=== PATIENT | female | born 1940 | race Caucasian/White ===

== ENCOUNTER 2021-09-12 18:33 | Observation (INO) | payer MEDICARE, SELFPAY ==
[2021-09-12] VITALS (7 sets, daily range): BP systolic 159–178; BP diastolic 72–102; PULSE 54–60; RESP 18–23; TEMP 36.2–36.3; O2SAT 94–100; BMI 19.8
--- NOTE | ~2021-09-12 | XR_ITS ---
EXAMINATION: XR chest 1V portable INDICATION: Shortness of breath and hypoxia TECHNIQUE: Portable AP chest at 1921 hours COMPARISON: None available FINDINGS: There are minimal airspace opacities of the lung bases. No pleural effusion or pneumothorax is identified. The cardiomediastinal silhouette is normal. IMPRESSION: 1. Minimal bibasilar airspace opacities, consistent with atelectasis versus pneumonia. Reviewed, dictated and finalized at location A. IMPRESSION: 1. Minimal bibasilar airspace opacities, consistent with atelectasis versus pne umonia.
--- NOTE | ~2021-09-12 | CT_ITS ---
EXAMINATION: CTA chest PE protocol DATE: 09/13/2021 09:58 INDICATION: Shortness of breath TECHNIQUE: Computed tomography angiography (CTA) of the chest was performed with 100 mL Omnipaque-350 intravenous contrast timed to evaluate the pulmonary arteries. Coronal maximum intensity projection 3D-reconstructions were created by the technologist. The dose-length product (DLP) was 190.23 mGy-cm. Automated exposure control and iterative reconstruction technique were employed. COMPARISON: None. FINDINGS: The pulmonary arteries are well-opacified. No pulmonary embolism is identified. There is mi ld motion artifact in the lung bases limiting sensitivity. There is moderate emphysema. Atelectasis i s noted in the lower lobes. There is no pleural effusion or pneumothorax. No pathologically enlarged thoracic lymph nodes are identified. The heart size is normal. The gallbladder is surgically absent. There is mild thoracic and moderate lumbar spondylosis. IMPRESSION: 1. No pulmonary embolus identified. Reviewed, dictated and finalized at location A.
--- NOTE | 2021-09-12 18:42 | ECG_ITS ---
Measurements Intervals [place] Rate: 58 P: PA: 0 QRS: 40 QRSD: 99 T: 82 QT: 422 QTc: 418 Interpretive Statements SINUS BRADYCARDIA BORDERLINE T WAVE ABNORMALITY- HIGH LATERAL LEADS BASELINE ARTIFACT- II, III, AVR, AVL, AVF, V1-V6 BORDERLINE ECG Electronically Signed On 09-15-2021 8:54:00 CDT by Corey Mcnamara D.O.
--- NOTE | 2021-09-12 18:44 | ED.GENADULT ---
HPI - General Adult General Chief complaint: Shortness of Breath/Dyspnea Stated complaint: AMB Source: patient Mode of arrival: EMS Limitations: no limitations History of Present Illness HPI narrative: Rossy is an 80F with a PMH of anxiety, tobacco abuse, and fibromyalgia brought in by EMS for SOB and cough. It started about 2 hours ago when she just couldn't catch her breath. She is coughing with it as well. She has some slight discomfort in her left chest that does not radiate. She denies N/V and lightheadedness. She denies asthma/COPD and has never had this happen before. Per EMS she was low 80's on arrival but came up to mid 90's with albuterol and 15L by non-rebreather. Related Data Home Medications Medication Instructions Recorded Confirmed atenolol 100 mg PO DAILY 09/12/21 09/12/21 buspirone 10 mg PO TID 09/12/21 09/12/21 gabapentin 600 mg PO DAILY 09/12/21 09/12/21 levothyroxine 100 mcg PO DAILY 09/12/21 09/12/21 pregabalin 100 mg PO BID 09/12/21 09/12/21 tizanidine 4 mg PO HS 09/12/21 09/12/21 Allergies Allergy/AdvReac Type Severity Reaction Status Date / Time No Known Allergies Allergy Verified 09/13/21 08:52 Review of Systems Constitutional: Constitutional: Denies chills and Denies fever(s) Eyes: Eyes: Reports no additional eye complaints ENT: Reports system reviewed and no additional complaints, except as documented Cardiovascular: Cardiovascular: Reports as per HPI Respiratory: Respiratory: Reports as per HPI Gastrointestinal: Gastrointestinal: Reports no additional gastrointestinal complaints Genitourinary: Genitourinary: Reports no additional female genitourinary complaints Musculoskeletal: Musculoskeletal: Reports no additional musculoskeletal complaints Integumentary/Breasts: Skin/Breast: Reports system reviewed and no additional complaints, except as docu Neurologic: Reports system reviewed and no additional complaints, except as documented Psychiatric: Psychiatric: Reports no additional psychiatric complaints Endocrine: Endocrine: Reports no additional endocrine complaints Hematologic/Lymphatic: Hematologic/Lymphatic: Reports no additional hematologic/lymphatic complaints Allergic/Immunologic: Allergic/Immunologic: Reports no additional allergic/immunologic complaints [facility] Social History Social History Smoking status: Never smoker Second hand tobacco smoke exposure: No Alcohol intake: never Substance use: never Spiritual care concerns: No Exam Const: General: alert and ill appearing; No confusion Orientation/consciousness: patient oriented x3 Limitations: No altered mental status Other: mild to moderate distress HENMT: Head: normal to inspection Other: atrauamtic, normocephalic Eyes: Conjunctivae: conjunctivae normal Pupils: Equal, round and reactive pupils present Neck: Neck: normal visual inspection Chest: Chest palpation & inspection: normal inspection of the chest Resp: Effort & Inspection: labored, tachypneic and uses accessory muscles Other: Tachypnea, decreased breath sounds and crackles on the right side Cardio: Rate: tachycardic Rhythm: regular rhythm Heart sounds: no murmurs GI: Inspection: non-distended GI Palp: Yes Soft to palpation, No Tenderness to palpation present (GI) and No Guarding due to palpation present (GI) : General: Yes no CVA tenderness Back/Spine/Pelvis: Back: no CVA tenderness Skin: General skin exam: normal color Rashes: no rashes Neuro: General: patient oriented x3 and moves all extremities Extrem: General: normal to inspection Psych: Appearance: grossly normal Mental Status: mental status grossly normal Thought content: Yes Normal thought content present Course Course Emergency Course: Rossy was evaluated. Ordered EKG, CXR and labs and she was placed. While drawing labs she calmed down and her O2 was weaned down to 5L. EKG showed Sinus br
[2021-09-12 19:09] LABS: Base Excess ABG -0.3 mmol/L (0-2); HCO3 ABG 25.2 mmol/L (23-29); Oxygen Content ABG 20.6 %vol (16.0-22.0); Oxygen Saturation ABG 98.1 % (95-97); Oxyhemoglobin 96.1 % (94-100); PCO2 ABG 44.2 mmHg (35-45); PO2 ABG 134.6 mmHg (75-85); Total Hemoglobin 15.1 g/dL (12.0-18.0); pH ABG 7.37 (7.35-7.45)
[2021-09-12 19:14] LABS: Basophils Absolute Auto 0.07 K/mm3 (0.00-0.10); Basophils Percent Auto 0.8 % (0.0-1.0); Eosinophils Absolute Auto 0.36 K/mm3 (0.02-0.50); Hematocrit 45.3 % (35.0-42.0); Hemoglobin 14.5 g/dL (11.7-13.8); Immature Granulocyte Absolute 0.02 K/mm3 (0.00-0.00); Immature Granulocyte Percent A 0.2 % (0.0-0.0); Lymphocytes Absolute Auto 3.31 K/mm3 (1.10-4.50); Lymphocytes Percent Auto 37.2 % (18.0-42.0); Mean Platelet Volume 11.1 fl (9.2-11.8); Monocytes Absolute Auto 0.63 K/mm3 (0.10-0.90); Monocytes Percent Auto 7.1 % (2.0-11.0); Neutrophils Absolute Auto 4.5 K/mm3 (1.7-7.2); Neutrophils Percent Auto 50.7 % (50.0-70.0); Platelet Count Result 215 K/mm3 (150-420); Red Blood Count 4.53 M/mm3 (4.20-5.40); Red Cell Distribution Width 14.6 % (11.6-14.4); White Blood Count 8.9 K/mm3 (4.8-10.8)
[2021-09-12 19:19] LABS: Device NON-REBREATHER MASK; Modified Allen's Test Pass; Site Drawn RIGHT RADIAL
[2021-09-12 19:27] LABS: INR 0.9; Prothrombin Time 9.9 Seconds (9.50-12.10)
[2021-09-12 19:32] LABS: Lactic Acid Reflex 1.6 mmol/L (0.4-2.0)
[2021-09-12 19:36] LABS: Alanine Aminotransferase 63 U/L (14-59); Albumin Level 3.6 g/dL (3.4-5.0); Alkaline Phosphatase 73 U/L (46-116); Anion Gap 9 mmol/L (8-16); Aspartate Amino Transferase 27 U/L (15-37); Bilirubin,Total 0.3 mg/dL (0.00-1.00); Blood Urea Nitrogen 23 mg/dL (7-18); Carbon Dioxide 30 mmol/L (21-32); Chloride 103 mmol/L (98-108); Estimated Glomerular Filt Rate 51; Glucose 100 mg/dL (70-99); Magnesium 2.1 mg/dL (1.8-2.4); NT Pro B Type Natriuretic Pept 291 pg/mL (0-450); Osmolality Calculated 297 mOsm/kg (285-295); Potassium 3.7 mmol/L (3.5-5.1); Sodium 142 mmol/L (136-145); Total Protein 7.4 g/dL (6.4-8.2)
[2021-09-12 19:37] LABS: D Dimer 1.03 mg/L (0.19-0.50)
[2021-09-12 19:38] LABS: Troponin I 8.6 ng/L (0.00-60.4)
[2021-09-12 19:59] LABS: Influenza A QL RT-PCR Negative (Negative); Influenza B QL RT-PCR Negative (Negative); SARS-CoV-2 RNA PCR Negative (Negative)
[2021-09-12 21:08] LABS: Appearance Urine Clear (Clear); Bilirubin Urine Negative (Negative); Color Urine Light Yellow (Yellow); Glucose Urine UA Negative (Negative); Ketones Urine Negative (Negative); Leukocyte Esterase Ur Negative (Negative); Nitrate Urine Negative (Negative); Protein Urine Negative (Negative); Urobilinogen Urine 0.2 mg/dL (0.2-1.0); pH Urine 5.5 (5.0-8.0)
[2021-09-12 21:12] LABS: Add Urine Microscopic? YES; Bacteria Urine Trace /hpf; Blood Urine Trace-Intact (Negative); Squamous Epithelial Cell Urine Occasional /hpf (Few); WBC Urine 0-3 /hpf (0-3)
[2021-09-12] MEDS: AZITHROMYCIN 250 MG TABLET 500 MG PO (22:04)
[2021-09-12] MEDS: predniSONE 40 MG, predniSONE 10 MG 50 MG PO (22:04)
--- NOTE | 2021-09-12 22:43 | PC.NURSE ---
pt alert and oriented. pt unable to verify her past medical history at this time. pt past medical history and home medication list update with information obtained from patient and prescription bottles that the pt brought with her.
--- NOTE | 2021-09-12 23:43 | PC.NURSE ---
Patient admitted to room 206 from ER, is alert and oriented times 3 but is a poor historian and is forgetful about some things. Oriented to room and surroundings and call light.
[2021-09-13] MEDS: TIZANIDINE HCL 4 MG TABLET PO (00:46)
[2021-09-13] MEDS: LORazepam (*CRX) 0.5 MG TABLET PO (00:46)
[2021-09-13 04:00] VITALS: BP 153/78; PULSE 63; RESP 20; TEMP 36.2; O2SAT 96
[2021-09-13 05:47] LABS: Basophils Absolute Auto 0.02 K/mm3 (0.00-0.10); Basophils Percent Auto 0.3 % (0.0-1.0); Eosinophils Absolute Auto 0.01 K/mm3 (0.02-0.50); Eosinophils Percent Auto 0.1 % (1.0-6.0); Hematocrit 44.1 % (35.0-42.0); Hemoglobin 14.8 g/dL (11.7-13.8); Immature Granulocyte Absolute 0.03 K/mm3 (0.00-0.00); Immature Granulocyte Percent A 0.4 % (0.0-0.0); Lymphocytes Absolute Auto 1.37 K/mm3 (1.10-4.50); Lymphocytes Percent Auto 18.9 % (18.0-42.0); Mean Corpuscular HGB Conc 33.6 g/dL (32.0-36.0); Mean Corpuscular Hemoglobin 32.7 pg (27.0-31.0); Mean Corpuscular Volume 97.4 fL (78.0-102.0); Mean Platelet Volume 11.2 fl (9.2-11.8); Monocytes Absolute Auto 0.11 K/mm3 (0.10-0.90); Monocytes Percent Auto 1.5 % (2.0-11.0); Neutrophils Absolute Auto 5.7 K/mm3 (1.7-7.2); Neutrophils Percent Auto 78.8 % (50.0-70.0); Platelet Count Result 198 K/mm3 (150-420); Red Blood Count 4.53 M/mm3 (4.20-5.40); Red Cell Distribution Width 14.4 % (11.6-14.4); White Blood Count 7.2 K/mm3 (4.8-10.8)
[2021-09-13 05:54] LABS: Anion Gap 8 mmol/L (8-16); Blood Urea Nitrogen 20 mg/dL (7-18); Calcium 8.8 mg/dL (8.5-10.1); Carbon Dioxide 27 mmol/L (21-32); Chloride 107 mmol/L (98-108); Estimated CRCL calculation 42 ml/min; Estimated Glomerular Filt Rate > 60; Glucose 144 mg/dL (70-99); Osmolality Calculated 299 mOsm/kg (285-295); Potassium 4.3 mmol/L (3.5-5.1); Sodium 142 mmol/L (136-145)
[2021-09-13] MEDS: LEVOTHYROXINE SODIUM 100 MCG TABLET PO (06:16)
[2021-09-13 07:45] VITALS: BP 152/74; PULSE 67; RESP 18; TEMP 36.4; O2SAT 94
[2021-09-13 08:00] VITALS: PULSE 64
[2021-09-13 09:13] VITALS: PULSE 67
[2021-09-13] MEDS: AZITHROMYCIN 250 MG TABLET 500 MG PO (09:13)
[2021-09-13] MEDS: atenoloL 50 MG TABLET 100 MG PO (09:13)
[2021-09-13] MEDS: GABAPENTIN 300 MG CAPSULE 600 MG PO (09:13)
[2021-09-13] MEDS: LORazepam INJ (*CRX) 2 MG/ML VIAL 1 MG IV PUSH (09:13)
[2021-09-13] MEDS: busPIRone HCL 5 MG TABLET 10 MG PO (09:14)
[2021-09-13] MEDS: ENOXAPARIN 60 MG/0.6 ML SYRINGE 54 MG SUB-Q (09:14)
[2021-09-13] MEDS: predniSONE 20 MG TABLET 40 MG PO (09:14)
[2021-09-13 10:20] VITALS: O2SAT 95
--- NOTE | 2021-09-13 11:43 | PM.SD2 ---
Same Day Admit/Disch: HPI History of Present Illness Chief complaint: AMB Narrative: smiley palmer is a 80 year old female that presented to the ED SOB/Dyspnea. She has a pmhx of of htn, hypothyroidism, and copd. Patient noted that yesterday she was outside playing with kitten and went in the house and started experience SOB with chest discomfort she did not do anything to relieve her symptoms. According to patient she has never experience sob and does admit to a hx of smoking. She seem to have a deficiency in memory more than likely undiagnosed dementia.Patient noted that her symptoms resolved before she reached the hospital. Vs 97.6, 67,18,94% RA, 152/74, wbc 7.2, hgb 14.8, hct 44.1, plt 198,dimer 1.03, na 142, K 4.3,BUN 20, Cr 0.73, glucose 144, covid negative, cxr atelectasis versus pneumonia, CTA no PE. The patient denies SOB, CP, palpitation, extremity numbness, lightheadedness, dizziness, constipation, diarrhea, chills, or fever. [facility] Social History Social History Smoking status: Never smoker Second hand tobacco smoke exposure: No Alcohol intake: never Substance use: never Spiritual care concerns: No Same Day Admit/Disch: Med Pre-admit Medications Home Medications Medication Instructions Recorded Confirmed Type atenolol 100 mg PO DAILY 09/12/21 09/12/21 History buspirone 10 mg PO TID 09/12/21 09/12/21 History gabapentin 600 mg PO DAILY 09/12/21 09/12/21 History levothyroxine 100 mcg PO DAILY 09/12/21 09/12/21 History pregabalin 100 mg PO BID 09/12/21 09/12/21 History tizanidine 4 mg PO HS 09/12/21 09/12/21 History albuterol sulfate 1 inh INHALATION QID PRN #8.5 g 09/13/21 Rx azithromycin [Zithromax] 500 mg PO DAILY 10 Days #20 tablet 09/13/21 Rx benzonatate [Tessalon Perles] 100 mg PO BID PRN #30 cap 09/13/21 Rx budesonide-formoterol [Symbicort] 2 puff INHALATION Q12H #10.2 g 09/13/21 Rx guaifenesin [Mucinex] 600 mg PO Q12H PRN #30 tablet 09/13/21 Rx prednisone 10 mg PO DAILY #21 tablet 09/13/21 Rx Exam Narrative: GENERAL: This is a well-nourished, well-developed patient, in no apparent distress. HEAD: normocephalic, atraumatic. EYES: PERRL. Sclera clear/white. Vision is grossly intact. EARS: External ears normal, auditory canals clear and without drainage, TMs normal without perforation. Hearing grossly intact. NOSE: External nose normal with no obvious nasal discharge, nares without redness, no rhinorrhea. THROAT: Mucous membranes moist, posterior pharynx clear. NECK: Neck supple, non-tender without lymphadenopathy, masses or thyromegaly. CARDIOVASCULAR: Regular rate and rhythm without murmurs, gallops, or rubs. RESPIRATORY: Diminished GASTROINTESTINAL: Abdomen soft, non-tender, nondistended. Bowel sounds are active. No hepato-splenomegaly, or palpable masses. No guarding. SKIN: warm, intact with no suspicious lesions or rash, good texture and turgor. NEURO: awake, alert, and oriented to person, place and time. There were no obvious focal neurologic abnormalities. Steady gait EXTREMITIES: Normal range of motion. No edema. No calf tenderness. Negative Homans sign bilaterally. BACK: Nontender without deformity or crepitance. No flank tenderness. DS: Data Data Completed and Pending Labs on day of discharge: Labs from last 24 hours 09/13/21 09/13/21 09/12/21 05:41 05:40 21:00 WBC 7.2 RBC 4.53 Hgb 14.8 H Hct 44.1 H MCV 97.4 MCH 32.7 H MCHC 33.6 RDW 14.4 Plt Count 198 MPV 11.2 Immature Gran % (Auto) 0.4 H Neut % (Auto) 78.8 H Lymph % (Auto) 18.9 [facility] [place] % (Auto) 1.5 L Eos % (Auto) 0.1 L Baso % (Auto) 0.3 Lymph # (Auto) 1.37 [facility] [place] # (Auto) 0.11 Eos # (Auto) 0.01 L Baso # (Auto) 0.02 Abs Immat Gran (auto) 0.03 H Absolute Neuts (auto) 5.7 Absolute Nucleated RBC 0.00 Nucleated RBC % 0.0 PT INR D-Dimer Puncture Site ABG pH ABG pCO2 ABG pO2 ABG
[2021-09-13 12:00] VITALS: PULSE 65
--- NOTE | 2021-09-13 13:05 | PC.NURSE ---
Patient discharging home. All belongings gathered together and sent home with patient. Patients home medications returned. IV site removed, tip intact,dressing applied to site. All discharge instructions and education reviewed with patient and son. Both parties state understanding. Patient accompanied to front door via wheelchair by this nurse. Left via private vehicle with son. Patient denies any question at discharge.
--- NOTE | 2021-09-16 12:02 | PC.NURSE ---
Unable to contact for discharge call back.
== END 2021-09-13 13:05 | disposition home or self-care (01) ==
LOC: CHSED 22:13 → CHS2ND 22:19
PROVIDERS: Admitting Provider Family Medicine; Emergency Provider Family Medicine; PCP Physician Assistant; Visit Provider Family Medicine
DX: J44.9 Chronic obstructive pulmonary disease, unspecified (principal); R79.89 Other specified abnormal findings of blood chemistry; M79.2 Neuralgia and neuritis, unspecified; M79.7 Fibromyalgia; E03.9 Hypothyroidism, unspecified; F41.9 Anxiety disorder, unspecified; Z20.822 Contact with and (suspected) exposure to COVID-19
CPT/HCPCS: 36415; 36600; 71045; 71275; 80048; 80053; 81001; 82805; 83605; 83735; 83880; 84484; 85025; 85380; 85610; 87040; 87502; 93005; 96372; 96374; 99284; 99285; A9270; C9803; G0378; J1650; J2060; J7512; Q9967; U0003; U0005

== ENCOUNTER 2023-12-16 22:37 | Inpatient (IN) | payer MEDICARE, SELFPAY ==
--- NOTE | ~2023-12-16 | XR_ITS ---
EXAMINATION: XR chest 1V portable DATE: 12/16/2023 23:04 INDICATION: Shortness of breath. TECHNIQUE: A single frontal view of the chest was obtained on 2 radiographs. COMPARISON: Chest single view 09/12/2021, chest CT 09/13/2021 FINDINGS: There are lucencies in the lungs, consistent with emphysema. There are airspace opacities i n the lower lung zones. No pleural effusion or pneumothorax. The heart size is normal. Surgical clips in the right upper quadrant are likely from cholecystectomy. IMPRESSION: 1. Airspace opacities in the lower lung zones, consistent with atelectasis versus pneumonia. 2. Emphysema. Reviewed, dictated and finalized at location E. [employer] MANAGER [employer]SPORTATION IMPRESSION: 1. Airspace opacities in the lower lung zones, consistent with atelectasis vers us pneumonia. 2. Emphysema.
--- NOTE | ~2023-12-16 | CT_ITS ---
Clinical Indication: Covid, pneumonia, hypoxia CT Scan of the Chest with Contrast: Technique: Contiguous sections were acquired throughout the chest after intravenous administration of 100 cc of Omnipaque 350. Dose reduction technique was used on this scan by utilizing automated expos ure control and iterative reconstruction technique. The dose-length product (DLP) was 453.14 mGy-cm. COMPARISON: 09/13/2021 Findings: There is no evidence of any significant mediastinal, hilar or axillary lymphadenopathy. There is no c entral pulmonary embolus. Evaluation for small peripheral pulmonary emboli is limited. There is no ev idence of aortic dissection or aneurysm. There is no evidence of pleural or pericardial effusion. There is bibasilar consolidation, right worse than left, likely atelectatic change. Images through the upper abdomen reveal no abnormalities. Impression: No pulmonary embolus seen. Evaluation for small peripheral pulmonary emboli is limited. Probable bibasilar atelectasis, right worse than left. Correlate clinically for pneumonia. Reviewed, dictated and finalized at [facility]. BUILDER AND REPAIRER Impression: No pulmonary embolus seen. Evaluation for small peripheral pulmonary emboli is limited. Probable bibasilar atelectasis, right worse than left. Correlate clinically for pneumonia.
[2023-12-16 22:36] VITALS: BP 92/48; PULSE 72; RESP 15; TEMP 36.6; O2SAT 93
[2023-12-16 22:43] VITALS: O2SAT 87
--- NOTE | 2023-12-16 22:46 | ECG_ITS ---
Measurements Intervals [place] Rate: 56 P: 52 WA: 203 QRS: -7 QRSD: 96 T: 93 QT: 437 QTc: 422 Interpretive Statements SINUS BRADYCARDIA POSSIBLE LEFT ATRIAL ENLARGEMENT BORDERLINE ST-T WAVE ABNORMALITY- LAT/MILLER LAT LEADS BASELINE ARTIFACT- V4-V5 BORDERLINE ECG COMPARED TO ECG 09/12/2021 19:33:41 ST-T WAVE ABNORMALITY NOW PRESENT Electronically Signed On 12-17-2023 6:11:35 PET AMBASSADOR by Coery Mcnamara D.O.
[2023-12-16] MEDS: SODIUM CHLORIDE 0.9% IV 1,000 ML 999 ML IV CONT (23:29)
[2023-12-16 23:42] LABS: Basophils Absolute Auto 0.1 K/mm3 (0.0-0.1); Basophils Percent Auto 0.6 % (0.2-1.2); Eosinophils Absolute Auto 0.3 K/mm3 (0-0.3); Eosinophils Percent Auto 3.7 % (0-4.4); Hematocrit 44.2 % (37.0-47.0); Hemoglobin 13.9 g/dL (12.0-15.0); Immature Granulocyte Absolute 0.01 K/mm3 (0.00-0.031); Immature Granulocyte Percent A 0.1 % (0-0.5); Lymphocytes Absolute Auto 2.53 K/mm3 (0.9-3.2); Lymphocytes Percent Auto 32.3 % (18.3-44.2); Mean Corpuscular HGB Conc 31.4 g/dl (32-36); Mean Corpuscular Hemoglobin 31.7 pg (26-34); Mean Corpuscular Volume 100.9 fl (80-100); Mean Platelet Volume 12.1 fl (7.4-10.4); Monocytes Absolute Auto 0.8 K/mm3 (0.1-0.6); Neutrophils Absolute Auto 4.2 K/mm3 (1.3-6.7); Neutrophils Percent Auto 53.3 % (45.5-73.1); Platelet Count Result 196 k/mm3 (150-375); Red Blood Count 4.38 M/mm3 (4.2-5.4); Red Cell Distribution Width 13.7 % (11.5-14.5); White Blood Count 7.8 K/mm3 (4.5-10.0)
[2023-12-16 23:54] LABS: Lactic Acid Reflex 1.3 mmol/L (0.7-2.0)
[2023-12-16 23:58] LABS: Alanine Aminotransferase 15 U/L (6-35); Albumin Level 3.5 g/dL (3.5-5.1); Alkaline Phosphatase 64 U/L (38-126); Anion Gap 7 mmol/L (8-16); Aspartate Amino Transferase 23 U/L (14-36); Bilirubin,Total 0.9 mg/dL (0.2-1.3); Blood Urea Nitrogen 35 mg/dL (7-17); Calcium 8.8 mg/dL (8.4-10.2); Carbon Dioxide 30 mmol/L (22-30); Chloride 102 mmol/L (98-107); Estimated CRCL calculation 28 ml/min; Estimated Glomerular Filt Rate 43; Glucose 104 mg/dL (65-110); Potassium 3.8 mmol/L (3.4-5.0); Sodium 139 mmol/L (137-145)
[2023-12-17] VITALS (11 sets, daily range): BP systolic 90–128; BP diastolic 47–76; PULSE 55–64; RESP 15–19; TEMP 35.9–36.6; O2SAT 90–100
[2023-12-17 00:05] LABS: NT Pro B Type Natriuretic Pept 387 pg/mL (19.9-100); Troponin I 0.014 ng/mL (0.000-0.034)
[2023-12-17 00:18] LABS: Influenza A QL RT-PCR Negative (Negative); Influenza B QL RT-PCR Negative (Negative); RSV RNA, RT-PCR Negative (Negative); SARS-CoV-2 RNA PCR Positive (Negative)
--- NOTE | 2023-12-17 00:31 | ED.SOB ---
HPI - SOB/Dyspnea General Chief Complaint: Shortness of Breath/Dyspnea Stated Complaint: abnormal cxr Time Seen by Provider: 12/16/23 23:19 Source: patient and old records reviewed Mode of arrival: EMS Limitations: dementia History of Present Illness HPI Narrative: Patient is an 83-year-old female, with past medical history of COPD, CKD, cerebral infarction, who presents the ED via EMS with report of abnormal chest x-ray, hypoxia. Patient is a resident of [facility]. Per detention report, patient is A&O X1 at baseline. NH reported patient has had a recent cough. They performed an outpatient chest x-ray which showed possibility of pneumonia. She was then sent here for further evaluation. EMS noted patient to be hypoxic on room air upon arrival into the upper 80s. She was placed on 2 L nasal cannula. Patient does not typically require oxygen. Patient denies any pain upon my evaluation. Unable to provide any further information. Related Data Home Medications Medication Instructions Recorded Confirmed atenolol 100 mg tablet 100 mg PO DAILY 09/12/21 09/12/21 buspirone 10 mg tablet 10 mg PO TID 09/12/21 09/12/21 gabapentin 100 mg capsule 600 mg PO DAILY 09/12/21 09/12/21 levothyroxine 100 mcg tablet 100 mcg PO DAILY 09/12/21 09/12/21 pregabalin 100 mg capsule 100 mg PO BID 09/12/21 09/12/21 tizanidine 4 mg tablet 4 mg PO HS 09/12/21 09/12/21 Allergies Allergy/AdvReac Type Severity Reaction Status Date / Time No Known Allergies Allergy Verified 09/13/21 08:52 Review of Systems Review of Systems: ROS unobtainable: Yes unobtainable due to mental status [facility] Social History Social History Smoking status: Never smoker Second hand tobacco smoke exposure: No Alcohol intake: never Substance use: never Spiritual care concerns: No Exam Narrative: GENERAL: Elderly, chronically ill-appearing, non-toxic, in no acute distress. HEAD: Normocephalic, atraumatic. ENT: MMs dry. Partially edentulous RESPIRATORY: Airway patent, respirations nonlabored. Clear to auscultation bilaterally, no rales, rhonchi, wheezing. No significant focal lung sounds. CARDIOVASCULAR: Borderline bradycardic with regular rhythm without murmurs, rubs, or gallops. ABDOMINAL: Soft, no appreciable tenderness throughout the abdomen. Normoactive BS. MUSCULOSKELETAL: Moves all extremities. No gross deformities. No significant lower extremity edema. SKIN: Warm, dry, normal color. NEURO: A&O X1-2, knows her name and that she is at [facility]. Intermittently confused. Speech somewhat garbled. No ataxic movements. PSYCHIATRIC: Appropriate mood and affect. Normal interaction. Course Vital Signs Vital signs: Vital Signs Temperature 97.9 F 12/16/23 22:36 Pulse Rate 72 12/16/23 22:36 Respiratory Rate 15 12/16/23 22:36 Blood Pressure 92/48 L 12/16/23 22:36 Pulse Oximetry 93 12/16/23 22:36 Oxygen Delivery Room Air 12/16/23 22:36 Temperature 97.9 F 12/16/23 22:36 Pulse Rate 56 L 12/17/23 01:40 Respiratory Rate 15 12/17/23 01:40 Blood Pressure 112/58 L 12/17/23 01:40 Pulse Oximetry 100 12/17/23 01:40 Oxygen Delivery Room Air 12/16/23 22:43 MDM - SOB/Dyspnea MDM Narrative Medical decision making narrative: Patient presents to ED with abnormal outpatient chest x-ray, found to be hypoxic by EMS, detention reported recent cough. Patient was hypoxic upon arrival into the upper 80s, placed on 2 L nasal cannula. Borderline hypotensive. Fluids ongoing. Afebrile. Cbc without leukocytosis. Stable H& H. CMP fairly unremarkable. Creatinine 1.2. No recent records to compare to. Lactic acid within normal limits at 1.3. Blood cultures were obtained. EKG sinus bradycardia, nonspecific ST changes, no acute STEMI. Baseline troponin 0.014. Will continue to trend. Patient alert and oriented x1-2 (per her baseline), but is abl
--- NOTE | 2023-12-17 00:50 | ECG_ITS ---
Measurements Intervals [place] Rate: 57 P: 50 NE: 272 QRS: 24 QRSD: 112 T: 0 QT: 453 QTc: 444 Interpretive Statements SINUS BRADYCARDIA WITH FIRST DEGREE AV BLOCK CANNOT RULE OUT SEPTAL INFARCT, AGE INDETERMINATE BORDERLINE ST-T WAVE ABNORMALITY- INF/HIGH LAT LEADS BASELINE ARTIFACT- I, II, III, AVR, AVL, AVF, V1, V4-V6 ABNORMAL ECG COMPARED TO ECG 12/16/2023 22:48:51 FIRST DEGREE AV BLOCK NOW PRESENT Electronically Signed On 12-17-2023 6:15:43 ROVING CHANGER by Corey Mcnamara D.O.
[2023-12-17 01:37] LABS: Alveolar/Arterial O2 Gradient 190.9 mmHg; Base Excess ABG -2.6 mEq/l (+/-2.0); Carboxyhemoglobin 0.3 % THb (0-2.0); Fractional Inspired Oxygen 32 %; HCO3 ABG 23.2 mEq/l (22.0-26.0); Methemoglobin ABG 0.4 %THb (0-1.5); Oxygen Content ABG 15.7 %vol (16.0-22.0); Oxygen Saturation ABG 90.7 % (95.0-100.0); Oxyhemoglobin 89.4 % THb (90.0-100.0); PCO2 ABG 43.6 mmHg (35.0-45.0); PO2 ABG 62.5 mmHg (80.0-100.0); PO2 FiO2 Ratio Arterial Blood 1.95 %; Reduced Hemoglobin 9.9 %THb (0-5.0); Total Hemoglobin 12.5 g/dL (12.0-18.0); pH ABG 7.343 (7.350-7.450)
[2023-12-17 01:38] LABS: Device NASAL CANNULA; Modified Allen's Test Pass; Site Drawn RIGHT RADIAL
[2023-12-17] MEDS: SODIUM CHLORIDE 0.9% IV 500 ML 999 ML IV CONT (01:40)
[2023-12-17] MEDS: REMDESIVIR 200 MG/NS 250 ML 200 MG/250 ML BAG 250 MG IVPB (02:35)
--- NOTE | 2023-12-17 03:02 | PM.IMHP ---
H&P: HPI History of Present Illness Date/Time: 12/17/23 03:02 Chief Complaint: Abnormal chest x-ray, shortness of bread Narrative: Patient is a resident of [facility], she has history of COPD however she does not use oxygen at the [facility] facility, at baseline she is alert and oriented times one. She has cough for some days now and outpatient chest x-ray was done which shows the patient has pneumonia, she was also noted to have low oxygen saturation requiring 2 L of oxygen. History was limited by inability of patient to provide details. Patient was found to have acute COVID-19 infection in the ER. She still continued to require 2 L of oxygen however she is awake alert not in distress, Decadron remdesivir was initiated in the ED and I was consulted for admission of this patient for further management Review of Systems Review of Systems: All systems reviewed & are unremarkable except as noted in HPI and below PMFSH Social History Social History Smoking status: Never smoker Second hand tobacco smoke exposure: No Alcohol intake: never Substance use: never Spiritual care concerns: No Meds Home Medications and Allergies Home Medications Medication Instructions Recorded Confirmed Type atenolol 100 mg tablet 100 mg PO DAILY 09/12/21 09/12/21 History buspirone 10 mg tablet 10 mg PO TID 09/12/21 09/12/21 History gabapentin 100 mg capsule 600 mg PO DAILY 09/12/21 09/12/21 History levothyroxine 100 mcg tablet 100 mcg PO DAILY 09/12/21 09/12/21 History pregabalin 100 mg capsule 100 mg PO BID 09/12/21 09/12/21 History tizanidine 4 mg tablet 4 mg PO HS 09/12/21 09/12/21 History albuterol sulfate 90 mcg/actuation 1 inh inhalation QID PRN shortness 09/13/21 Rx aerosol inhaler of breath or wheezing #8.5 grams azithromycin 250 mg tablet 500 mg PO DAILY 10 days #20 tabs 09/13/21 Rx (Zithromax) benzonatate 100 mg capsule 100 mg PO BID PRN cough #30 caps 09/13/21 Rx (Tessalon Perles) budesonide-formoterol HFA 80 2 puff inhalation Q12H #10.2 grams 09/13/21 Rx mcg-4.5 mcg/actuation aerosol inhaler (Symbicort) guaifenesin 600 mg tablet, 600 mg PO Q12H PRN congestion #30 09/13/21 Rx extended release 12 hr (Mucinex) tabs prednisone 10 mg tablet 10 mg PO DAILY #21 tabs 09/13/21 Rx Allergies Allergy/AdvReac Type Severity Reaction Status Date / Time No Known Allergies Allergy Verified 09/13/21 08:52 Vital Signs Vital Signs - 24 hr 12/16/23 22:36 12/16/23 22:43 12/17/23 00:13 Temperature 97.9 F Pulse Rate 72 56 L Respiratory Rate 15 18 Blood Pressure 92/48 L 90/52 L Pulse Oximetry 93 87 L 95 Oxygen Delivery Room Air Room Air 12/17/23 01:40 Temperature Pulse Rate 56 L Respiratory Rate 15 Blood Pressure 112/58 L Pulse Oximetry 100 Oxygen Delivery Exam Narrative: General: Not in distress, dehydrated, frail HEENT: Normocephalic atraumatic, dry oral mucosa Respiratory: Decreased breath sounds diffusely on both lateral lung zones, no wheezing rales or crackle Cardiovascular: Regular rate and rhythm normal no gallop, no edema Gastrointestinal: Nondistended, nontender, bowel sounds within normal Musculoskeletal/skin: Range of motion intact, no rash Neuro: No focal deficits H&P: Results Labs Labs: Short CBC 12/16/23 Range/Units 23:32 WBC 7.8 (4.5-10.0) K/mm3 Hgb 13.9 (12.0-15.0) g/dL Hct 44.2 (37.0-47.0) % Plt Count 196 (150-375) k/mm3 [facility] 12/16/23 23:32 Sodium 139 Potassium 3.8 Chloride 102 Carbon Dioxide 30 BUN 35 H Creatinine 1.20 H Glucose 104 Calcium 8.8 Cardiac Enzymes 12/16/23 Range/Units 23:32 Troponin I 0.014 (0.000-0.034) ng/mL Liver Function 12/16/23 Range/Units 23:32 Total Bilirubin 0.9 (0.2-1.3) mg/dL AST 23 (14-36) U/L ALT 15 (6-35) U/L Alkaline Phosphatase 64 (38-126) U/L Albumin
[2023-12-17 03:47] LABS: Basophils Percent Auto 0.3 % (0.2-1.2); Eosinophils Absolute Auto 0.2 K/mm3 (0-0.3); Eosinophils Percent Auto 3.2 % (0-4.4); Hematocrit 43.8 % (37.0-47.0); Hemoglobin 13.4 g/dL (12.0-15.0); Immature Granulocyte Absolute 0.01 K/mm3 (0.00-0.031); Immature Granulocyte Percent A 0.2 % (0-0.5); Lymphocytes Absolute Auto 1.45 K/mm3 (0.9-3.2); Lymphocytes Percent Auto 24.1 % (18.3-44.2); Mean Corpuscular HGB Conc 30.6 g/dl (32-36); Mean Corpuscular Hemoglobin 31.2 pg (26-34); Mean Corpuscular Volume 102.1 fl (80-100); Mean Platelet Volume 11.7 fl (7.4-10.4); Monocytes Absolute Auto 0.4 K/mm3 (0.1-0.6); Neutrophils Absolute Auto 3.9 K/mm3 (1.3-6.7); Neutrophils Percent Auto 65.2 % (45.5-73.1); Platelet Count Result 166 k/mm3 (150-375); Red Blood Count 4.29 M/mm3 (4.2-5.4); Red Cell Distribution Width 13.8 % (11.5-14.5)
[2023-12-17 03:58] LABS: Anion Gap 6 mmol/L (8-16); Blood Urea Nitrogen 29 mg/dL (7-17); Calcium 8.3 mg/dL (8.4-10.2); Carbon Dioxide 29 mmol/L (22-30); Chloride 105 mmol/L (98-107); Estimated CRCL calculation 28 ml/min; Estimated Glomerular Filt Rate 43; Glucose 108 mg/dL (65-110); INR 0.9; Potassium 3.6 mmol/L (3.4-5.0); Prothrombin Time 12.6 Seconds (11.1-14.7); Sodium 140 mmol/L (137-145)
[2023-12-17 04:00] LABS: CRP 3.6 mg/dL (<1.0); Lactate Dehydrogenase 167 U/L (120-246)
[2023-12-17 04:10] LABS: Troponin I < 0.012 ng/mL (0.000-0.034)
[2023-12-17 04:17] LABS: D Dimer 1.42 ug/mL (<0.48)
--- NOTE | 2023-12-17 04:25 | PC.NURSE ---
Multiple attempts for an IV after IV infiltrated in the right AC. news production supervisor, hospitalist, and EDP made aware. stranding supervisor contacted to attempt IV access.
[2023-12-17 04:43] LABS: Erythrocyte Sedimentation Rate 24 mm/hr (0-20)
[2023-12-17] MEDS: SODIUM CHLORIDE 0.9% IV 1,000 ML 100 ML IV CONT ×2 (05:20→17:18)
[2023-12-17] MEDS: DOXYCYCLINE 100 MG/NS 100 ML 100 MG/100 ML BAG IVPB ×2 (06:01→17:18)
[2023-12-17 07:07] LABS: Troponin I 0.015 ng/mL (0.000-0.034)
--- NOTE | 2023-12-17 08:08 | ADMGEN ---
This patient, Darlin Vega, was admitted to [facility] Surg Room 328-01. Patient/family oriented to hospital policies and general routines including ID bracelet, bed and alarms, visiting hours, pain management, procedures, bathroom and other care routines, personal items, smoking policy, room service/diet, and visiting hours. Information on how to activate the Rapid Response Team has been discussed. Patient/Family are encouraged to report perceived risks to care and to ask questions if they do not understand what they are told or what they should do.
[2023-12-17] MEDS: ENOXAPARIN 30 MG/0.3 ML SYRINGE SUB-Q (09:00)
--- NOTE | 2023-12-17 15:46 | PM.IMPN ---
Progress Note: A&P Assessment and Plan (1) Acute hypoxic respiratory failure: Code(s): J96.01 - Acute respiratory failure with hypoxia Status: Acute Assessment and Plan: Patient was found to be hypoxic on arrival requiring 2 L nasal cannula She was found to have COVID on her respiratory panel Chest x-ray is showing pneumonia Patient was started on doxycycline and Rocephin for bacterial coverage and also dexamethasone and remdesivir for viral coverage Continue to wean O2 for sat greater than 92 Continue nebulized breathing treatments Troponins negative D-dimer 1.42 CTA of the chest was negative for PE (2) COVID-19: Code(s): U07.1 - COVID-19 Status: Acute Assessment and Plan: See above (3) Opacity of lung on imaging study: Code(s): R91.8 - Other nonspecific abnormal finding of lung field Status: Acute Assessment and Plan: Chest x-ray showing pneumonia Currently covered with doxycycline and Rocephin for bacterial coverage, remdesivir and dexamethasone for viral coverage (4) Hypothyroidism: Code(s): E03.9 - Hypothyroidism, unspecified Status: Acute Assessment and Plan: Restarted Synthroid Will check TSH in the morning (5) HTN (hypertension): Code(s): I10 - Essential (primary) hypertension Status: Acute Assessment and Plan: Blood pressure ranging 104/47 to 126/56 Restarted losartan, hydrochlorothiazide, and atenolol (6) Elevated d-dimer: Code(s): R79.89 - Other specified abnormal findings of blood chemistry Status: Acute Assessment and Plan: D-dimer 1.42 CT of the chest was negative for PE Time Spent With Patient Time with patient: 25 - 35 minutes Subjective Date/time seen: 12/17/23 15:46 Interval history: This is an 83 year old female who presented to the hospital today with complaint of SOB from [facility]. She was found to be hypoxic requiring 2L NC. Most of her history was obtained from EMR as the patient is not able to contribute her history due to her mental status. Work up in hospital included CXR showing airspace opacities in the lower lung zones consistent with pneumonia vrs atelectasis., emphysema also noted. Chest CTA was obtained which was negative for PE, shown probable bibasilar atelectasis right worse than left. EKG showing sinus bradycardia, 1st degree AVB. Labs revealed D-dimer of 1.42, pH 7.343, po2 62.5, BUN 29, Creatinine 1.20, eGFR 43, Ca+ 8.3, Troponin negative x3, CRP 3.6, BNP 387. CBC essentially unremarkable. Respiratory panel positive for COVID. Blood cultures obtained and are pending. She was given 1.5L NS, started on dexamethasone, remdesivir, doxycycline, and Rocephin. On examination today patient is alert to voice and oriented x1, minimally interactive today. Patient currently on 2.5 L nasal cannula, vital signs are stable, she is currently afebrile. Review of Systems Review of Systems: ROS unobtainable: Yes unobtainable due to mental status Exam Narrative: General: In no acute distress, well nourished Head: atraumatic, no encephalopathy Eyes: EOMI, PERRLA, sclera clear ENT: moist mucous membranes, nasal passages clear Neck: supple, no JVD, no adenopathy, trachea midline Cardiac: Normal S1 and S2. No murmur, gallops or friction rubs, peripheral pulses intact. Respiratory: Lungs clear to auscultation, diminished throughout, no adventitious lung sounds Gastrointestinal: soft, non-distended, non-tender, normoactive bowel sounds. : voiding without difficulty. Extremities: moves all extremities well, no edema, good ROM, strength 5/5 Skin: clean, dry, intact. No wounds or lesions. Neuro: Alert to voice and oriented x1, cranial nerves intact, no neuro deficits. Psych: Unable to assess due to mental status Objective Data Vital Signs Vital Signs: Vital Signs - 24 hr 12/16/23 22:36 12/16/23 22:43 12/17/23 00:13 Temperature 97.9 F Pulse Ra
[2023-12-17] MEDS: PREGABALIN (*CRX) 50 MG CAPSULE 100 MG PO (17:18)
[2023-12-17] MEDS: risperiDONE 0.25 MG TABLET PO (21:20)
[2023-12-17] MEDS: MIRTAZAPINE 15 MG TABLET PO (21:20)
[2023-12-17] MEDS: ALPRAZolam (*CRX) 0.5 MG TABLET 2 MG PO (21:20)
[2023-12-17] MEDS: REMDESIVIR 100 MG/NS 250 ML 100 MG/250 ML BAG 250 MG IVPB (22:39)
[2023-12-18] VITALS (7 sets, daily range): BP systolic 127–144; BP diastolic 55–69; PULSE 56–64; RESP 18–20; TEMP 36.5–37.2; O2SAT 88–91
[2023-12-18] MEDS: DOXYCYCLINE 100 MG/NS 100 ML 100 MG/100 ML BAG IVPB ×2 (06:06→17:57)
[2023-12-18] MEDS: LEVOTHYROXINE SODIUM 100 MCG TABLET PO (06:07)
--- NOTE | 2023-12-18 08:41 | PM.IMPN ---
Progress Note: A&P Assessment and Plan (1) Acute hypoxic respiratory failure: Code(s): J96.01 - Acute respiratory failure with hypoxia Status: Acute Assessment and Plan: 12/17/23: Patient was found to be hypoxic on arrival requiring 2 L nasal cannula She was found to have COVID on her respiratory panel Chest x-ray is showing pneumonia Patient was started on doxycycline and Rocephin for bacterial coverage and also dexamethasone and remdesivir for viral coverage Continue to wean O2 for sat greater than 92 Continue nebulized breathing treatments Troponins negative D-dimer 1.42 CTA of the chest was negative for PE 12/18/23: No change to current treatment plan (2) COVID-19: Code(s): U07.1 - COVID-19 Status: Acute Assessment and Plan: See above (3) Opacity of lung on imaging study: Code(s): R91.8 - Other nonspecific abnormal finding of lung field Status: Acute Assessment and Plan: 12/17/23: Chest x-ray showing pneumonia Currently covered with doxycycline and Rocephin for bacterial coverage, remdesivir and dexamethasone for viral coverage 12/18/23: No change to current treatment plan (4) Hypothyroidism: Code(s): E03.9 - Hypothyroidism, unspecified Status: Acute Assessment and Plan: 12/17/23: Restarted Synthroid Will check TSH in the morning 12/18/23: No change to current treatment plan (5) HTN (hypertension): Code(s): I10 - Essential (primary) hypertension Status: Acute Assessment and Plan: 12/17/23: Blood pressure ranging 104/47 to 126/56 Restarted losartan, hydrochlorothiazide, and atenolol 12/18/23: no change to current treatment plan (6) Elevated d-dimer: Code(s): R79.89 - Other specified abnormal findings of blood chemistry Status: Acute Assessment and Plan: 12/17/23: D-dimer 1.42 CT of the chest was negative for PE 12/18/23: no change Time Spent With Patient Time with patient: 25 - 35 minutes Subjective Date/time seen: 12/18/23 08:41 Interval history: 12/17/23: This is an 83 year old female who presented to the hospital today with complaint of SOB from [facility]. She was found to be hypoxic requiring 2L NC. Most of her history was obtained from EMR as the patient is not able to contribute her history due to her mental status. Work up in hospital included CXR showing airspace opacities in the lower lung zones consistent with pneumonia vrs atelectasis., emphysema also noted. Chest CTA was obtained which was negative for PE, shown probable bibasilar atelectasis right worse than left. EKG showing sinus bradycardia, 1st degree AVB. Labs revealed D-dimer of 1.42, pH 7.343, po2 62.5, BUN 29, Creatinine 1.20, eGFR 43, Ca+ 8.3, Troponin negative x3, CRP 3.6, BNP 387. CBC essentially unremarkable. Respiratory panel positive for COVID. Blood cultures obtained and are pending. She was given 1.5L NS, started on dexamethasone, remdesivir, doxycycline, and Rocephin. On examination today patient is alert to voice and oriented x1, minimally interactive today. Patient currently on 2.5 L nasal cannula, vital signs are stable, she is currently afebrile. 12/18/23: On examination today patient is alert and oriented x1, lying in bed. She was crying and stating she was scared while in the room when I entered. I tried to reorient her but she immediately forgets where she is. She is currently on room air at this time. Labs today were essentially unremarkable. Review of Systems Review of Systems: All systems reviewed & are unremarkable except as noted in HPI and below ROS unobtainable: Yes unobtainable due to mental status Constitutional: Constitutional: Reports as per HPI and Reports no additional constitutional complaints Eyes: Eyes: Reports as per HPI and Reports no additional eye complaints ENT: Reports system reviewed and no additional complaints, except as documented and Reports a
[2023-12-18] MEDS: ENOXAPARIN 30 MG/0.3 ML SYRINGE SUB-Q (09:15)
[2023-12-18] MEDS: LOSARTAN POTASSIUM 100 MG TABLET BY MOUTH (10:00)
[2023-12-18] MEDS: atenoloL 50 MG TABLET 100 MG PO (10:00)
[2023-12-18] MEDS: PREGABALIN (*CRX) 50 MG CAPSULE 100 MG PO ×2 (10:00→17:57)
[2023-12-18] MEDS: DULoxetine HCL 30 MG CAPSULE.DR PO (10:00)
[2023-12-18] MEDS: hydroCHLOROthiazide 12.5 MG CAPSULE PO (10:00)
[2023-12-18 10:10] LABS: Basophils Percent Auto 0.3 % (0.2-1.2); Hemoglobin 13.1 g/dL (12.0-15.0); Immature Granulocyte Absolute 0.04 K/mm3 (0.00-0.031); Immature Granulocyte Percent A 0.5 % (0-0.5); Lymphocytes Percent Auto 25.1 % (18.3-44.2); Mean Corpuscular HGB Conc 31.2 g/dl (32-36); Mean Corpuscular Hemoglobin 31.3 pg (26-34); Mean Corpuscular Volume 100.5 fl (80-100); Mean Platelet Volume 12.2 fl (7.4-10.4); Monocytes Absolute Auto 0.7 K/mm3 (0.1-0.6); Monocytes Percent Auto 9.4 % (2.6-8.5); Neutrophils Absolute Auto 4.9 K/mm3 (1.3-6.7); Neutrophils Percent Auto 64.7 % (45.5-73.1); Platelet Count Result 181 k/mm3 (150-375); Red Blood Count 4.18 M/mm3 (4.2-5.4); Red Cell Distribution Width 13.4 % (11.5-14.5); White Blood Count 7.6 K/mm3 (4.5-10.0)
[2023-12-18 10:23] LABS: Alanine Aminotransferase 14 U/L (6-35); Albumin Level 2.9 g/dL (3.5-5.1); Alkaline Phosphatase 62 U/L (38-126); Anion Gap 4 mmol/L (8-16); Aspartate Amino Transferase 18 U/L (14-36); Bilirubin,Total 0.3 mg/dL (0.2-1.3); Blood Urea Nitrogen 27 mg/dL (7-17); Calcium 8.6 mg/dL (8.4-10.2); Carbon Dioxide 27 mmol/L (22-30); Chloride 111 mmol/L (98-107); Estimated CRCL calculation 40 ml/min; Estimated Glomerular Filt Rate > 60; Glucose 87 mg/dL (65-110); Potassium 3.8 mmol/L (3.4-5.0); Sodium 142 mmol/L (137-145)
[2023-12-18] MEDS: MIRTAZAPINE 15 MG TABLET PO (21:47)
[2023-12-18] MEDS: REMDESIVIR 100 MG/NS 250 ML 100 MG/250 ML BAG 250 MG IVPB (21:47)
[2023-12-18] MEDS: risperiDONE 0.25 MG TABLET PO (21:47)
[2023-12-18] MEDS: ALPRAZolam (*CRX) 0.5 MG TABLET 2 MG PO (21:47)
[2023-12-19 06:00] VITALS: BP 131/62; PULSE 71; RESP 18; TEMP 36.8; O2SAT 89
[2023-12-19] MEDS: LEVOTHYROXINE SODIUM 100 MCG TABLET PO (06:23)
[2023-12-19] MEDS: SODIUM CHLORIDE 0.9% IV 1,000 ML 100 ML IV CONT (06:23)
[2023-12-19] MEDS: DOXYCYCLINE 100 MG/NS 100 ML 100 MG/100 ML BAG IVPB ×2 (06:24→16:58)
--- NOTE | 2023-12-19 08:52 | PC.NURSE ---
Patient only oriented to person and being verbally abusive to staff and non compliant with redirection, questions, and medications. Will reevaluate again once RN sees other patient's on her assignment.
--- NOTE | 2023-12-19 11:10 | PC.NURSE ---
Patient more compliant and willing to take AM medications.
[2023-12-19 11:18] VITALS: BP 149/60; PULSE 55
[2023-12-19] MEDS: PREGABALIN (*CRX) 50 MG CAPSULE 100 MG PO ×2 (11:18→16:58)
[2023-12-19] MEDS: DULoxetine HCL 30 MG CAPSULE.DR PO (11:18)
[2023-12-19] MEDS: atenoloL 50 MG TABLET 100 MG PO (11:18)
[2023-12-19] MEDS: LOSARTAN POTASSIUM 100 MG TABLET BY MOUTH (11:18)
[2023-12-19] MEDS: hydroCHLOROthiazide 12.5 MG CAPSULE PO (11:18)
[2023-12-19 14:00] VITALS: BP 150/80; PULSE 65; RESP 14; TEMP 36.6; O2SAT 91
--- NOTE | 2023-12-19 14:50 | P.PNIM_ITS ---
Progress Note: A&P Assessment and Plan (1) Acute hypoxic respiratory failure: Code(s): J96.01 - Acute respiratory failure with hypoxia Status: Acute Assessment and Plan: 12/17/23: * Patient was found to be hypoxic on arrival requiring 2 L nasal cannula * She was found to have COVID on her respiratory panel * Chest x-ray is showing pneumonia * Patient was started on doxycycline and Rocephin for bacterial coverage and also dexamethasone and remdesivir for viral coverage * Continue to wean O2 for sat greater than 92 * Continue nebulized breathing treatments * Troponins negative * D-dimer 1.42 * CTA of the chest was negative for PE 12/18/23: * No change to current treatment plan 12/19/23: * Likely de-escalate antibiotics to oral tomorrow this is currently therapy * Continue with the rest the treatment plan (2) COVID-19: Code(s): U07.1 - COVID-19 Status: Acute Assessment and Plan: See above (3) Opacity of lung on imaging study: Code(s): R91.8 - Other nonspecific abnormal finding of lung field Status: Acute Assessment and Plan: 12/17/23: * Chest x-ray showing pneumonia * Currently covered with doxycycline and Rocephin for bacterial coverage, remdesivir and dexamethasone for viral coverage 12/18/23: * No change to current treatment plan (4) Hypothyroidism: Code(s): E03.9 - Hypothyroidism, unspecified Status: Acute Assessment and Plan: 12/17/23: * Restarted Synthroid * Will check TSH in the morning 12/18/23: * No change to current treatment plan (5) HTN (hypertension): Code(s): I10 - Essential (primary) hypertension Status: Acute Assessment and Plan: 12/17/23: * Blood pressure ranging 104/47 to 126/56 * Restarted losartan, hydrochlorothiazide, and atenolol 12/18/23: * no change to current treatment plan (6) Elevated d-dimer: Code(s): R79.89 - Other specified abnormal findings of blood chemistry Status: Acute Assessment and Plan: 12/17/23: * D-dimer 1.42 * CT of the chest was negative for PE 12/18/23: * no change Time Spent With Patient Time with patient: 15 - 25 minutes Subjective Date/time seen: 12/19/23 14:50 Interval history: 12/17/23: This is an 83 year old female who presented to the hospital today with complaint of SOB from [facility]. She was found to be hypoxic requiring 2L NC. Most of her history was obtained from EMR as the patient is not able to contribute her history due to her mental status. Work up in hospital included CXR showing airspace opacities in the lower lung zones consistent with pneumonia vrs atelectasis., emphysema also noted. Chest CTA was obtained which was negative for PE, shown probable bibasilar atelectasis right worse than left. EKG showing sinus bradycardia, 1st degree AVB. Labs revealed D-dimer of 1.42, pH 7.343, po2 62.5, BUN 29, Creatinine 1.20, eGFR 43, Ca+ 8.3, Troponin negative x3, CRP 3.6, BNP 387. CBC essentially unremarkable. Respiratory panel positive for COVID. Blood cultures obtained and are pending. She was given 1.5L NS, started on dexamethasone, remdesivir, doxycycline, and Rocephin. On examination today patient is alert to voice and oriented x1, minimally interactive today. Patient currently on 2.5 L nasal cannula, vital signs are stable, she is currently afebrile. 12/18/23: On examination today patient is alert and oriented x1, lying in bed. She was crying and stating she was scared while in the room when I entered. I tried to reorient her but she imme
--- NOTE | 2023-12-19 14:50 | PM.IMPN ---
Progress Note: A&P Assessment and Plan (1) Acute hypoxic respiratory failure: Code(s): J96.01 - Acute respiratory failure with hypoxia Status: Acute Assessment and Plan: 12/17/23: Patient was found to be hypoxic on arrival requiring 2 L nasal cannula She was found to have COVID on her respiratory panel Chest x-ray is showing pneumonia Patient was started on doxycycline and Rocephin for bacterial coverage and also dexamethasone and remdesivir for viral coverage Continue to wean O2 for sat greater than 92 Continue nebulized breathing treatments Troponins negative D-dimer 1.42 CTA of the chest was negative for PE 12/18/23: No change to current treatment plan 12/19/23: Likely de-escalate antibiotics to oral tomorrow this is currently therapy Continue with the rest the treatment plan (2) COVID-19: Code(s): U07.1 - COVID-19 Status: Acute Assessment and Plan: See above (3) Opacity of lung on imaging study: Code(s): R91.8 - Other nonspecific abnormal finding of lung field Status: Acute Assessment and Plan: 12/17/23: Chest x-ray showing pneumonia Currently covered with doxycycline and Rocephin for bacterial coverage, remdesivir and dexamethasone for viral coverage 12/18/23: No change to current treatment plan (4) Hypothyroidism: Code(s): E03.9 - Hypothyroidism, unspecified Status: Acute Assessment and Plan: 12/17/23: Restarted Synthroid Will check TSH in the morning 12/18/23: No change to current treatment plan (5) HTN (hypertension): Code(s): I10 - Essential (primary) hypertension Status: Acute Assessment and Plan: 12/17/23: Blood pressure ranging 104/47 to 126/56 Restarted losartan, hydrochlorothiazide, and atenolol 12/18/23: no change to current treatment plan (6) Elevated d-dimer: Code(s): R79.89 - Other specified abnormal findings of blood chemistry Status: Acute Assessment and Plan: 12/17/23: D-dimer 1.42 CT of the chest was negative for PE 12/18/23: no change Time Spent With Patient Time with patient: 15 - 25 minutes Subjective Date/time seen: 12/19/23 14:50 Interval history: 12/17/23: This is an 83 year old female who presented to the hospital today with complaint of SOB from [facility]. She was found to be hypoxic requiring 2L NC. Most of her history was obtained from EMR as the patient is not able to contribute her history due to her mental status. Work up in hospital included CXR showing airspace opacities in the lower lung zones consistent with pneumonia vrs atelectasis., emphysema also noted. Chest CTA was obtained which was negative for PE, shown probable bibasilar atelectasis right worse than left. EKG showing sinus bradycardia, 1st degree AVB. Labs revealed D-dimer of 1.42, pH 7.343, po2 62.5, BUN 29, Creatinine 1.20, eGFR 43, Ca+ 8.3, Troponin negative x3, CRP 3.6, BNP 387. CBC essentially unremarkable. Respiratory panel positive for COVID. Blood cultures obtained and are pending. She was given 1.5L NS, started on dexamethasone, remdesivir, doxycycline, and Rocephin. On examination today patient is alert to voice and oriented x1, minimally interactive today. Patient currently on 2.5 L nasal cannula, vital signs are stable, she is currently afebrile. 12/18/23: On examination today patient is alert and oriented x1, lying in bed. She was crying and stating she was scared while in the room when I entered. I tried to reorient her but she immediately forgets where she is. She is currently on room air at this time. Labs today were essentially unremarkable. 12/19/23: On examination today patient alert to voice and oriented x1, lying in the bed. She denies any new complaints today. Vital signs are stable, she is afebrile, she is currently on room air. Will continue with remdesivir and dexamethasone, doxycycline and Rocephin for bacterial coverage. We might be ab
[2023-12-19 20:29] VITALS: BP 140/60; PULSE 62; RESP 18; TEMP 36.2; O2SAT 95
[2023-12-19] MEDS: MIRTAZAPINE 15 MG TABLET PO (20:52)
[2023-12-19] MEDS: risperiDONE 0.25 MG TABLET PO (20:52)
[2023-12-19] MEDS: ALPRAZolam (*CRX) 0.5 MG TABLET 2 MG PO (20:52)
--- NOTE | 2023-12-19 23:42 | P.PNCROSS_ITS ---
Event Note Event Note Event Note: Patient lost IV access for 4th time and she is refusing further IV attempts. R emdesivir on hold, doxycycline changed to oral and dexamethasone changed to oral. Day Hospitalist to determine if patient needs to continue IV medications and midline vs change Rocephin to oral and DC remdesivir.
[2023-12-20 05:30] VITALS: BP 137/60; PULSE 53; RESP 16; TEMP 36.6; O2SAT 88
[2023-12-20] MEDS: LEVOTHYROXINE SODIUM 100 MCG TABLET PO (05:42)
[2023-12-20 06:27] LABS: Basophils Absolute Auto 0.1 K/mm3 (0.0-0.1); Basophils Percent Auto 0.8 % (0.2-1.2); Eosinophils Percent Auto 0.1 % (0-4.4); Hematocrit 45.2 % (37.0-47.0); Hemoglobin 14.1 g/dL (12.0-15.0); Immature Granulocyte Absolute 0.17 K/mm3 (0.00-0.031); Lymphocytes Absolute Auto 2.94 K/mm3 (0.9-3.2); Lymphocytes Percent Auto 33.8 % (18.3-44.2); Mean Corpuscular HGB Conc 31.2 g/dl (32-36); Mean Corpuscular Hemoglobin 31.4 pg (26-34); Mean Corpuscular Volume 100.7 fl (80-100); Mean Platelet Volume 11.7 fl (7.4-10.4); Monocytes Percent Auto 11.2 % (2.6-8.5); Neutrophils Absolute Auto 4.5 K/mm3 (1.3-6.7); Neutrophils Percent Auto 52.1 % (45.5-73.1); Platelet Count Result 231 k/mm3 (150-375); Red Blood Count 4.49 M/mm3 (4.2-5.4); Red Cell Distribution Width 13.5 % (11.5-14.5); White Blood Count 8.7 K/mm3 (4.5-10.0)
[2023-12-20 06:34] LABS: Alanine Aminotransferase 13 U/L (6-35); Albumin Level 2.9 g/dL (3.5-5.1); Alkaline Phosphatase 59 U/L (38-126); Anion Gap 7 mmol/L (8-16); Aspartate Amino Transferase 20 U/L (14-36); Bilirubin,Total 0.6 mg/dL (0.2-1.3); Blood Urea Nitrogen 28 mg/dL (7-17); Calcium 8.9 mg/dL (8.4-10.2); Carbon Dioxide 21 mmol/L (22-30); Chloride 113 mmol/L (98-107); Estimated CRCL calculation 40 ml/min; Estimated Glomerular Filt Rate > 60; Glucose 88 mg/dL (65-110); Potassium 3.7 mmol/L (3.4-5.0); Sodium 141 mmol/L (137-145)
[2023-12-20] MEDS: hydroCHLOROthiazide 12.5 MG CAPSULE PO (09:29)
[2023-12-20 09:30] VITALS: PULSE 60
[2023-12-20] MEDS: DOXYCYCLINE HYCLATE 100 MG TABLET PO (09:30)
[2023-12-20] MEDS: atenoloL 50 MG TABLET 100 MG PO (09:30)
[2023-12-20] MEDS: DULoxetine HCL 30 MG CAPSULE.DR PO (09:31)
[2023-12-20] MEDS: DEXAMETHASONE 2 MG TABLET 6 MG PO (09:31)
[2023-12-20] MEDS: ENOXAPARIN 40 MG/0.4 ML SYRINGE SUB-Q (09:31)
[2023-12-20] MEDS: LOSARTAN POTASSIUM 100 MG TABLET BY MOUTH (09:31)
[2023-12-20] MEDS: PREGABALIN (*CRX) 50 MG CAPSULE 100 MG PO ×2 (09:31→16:53)
[2023-12-20 09:50] VITALS: RESP 16; O2SAT 91
[2023-12-20] MEDS: SODIUM CHLORIDE 0.9% IV 1,000 ML 100 ML IV CONT (10:01)
[2023-12-20 14:00] VITALS: BP 146/67; PULSE 62; RESP 20; TEMP 35.6; O2SAT 91
--- NOTE | 2023-12-20 14:10 | PM.DS ---
DS: Admitting Diagnosis Discharge Date 12/20/23 Admitting Diagnosis Acute hypoxic respiratory failure COVID-19 DS: Discharge Diagnosis Discharge Diagnosis (1) Acute hypoxic respiratory failure: Code(s): J96.01 - Acute respiratory failure with hypoxia Status: Acute (2) COVID-19: Code(s): U07.1 - COVID-19 Status: Acute (3) Opacity of lung on imaging study: Code(s): R91.8 - Other nonspecific abnormal finding of lung field Status: Acute (4) Hypothyroidism: Code(s): E03.9 - Hypothyroidism, unspecified Status: Acute (5) HTN (hypertension): Code(s): I10 - Essential (primary) hypertension Status: Acute (6) Elevated d-dimer: Code(s): R79.89 - Other specified abnormal findings of blood chemistry Status: Acute DS: Summary Hospital Course Reason for hospitalization: Acute hypoxic respiratory failure Community-acquired Pneumonia COVID-19 Hospital Course: Interval history: 12/17/23: This is an 83 year old female who presented to the hospital today with complaint of SOB from [facility]. She was found to be hypoxic requiring 2L NC.? Most of her history was obtained from EMR as the patient is not able to contribute her history due to her mental status.? Work up in hospital included CXR showing airspace opacities in the lower lung zones consistent with pneumonia vrs atelectasis., emphysema also noted. Chest CTA was obtained which was negative for PE, shown probable bibasilar atelectasis right worse than left. EKG showing sinus bradycardia, 1st degree AVB. Labs revealed D-dimer of 1.42, pH 7.343, po2 62.5, BUN 29, Creatinine 1.20, eGFR 43, Ca+ 8.3, Troponin negative x3, CRP 3.6, BNP 387. CBC essentially unremarkable. Respiratory panel positive for COVID. Blood cultures obtained and are pending. She was given 1.5L NS, started on dexamethasone, remdesivir, doxycycline, and Rocephin.? On examination today patient is alert to voice and oriented x1, minimally interactive today.? Patient currently on 2.5 L nasal cannula, vital signs are stable, she is currently afebrile. 12/18/23: On examination today patient is alert and oriented x1, lying in bed. She was crying and stating she was scared while in the room when I entered. I tried to reorient her but she immediately forgets where she is. She is currently on room air at this time. Labs today were essentially unremarkable. 12/19/23: On examination today patient alert to voice and oriented x1, lying in the bed.? She denies any new complaints today.? Vital signs are stable, she is afebrile, she is currently on room air.? Will continue with remdesivir and dexamethasone, doxycycline and Rocephin for bacterial coverage.? We might be able to deescalate her antibiotics tomorrow and start discharge planning. 12/20/23: Patient has no new complaints today. Vital signs are stable she is afebrile, on room air. She finished 3 days of Remdesivir and Dexamethasone. She has also been on Rocephin and Doxycycline for bacterial coverage of her pneumonia. We will transition today to oral. Labs today are essentially unremarkable. She is stable for discharge back to her nursing facility. She will need to follow up with PCP in 1 week. Final diagnosis: Acute hypoxic respiratory failure due to Community acquired pneumonia, COVID-19 Status at Discharge Cognitive/behavioral status at discharge: Alert oriented x1 Functional status at discharge: bed bound Overall status at discharge: patient is progressing back to baseline Time Spent with Patient Time attestation: Total time spent providing and/or coordinating discharge services: Time spent: Greater than 30 minutes Exam Narrative: General: In no acute distress, appears frail and weak Head: atraumatic, no encephalopathy Eyes: EOMI, PERRLA, sclera clear ENT: moist mucous membranes, nasal passages clear Neck: supple, no JVD, no adenopathy, trachea midline Cardiac: Normal S1 and S2. No murmur, linares
[2023-12-20 20:00] VITALS: BP 134/64; PULSE 62; RESP 20; TEMP 36.2; O2SAT 93
--- NOTE | 2023-12-20 22:00 | PC.NURSE ---
Patient discharge to facility, report given
== END 2023-12-20 21:00 | DRG 177 ==
LOC: ANHED 12-17 02:52 → ANHIMU 12-17 04:21 → ANH3MEDSUR 12-17 06:46
PROVIDERS: Emergency Medicine; Admitting Provider Student in an Organized Health Care Education/Training Program; Emergency Provider Physician Assistant; PCP Physician Assistant; Visit Provider Nurse Practitioner Acute Care
DX: U07.1 COVID-19 (principal); J18.9 Pneumonia, unspecified organism; J96.01 Acute respiratory failure with hypoxia; J44.0 Chronic obstructive pulmonary disease with (acute) lower respiratory infection; I12.9 Hypertensive chronic kidney disease with stage 1 through stage 4 chronic kidney disease, or unspecified chronic kidney disease; N18.9 Chronic kidney disease, unspecified; E03.9 Hypothyroidism, unspecified; R79.89 Other specified abnormal findings of blood chemistry
CPT/HCPCS: 36415; 36600; 71045; 71275; 80048; 80053; 82375; 82728; 82805; 83050; 83605; 83615; 83735; 83880; 84484; 85025; 85380; 85610; 85652; 85730; 86140; 87040; 87637; 93005; 96361; 96365; 96366; 96367; 96375; 99285; A9270; G0378; J0248; J0696; J1100; J1650; J7030; J7040; J8540; Q9967

== ENCOUNTER 2023-12-30 12:33 | Inpatient (IN) | payer MEDICARE, SELFPAY ==
[2023-12-30] VITALS (16 sets, daily range): BP systolic 69–117; BP diastolic 52–94; PULSE 47–55; RESP 12–16; TEMP 36.4; O2SAT 94–100; BMI 21.3
--- NOTE | ~2023-12-30 | XR_ITS ---
EXAMINATION: XR chest PICC line INDICATION: PICC position assessment TECHNIQUE: Portable AP chest at 1310 hours COMPARISON: 1302 hours FINDINGS: The tip of the left upper extremity PICC projects in the proximal superior vena cava. There is mild atelectasis of the lung bases. No pleural effusion or pneumothorax. The cardiomediastinal si lhouette is normal. IMPRESSION: 1. Left upper extremity PICC in the proximal superior vena cava. Reviewed, dictated and finalized at location B. ICE LEARNING COORDINATOR
--- NOTE | ~2023-12-30 | XR_ITS ---
EXAMINATION: XR chest 1V portable INDICATION: Pneumonia TECHNIQUE: Portable AP chest at 1411 hours COMPARISON: 12/16/2023 FINDINGS: There are persistent but improved airspace opacities of the right mid and lower lung zones. No new airspace opacities are identified. No pleural effusion or pneumothorax. The cardiomediastinal silhouette is normal. IMPRESSION: 1. Persistent but improved airspace opacities of the right mid and lower lung zones, consistent with pneumonia. Reviewed, dictated and finalized at location L. ICS TECHNICAL OFFICER IMPRESSION: 1. Persistent but improved airspace opacities of the right mid and lower lung z ones, consistent with pneumonia.
--- NOTE | ~2023-12-30 | US_ITS ---
EXAMINATION: US venous doppler [facility] DATE: 01/03/2024 16:05 INDICATION: Acute pulmonary emboli. TECHNIQUE: Grayscale ultrasound images without and with compression and Doppler ultrasound images of the bilateral lower extremity veins were obtained. COMPARISON: None. FINDINGS: The visualized portions of right common femoral vein, profunda (deep) femoral vein, femoral vein, pop liteal vein, peroneal veins, posterior tibial veins, and greater saphenous vein outflow are patent. The visualized portions of left common femoral vein, profunda femoral vein, femoral vein, popliteal v ein, peroneal veins, posterior tibial veins, and greater saphenous vein outflow are patent. IMPRESSION: 1. No deep venous thrombosis. Reviewed, dictated and finalized at location A. SMISSION REPAIRER
--- NOTE | ~2023-12-30 | CT_ITS ---
EXAMINATION:CT diagnostic chest wo con DATE: 12/30/2023 15:32 INDICATION: Hypoxia. Leukocytosis. TECHNIQUE: Computed tomography (CT) of the chest was performed without intravenous contrast. Automate d exposure control and iterative reconstruction technique were employed. The dose-length product (DLP ) was 205.89 mGy-cm. COMPARISON: Chest CT 12/17/2023 FINDINGS: There is mild scarring at the lung apices. There is mild emphysema. There are airspace opac ities in right lower lobe with volume loss, likely atelectasis. There is mild atelectasis in the lowe r lobes. No pleural effusion. The heart size is normal. There are coronary artery calcifications. No pericardial effusion. Aortic atherosclerosis is noted. There are changes of cholecystectomy. The comm on duct is dilated to 18 mm, increased from 13 mm on 09/13/2021, likely not clinically significant gi krishan the normal alkaline phosphatase and total bilirubin. There are cysts in right kidney measuring up to 17 mm. There is severe cervical and lumbar spondylosis and mild thoracic spondylosis. There is a chronic compression fracture of T12. IMPRESSION: 1. Mild emphysema. 2. Atelectasis in the lungs, worst in right lower lobe. Reviewed, dictated and finalized at location E. ER OPERATOR
--- NOTE | ~2023-12-30 | CT_ITS ---
EXAMINATION: CTA chest PE protocol DATE: 01/02/2024 13:22 INDICATION: Hypoxia. TECHNIQUE: Computed tomography angiography (CTA) of the chest was performed with 100 mL Omnipaque-350 intravenous contrast timed to evaluate the pulmonary arteries. Coronal maximum intensity projection 3D-reconstructions were created by the technologist. Automated exposure control and iterative reconst ruction technique were employed. The dose-length product was 435.59 mGy-cm. COMPARISON: Chest CT 12/30/2023 FINDINGS: There is mild emphysema. There is mild scarring at the lung apices. There are airspace opac ities with volume loss involving the lower lobes, right middle lobe, and lingula, likely atelectasis. No pleural effusion. The heart size is normal. There are coronary artery calcifications. No pericard ial effusion. There is a pulmonary embolus in left upper lobe. There is a pulmonary embolus in right lower lobe. There are changes of cholecystectomy. Aortic atherosclerosis is noted. A left upper extre mity peripherally inserted central venous catheter (PICC) is seen with tip in the left brachiocephali c vein. There is a 17 mm cyst in right kidney. There is severe cervical spondylosis and moderate thor acic spondylosis. There is a chronic compression fracture of T12. IMPRESSION: 1. Acute pulmonary emboli in left upper lobe and right lower lobe. I called this result to Isabel jimenez. 2. Mild emphysema. Reviewed, dictated and finalized at location A. AL COORDINATOR IMPRESSION: 1. Acute pulmonary emboli in left upper lobe and right lower lobe. I called thi s result to Isabel Ramirez. 2. Mild emphysema.
--- NOTE | ~2023-12-30 | XR_ITS ---
EXAMINATION: XR chest PICC line INDICATION: PICC insertion TECHNIQUE: Portable AP chest at 1302 hours COMPARISON: None available FINDINGS: A left upper extremity PICC has been inserted. The tip is curved, ending either in the prox imal superior vena cava or azygos vein. There is mild atelectasis of the lung bases. No pleural effus ion or pneumothorax. The cardiomediastinal silhouette is normal. IMPRESSION: 1. Left upper extremity PICC ending in the proximal superior vena cava or azygos vein. Reviewed, dictated and finalized at location B. ACE ROOM SHOP OPTICIAN IMPRESSION: 1. Left upper extremity PICC ending in the proximal superior vena cava or azygo s vein.
--- NOTE | 2023-12-30 12:54 | ECG_ITS ---
Measurements Intervals [place] Rate: 47 P: 62 NC: 211 QRS: 25 QRSD: 101 T: 92 QT: 455 QTc: 405 Interpretive Statements SINUS BRADYCARDIA WITH FIRST DEGREE AV BLOCK SEPTAL MYOCARDIAL INFARCTION , PROBABLY OLD [40+ ms Q WAVE IN V1/V2] COMPARED TO ECG 12/17/2023 01:10:32 NO SIGNIFICANT CHANGES Electronically Signed On 12-30-2023 15:04:03 [employer]TER OPERATOR by Radha Nicholson M.D.
[2023-12-30 13:14] LABS: Alanine Aminotransferase 20 U/L (6-35); Albumin Level 3.3 g/dL (3.5-5.1); Alkaline Phosphatase 120 U/L (38-126); Anion Gap 11 mmol/L (8-16); Aspartate Amino Transferase 37 U/L (14-36); Bilirubin,Total 0.9 mg/dL (0.2-1.3); Blood Urea Nitrogen 67 mg/dL (7-17); Calcium 8.9 mg/dL (8.4-10.2); Carbon Dioxide 19 mmol/L (22-30); Chloride 111 mmol/L (98-107); Estimated CRCL calculation 13 ml/min; Estimated Glomerular Filt Rate 16; Glucose 106 mg/dL (65-110); Potassium 3.8 mmol/L (3.4-5.0); Sodium 141 mmol/L (137-145)
[2023-12-30 14:05] LABS: Appearance Urine Cloudy (Clear); Bacteria Urine None Seen /hpf; Bilirubin Urine Negative (Negative); Blood Urine 1+ (Negative); Budding Yeast Urine Present /hpf; Color Urine Yellow (Yellow); Glucose Urine UA Negative (Negative); Ketones Urine Negative (Negative); Leukocyte Esterase Ur 2+ LEU/UL (Negative); Need Manual Microscopic Reviewed; Nitrate Urine Negative (Negative); Protein Urine 1+ mg/dL (Negative); Specific Grav Ur 1.017 (1.001-1.035); Squamous Epithelial Cell Urine Occasional /hpf (Few); Urobilinogen Urine 0.2 mg/dL (<2.0); WBC Urine >100 /hpf; pH Urine 5.5 (5.0-9.0)
[2023-12-30 14:12] LABS: Add Urine Microscopic? YES
[2023-12-30 14:21] LABS: Basophils Absolute Auto 0.1 K/mm3 (0.0-0.1); Basophils Percent Auto 0.5 % (0.2-1.2); Eosinophils Absolute Auto 0.1 K/mm3 (0-0.3); Eosinophils Percent Auto 0.9 % (0-4.4); Hematocrit 50.3 % (37.0-47.0); Hemoglobin 15.7 g/dL (12.0-15.0); Immature Granulocyte Absolute 0.06 K/mm3 (0.00-0.031); Immature Granulocyte Percent A 0.4 % (0-0.5); Lymphocytes Absolute Auto 2.28 K/mm3 (0.9-3.2); Lymphocytes Percent Auto 15.1 % (18.3-44.2); Mean Corpuscular HGB Conc 31.2 g/dl (32-36); Mean Corpuscular Hemoglobin 31.2 pg (26-34); Mean Platelet Volume 12.8 fl (7.4-10.4); Monocytes Absolute Auto 1.2 K/mm3 (0.1-0.6); Monocytes Percent Auto 7.8 % (2.6-8.5); Neutrophils Absolute Auto 11.4 K/mm3 (1.3-6.7); Neutrophils Percent Auto 75.3 % (45.5-73.1); Platelet Count Result 179 k/mm3 (150-375); Red Blood Count 5.03 M/mm3 (4.2-5.4); Red Cell Distribution Width 14.5 % (11.5-14.5); White Blood Count 15.1 K/mm3 (4.5-10.0)
--- NOTE | 2023-12-30 14:44 | ED.GENADULT ---
HPI - General Adult General Chief complaint: Altered Mental Status <Dhiraj Kirkpatrick PA-C - Last Filed: 12/30/23 19:30> Stated complaint: AMS <Dhiraj Kirkpatrick PA-C - Last Filed: 12/30/23 19:30> Time Seen by Provider: 12/30/23 14:18 <Dhiraj Kirkpatrick PA-C - Last Filed: 12/30/23 19:30> Source: patient <Dhiraj Kirkpatrick PA-C - Last Filed: 12/30/23 19:30> Mode of arrival: ambulatory <FAISAL Gonzalez Last Filed: 12/30/23 19:30> Limitations: no limitations <Dhiraj Kirkpatrick PA-C - Last Filed: 12/30/23 19:30> History of Present Illness HPI narrative: this is a 83-year-old female who presents to the ED via EMS from [facility] with chief complaint of decreased mentation noted this morning by staff. She is normally alert and oriented x1, and seems to be the same on my exam. per chart review patient was recently COVID positive been seen here in the hospital. She was started on oxygen. <Dhiraj Kirkpatrick PA-C - Last Filed: 12/30/23 19:30> Related Data Home medications: Home Medications Medication Instructions Recorded Confirmed atenolol 100 mg tablet 100 mg PO DAILY 09/12/21 12/30/23 levothyroxine 100 mcg tablet 100 mcg PO DAILY 09/12/21 12/30/23 pregabalin 100 mg capsule 75 mg PO BID 09/12/21 12/30/23 alprazolam 2 mg tablet 2 mg PO HS 12/17/23 12/30/23 duloxetine 30 mg capsule,delayed 30 mg PO DAILY 12/17/23 12/30/23 release hydrochlorothiazide 12.5 mg capsule 12.5 mg PO DAILY 12/17/23 12/30/23 losartan 100 mg tablet 100 mg DAILY 12/17/23 12/30/23 mirtazapine 15 mg tablet 15 mg PO HS 12/17/23 12/30/23 risperidone 0.25 mg tablet 0.25 mg PO HS 12/17/23 12/30/23 albuterol sulfate 90 mcg/actuation 1 puff inhalation QID PRN 12/30/23 12/30/23 aerosol inhaler Shortness Of Breath <Dhiraj Kirkpatrick PA-C - Last Filed: 12/30/23 19:30> Allergies/adverse reactions: Allergies Allergy/AdvReac Type Severity Reaction Status Date / Time acetaminophen Allergy Unknown Verified 12/30/23 13:51 amlodipine [From Norvasc] Allergy Unknown Verified 12/30/23 13:51 ciprofloxacin Allergy Unknown Verified 12/30/23 13:51 ibuprofen Allergy Unknown Verified 12/30/23 13:51 lisinopril Allergy Unknown Verified 12/30/23 13:51 oxymorphone Allergy Unknown Verified 12/30/23 13:51 Penicillins Allergy Unknown Verified 12/30/23 13:51 Sulfa (Sulfonamide Allergy Unknown Verified 12/30/23 13:51 Antibiotics) sulfamethoxazole Allergy Unknown Verified 12/30/23 13:51 [From Sulfamethoxazole-Trimethoprim] trimethoprim Allergy Unknown Verified 12/30/23 13:51 [From Sulfamethoxazole-Trimethoprim] codeine sulfate Allergy Unknown Uncoded 12/17/23 10:38 hydrocodone compound Allergy Unknown Uncoded 12/17/23 10:38 hydrocodone-acetaminophen Allergy Unknown Uncoded 12/17/23 10:38 <Dhiraj Kirkpatrick PA-C - Last Filed: 12/30/23 19:30> Review of Systems Review of Systems: All systems as dictated in HPI <Dhiraj Kirkpatrick PA-C - Last Filed: 12/30/23 19:30> PMFSH Social History Social History: Social History Smoking status: Unknown if ever smoked Second hand tobacco smoke exposure: No Alcohol intake: never Substance use: never Substance use type: does not use Spiritual care concerns: No <Dhiraj Kirkpatrick PA-C - Last Filed: 12/30/23 19:30> Exam Narrative: GENERAL: Well-appearing, well-nourished, and in no acute distress. HEAD: Normocephalic, atraumatic. EYES: PERRLA and EOMI. ENT: Nares clear, no rhinorrhea or epistaxis. Mucous membranes moist. Oropharynx without tonsillar hypertrophy exudate or other lesions. NECK: Supple. No adenopathy or masses. CHEST: No respiratory distress. Clear to auscultation. No wheezes rales or rhonchi HEART: Regular rate and rhythm. No murmur heard. Normal peripheral pulses. ABDOMEN: Soft, nontender, nondistended, normal active bowel sounds. MSK: Normal range of motion. No afvio
[2023-12-30] MEDS: SODIUM CHLORIDE 0.9% IV 1,000 ML 999 ML IV CONT (15:39)
[2023-12-30] MEDS: AZITHROMYCIN 500 MG/NS 250 ML 500 MG/250 ML BAG 250 MG IVPB (18:08)
[2023-12-30] MEDS: LACTATED RINGERS 1,000 ML 125 ML IV CONT (18:10)
--- NOTE | 2023-12-30 19:44 | PC.NURSE ---
Spoke to Sanjay Mary pt son and POA who stated that she is a DNR, verified with Lisa Chau RN.
[2023-12-30] MEDS: CEFEPIME 1 GM/NS 50 ML 1 GM/50 ML BAG IVPB (20:10)
--- NOTE | 2023-12-30 23:41 | PC.NURSE ---
Deborah Garvin aware patient's IV infiltrated and unable to get another IV d/t patient being combative. Aware patient did not get cefepime IV.
[2023-12-31] VITALS (8 sets, daily range): BP systolic 106–115; BP diastolic 48–76; PULSE 52–91; RESP 16–20; TEMP 36.2–36.6; O2SAT 95–100
--- NOTE | 2023-12-31 00:02 | PM.IMHP ---
H&P: HPI History of Present Illness Date/Time: 12/30/23 23:45 Chief Complaint: Altered mental status. Narrative: This is an 83-year-old female with history of stroke, dementia, hypertension, hypothyroidism, and anxiety who presented to the emergency department via EMS from [facility] for evaluation of altered mental status. She is not the best historian majority of the following is obtained via a review of her EMR. Family members have not returned phone calls. She is known to the hospitalist service from a recent admission about 2 weeks ago at which time she was treated for acute respiratory failure with hypoxia due to COVID-19. She had no oxygen requirement on discharge however she has required oxygen since she has been back at her nursing facility. At baseline she is reportedly alert and oriented x1 however staff at her facility feel that she is more confused than usual and sent her in for evaluation today. She has not been cooperative with nursing staff in his and out several IVs though at the time my evaluation she is quite pleasant. She has no specific complaints but reports that she is just not feeling well. She denies headache, fever, chest pain, shortness a breath, abdominal pain vomiting, diarrhea, and dysuria. She is requesting a blanket and something to drink. In the ED: She was afebrile on arrival. Blood pressures have been running at the low end of normal but initially improved with IV fluids however she has since pulled out her IV. SpO2 is currently in the mid 90s on 4 L nasal cannula. Labs were significant for WBC count of 15.1, hemoglobin 15.7, BUN 67, creatinine 2.80. Chest CT showed mild emphysema and atelectasis in the lung zones, worse in the right lower lobe. She is being admitted in this setting with acute kidney injury presumably due to dehydration. Review of Systems Review of Systems: Review of systems was attempted but limited due to her underlying dementia. She stated no to every question asked of her. [facility] Past Medical History Medical History (Updated 12/31/23 @ 13:25 by Deborah Garvin PA-C) Anxiety Cerebrovascular accident Chronic obstructive pulmonary disease Dementia Hypothyroidism Paroxysmal atrial fibrillation Surgical History Surgical History (Updated 12/31/23 @ 13:25 by Deborah Garvin PA-C) Surgical history unknown Family History Family History (Updated 12/31/23 @ 13:25 by Deborah Garvin PA-C) Other Family history unknown Social History Social History (Updated 12/31/23 @ 13:25 by Deborah Garvin PA-C) Social History: Surrogate medical decision maker: Sanjay Mary, son. Code status: Do not resuscitate. Smoking status: Unknown if ever smoked Second hand tobacco smoke exposure: No Alcohol intake: never Substance use: never Substance use type: does not use Spiritual care concerns: No Meds Home Medications and Allergies Home Medications Medication Instructions Recorded Confirmed Type atenolol 100 mg tablet 100 mg PO DAILY 09/12/21 12/30/23 History levothyroxine 100 mcg tablet 100 mcg PO DAILY 09/12/21 12/30/23 History pregabalin 100 mg capsule 75 mg PO BID 09/12/21 12/30/23 History alprazolam 2 mg tablet 2 mg PO HS 12/17/23 12/30/23 History duloxetine 30 mg capsule,delayed 30 mg PO DAILY 12/17/23 12/30/23 History release hydrochlorothiazide 12.5 mg capsule 12.5 mg PO DAILY 12/17/23 12/30/23 History losartan 100 mg tablet 100 mg DAILY 12/17/23 12/30/23 History mirtazapine 15 mg tablet 15 mg PO HS 12/17/23 12/30/23 History risperidone 0.25 mg tablet 0.25 mg PO HS 12/17/23 12/30/23 History cefdinir 300 mg capsule 300 mg PO Q12H Pneumonia #10 caps 12/20/23 12/30/23 Rx doxycycline hyclate 100 mg tablet 100 mg PO Q12HR #10 tabs 12/20/23 12/30/23 Rx albuterol sulfate 90 mcg/actuation 1 puff inhalation QID PRN 12/30/23 12/30/23 History aerosol inhaler Shortness Of Breath Allergies Allergy/AdvReac Type Severity Reaction Status Db
[2023-12-31 06:14] LABS: Hematocrit 48.5 % (37.0-47.0); Mean Corpuscular HGB Conc 30.9 g/dl (32-36); Mean Corpuscular Hemoglobin 31.6 pg (26-34); Mean Corpuscular Volume 102.3 fl (80-100); Mean Platelet Volume 12.6 fl (7.4-10.4); Platelet Count Result 158 k/mm3 (150-375); Red Blood Count 4.74 M/mm3 (4.2-5.4); Red Cell Distribution Width 14.2 % (11.5-14.5); White Blood Count 16.3 K/mm3 (4.5-10.0)
[2023-12-31 08:37] LABS: D Dimer 1.58 ug/mL (<0.48)
[2023-12-31 08:38] LABS: Lactic Acid Reflex 1.8 mmol/L (0.7-2.0)
[2023-12-31] MEDS: IPRATROPIUM 0.5 MG/ALBUTEROL SULFATE 2.5 MG AMPUL.NEB 3 ML INHALATION (08:47)
[2023-12-31] MEDS: guaiFENesin 12 HR 600 MG TABCR PO ×2 (10:05→20:09)
[2023-12-31] MEDS: PREGABALIN (*CRX) 75 MG CAPSULE PO ×2 (10:05→18:06)
[2023-12-31] MEDS: LEVOTHYROXINE SODIUM 100 MCG TABLET PO (10:05)
[2023-12-31] MEDS: atenoloL 50 MG TABLET 100 MG PO (10:06)
[2023-12-31] MEDS: PANTOPRAZOLE 40 MG TABLET PO (10:06)
[2023-12-31] MEDS: DULoxetine HCL 30 MG CAPSULE.DR PO (10:06)
[2023-12-31] MEDS: AZITHROMYCIN 250 MG TABLET 500 MG PO (10:06)
[2023-12-31] MEDS: cefTRIAXone 2 GM/NS 100 ML 2 GM/100 ML BAG IVPB (10:22)
[2023-12-31] MEDS: AZITHROMYCIN 500 MG/NS 250 ML 500 MG/250 ML BAG 250 MG IVPB (11:08)
[2023-12-31] MEDS: LIDOCAINE HCL 1% PF INJ 5 ML VIAL INFILTRATE (12:15)
--- NOTE | 2023-12-31 12:29 | PM.IMPN ---
Progress Note: A&P Assessment and Plan (1) Acute kidney injury: Code(s): N17.9 - Acute kidney failure, unspecified Status: Acute (2) Acute hypoxic respiratory failure: Code(s): J96.01 - Acute respiratory failure with hypoxia Status: Acute (3) Altered mental status: Code(s): R41.82 - Altered mental status, unspecified Status: Acute (4) Dehydration: Code(s): E86.0 - Dehydration Status: Acute (5) Abnormal urinalysis: Code(s): R82.90 - Unspecified abnormal findings in urine Status: Acute Plan acute respiratory failure with hypoxia -requiring 4LNC supplemental oxygen to maintain oxygen saturation 92% - wean as tolerated - be secondary to long COVID versus bacterial pneumonia will treat for gram +/- -elevated DDIMER -CTA or V/Q to R/O PE pending F/I CMP metabolic encephalopathy -Secondary to UTI/Hypokia/ZAYDA/dehydration -Improving -IV fluids acute kidney injury prerenal -Secondary to dehydration - aggressive IV hydration. -nephrology consulted if no improvement -Avoid nephrotoxic drugs. -Routine CMP monitoring GFR. currently 16 -Monitor electrolytes especially potassium. -Antibiotic doses depending on creatinine clearance. -Pharmacy does medications. Pneumonia -Viral vs bacterial treat for possible gram +/- -Bronchodilators. -Chest x-ray shows improving from COVID -incentive spirometry while awake. -sputum culture -influenza/COVID negative -antibiotic therapy (if suspected staph cover with vancomycin until sputum culture negative) -supplemental oxygen therapy to maintain oxygen 92% -monitor for signs of in sepsis -blood cultures x2 -lactic acid -CMP/CBC daily UTI -Urine cultures and blood cultures -Continue IV hydration. -Monitor CBC, CMP watch for sepsis. -Monitor vital signs. - empiric antibiotics pending sensitivities. Code status: Full code per patient DVT prophylaxis: Heparin Stress ulcer prophylaxis: Protonix 40 daily PT/OT notes: PT/OT pending Disposition: patient admitted to the medical-surgical unit for further evaluation and treatment of acute respiratory failure with hypoxia will continue to treat for possible long COVID pneumonia versus bacterial pneumonia CTA versus V/Q scan pending to rule out PE, continue with IV hydration PT/OT pending will return to SNF when medically stable. Time Spent With Patient Time with patient: 25 - 35 minutes Subjective Date/time seen: 12/31/23 12:29 Interval history: Chief Complaint: Altered mental status Narrative: This is an 83-year-old female with dementia presented to the emergency department via EMS from [facility] for evaluation of altered mental status. She is not the best historian majority of the following is obtained via a review of her EMR. Family members have not returned phone calls. She is known to the hospitalist service from a recent admission nearly 2 weeks ago at which time she was treated for acute respiratory failure with hypoxia due to COVID-19. She had no oxygen requirement on discharge however she has required oxygen since she has been back at her nursing facility. At baseline she is reportedly alert and oriented x1 however staff feel that she is more confused than usual and sent her in for evaluation today. 12/31: Patient alert and oriented x 1 to 2 knows her name and date of . Poor historian but does remember she was recently hospitalized with COVID. patient still remains on 4 L supplemental oxygen to maintain oxygen saturation 92%. labs had difficulty getting patient has a follow-up CMP with renal function due to hemolyzed blood placed a PICC. D-dimer elevated some concern for possible PE, if ZAYDA has not resolved with IV fluids will get V/Q scan instead of CTA. patient reports she has not been very ambulatory at the SNF as well as not eating or drinking. Patient is discharged GFR was greater th
[2023-12-31] MEDS: CENTRAL LINE FLUSH 10 ML IV PUSH ×2 (14:00→21:31)
[2023-12-31 15:03] LABS: Anion Gap 8 mmol/L (8-16); Blood Urea Nitrogen 48 mg/dL (7-17); Calcium 7.9 mg/dL (8.4-10.2); Carbon Dioxide 19 mmol/L (22-30); Chloride 113 mmol/L (98-107); Estimated CRCL calculation 23 ml/min; Estimated Glomerular Filt Rate 33; Glucose 114 mg/dL (65-110); Magnesium 2.2 mg/dL (1.6-2.3); Potassium 3.3 mmol/L (3.4-5.0); Sodium 140 mmol/L (137-145)
--- NOTE | 2023-12-31 15:12 | PCPTNOTE ---
Attempted PT evaluation, pt adamantly refused stating she is not getting out of bed until someone can get her something for her pain. RN made aware.
[2023-12-31 15:24] LABS: Influenza A QL RT-PCR Negative (Negative); Influenza B QL RT-PCR Negative (Negative)
[2023-12-31 19:08] LABS: RSV RNA, RT-PCR Negative (Negative)
[2023-12-31] MEDS: ALPRAZolam (*CRX) 0.5 MG TABLET 2 MG PO (20:09)
[2023-12-31] MEDS: HEPARIN SODIUM 5,000 UNITS/ML VIAL 5000 UNITS SUB-Q (20:10)
[2023-12-31] MEDS: risperiDONE 0.25 MG TABLET PO (20:10)
[2023-12-31] MEDS: MIRTAZAPINE 15 MG TABLET PO (20:10)
[2023-12-31] MEDS: LACTATED RINGERS 1,000 ML 125 ML IV CONT (21:30)
[2024-01-01] VITALS (9 sets, daily range): BP systolic 113–141; BP diastolic 41–76; PULSE 60–91; RESP 16–19; TEMP 36.4–36.5; O2SAT 96–100
[2024-01-01 04:56] LABS: Basophils Absolute Auto 0.1 K/mm3 (0.0-0.1); Basophils Percent Auto 0.5 % (0.2-1.2); Eosinophils Absolute Auto 0.2 K/mm3 (0-0.3); Eosinophils Percent Auto 2.4 % (0-4.4); Hematocrit 37.5 % (37.0-47.0); Hemoglobin 12.1 g/dL (12.0-15.0); Immature Granulocyte Absolute 0.06 K/mm3 (0.00-0.031); Immature Granulocyte Percent A 0.6 % (0-0.5); Lymphocytes Absolute Auto 1.17 K/mm3 (0.9-3.2); Mean Corpuscular HGB Conc 32.3 g/dl (32-36); Mean Corpuscular Hemoglobin 31.5 pg (26-34); Mean Corpuscular Volume 97.7 fl (80-100); Mean Platelet Volume 12.7 fl (7.4-10.4); Monocytes Absolute Auto 0.9 K/mm3 (0.1-0.6); Monocytes Percent Auto 9.5 % (2.6-8.5); Neutrophils Absolute Auto 7.3 K/mm3 (1.3-6.7); Platelet Count Result 121 k/mm3 (150-375); Red Blood Count 3.84 M/mm3 (4.2-5.4); Red Cell Distribution Width 14.2 % (11.5-14.5); White Blood Count 9.7 K/mm3 (4.5-10.0)
[2024-01-01 05:11] LABS: Alanine Aminotransferase 14 U/L (6-35); Albumin Level 2.1 g/dL (3.5-5.1); Alkaline Phosphatase 98 U/L (38-126); Anion Gap 2 mmol/L (8-16); Aspartate Amino Transferase 27 U/L (14-36); Bilirubin,Total 0.5 mg/dL (0.2-1.3); Blood Urea Nitrogen 40 mg/dL (7-17); Calcium 7.8 mg/dL (8.4-10.2); Carbon Dioxide 22 mmol/L (22-30); Chloride 114 mmol/L (98-107); Estimated CRCL calculation 28 ml/min; Estimated Glomerular Filt Rate 43; Glucose 77 mg/dL (65-110); Potassium 3.2 mmol/L (3.4-5.0); Sodium 138 mmol/L (137-145)
[2024-01-01] MEDS: LACTATED RINGERS 1,000 ML 125 ML IV CONT (05:35)
[2024-01-01] MEDS: CENTRAL LINE FLUSH 10 ML IV PUSH ×3 (05:36→22:00)
[2024-01-01] MEDS: cefTRIAXone 2 GM/NS 100 ML 2 GM/100 ML BAG IVPB (08:03)
[2024-01-01] MEDS: IPRATROPIUM 0.5 MG/ALBUTEROL SULFATE 2.5 MG AMPUL.NEB 3 ML INHALATION ×2 (09:04→20:24)
[2024-01-01] MEDS: guaiFENesin 12 HR 600 MG TABCR PO ×2 (10:22→20:28)
[2024-01-01] MEDS: HEPARIN SODIUM 5,000 UNITS/ML VIAL 5000 UNITS SUB-Q (10:22)
[2024-01-01] MEDS: KCL 40 MEQ/WATER 100 ML 100 ML 25 ML IVPB (10:35)
--- NOTE | 2024-01-01 10:47 | PM.IMPN ---
Progress Note: A&P Assessment and Plan (1) Acute kidney injury: Code(s): N17.9 - Acute kidney failure, unspecified Status: Acute (2) Acute hypoxic respiratory failure: Code(s): J96.01 - Acute respiratory failure with hypoxia Status: Acute (3) Altered mental status: Code(s): R41.82 - Altered mental status, unspecified Status: Acute (4) Dehydration: Code(s): E86.0 - Dehydration Status: Acute (5) Abnormal urinalysis: Code(s): R82.90 - Unspecified abnormal findings in urine Status: Acute (6) HTN (hypertension): Code(s): I10 - Essential (primary) hypertension Status: Acute Plan ?acute respiratory failure with hypoxia -requiring 4LNC?POA supplemental oxygen to maintain oxygen saturation 92% - wean as tolerated down to 3L - be secondary to long COVID versus bacterial pneumonia will treat for gram +/- -elevated DDIMER -CTA to R/O PE ?metabolic encephalopathy-RESOLVED -Secondary to UTI/Hypokia/ZAYDA/dehydration -Improving -IV fluids ?acute kidney injury prerenal-Improving -Secondary to? dehydration ?- aggressive IV hydration.? -nephrology consulted? if no improvement -Avoid nephrotoxic drugs. ? -Routine CMP monitoring GFR. currently 16? -Monitor electrolytes especially potassium.? -Antibiotic doses depending on creatinine clearance.? -Pharmacy does medications.? ?Pneumonia -Viral vs bacterial treat for possible gram +/- -Swallow evaluation ?-Bronchodilators.? -Chest x-ray shows improving? from COVID -incentive spirometry while awake.? -sputum culture -influenza/COVID negative -antibiotic therapy (if suspected staph cover with vancomycin until sputum culture negative) -supplemental oxygen therapy to maintain oxygen 92% -monitor for signs of in sepsis -blood cultures x2 -lactic acid -CMP/CBC daily ? UTI-RULED OUT ?-Urine cultures and blood cultures -Continue IV hydration.? -Monitor CBC, CMP watch for sepsis.? -Monitor vital signs.? - empiric antibiotics pending sensitivities.? ?Code status:? Full code per patient DVT prophylaxis:? Heparin Stress ulcer prophylaxis:? Protonix 40 daily PT/OT notes:? PT/OT pending Disposition: ? patient admitted to the medical-surgical unit for further evaluation and treatment of acute respiratory failure with hypoxia will continue to treat for possible long COVID pneumonia versus bacterial pneumonia CTA pending to rule out PE,? continue with IV hydration PT/OT pending will return to SNF when medically stable. -Patient's previous records reviewed on admission -ER notes reviewed in detail on admission -discussed all findings and current treatment plan with patient/Family/POA -Consultations reviewed for recommendations -Patient's disposition for safe discharge discussed with case filler Dictation performed by [employer] direct speech recognition software, therefore industrial engineer variants and typographical errors may occur. Time Spent With Patient Time with patient: 25 - 35 minutes Subjective Date/time seen: 01/01/24 10:47 Interval history: Chief Complaint: Altered mental status Narrative: This is an 83-year-old female with dementia presented to the emergency department via EMS from [facility] for evaluation of altered mental status. She is not the best historian majority of the following is obtained via a review of her EMR. Family members have not returned phone calls. She is known to the hospitalist service from a recent admission nearly 2 weeks ago at which time she was treated for acute respiratory failure with hypoxia due to COVID-19. She had no oxygen requirement on discharge however she has required oxygen since she has been back at her nursing facility. At baseline she is reportedly alert and oriented x1 however staff feel that she is more confused than usual and sent her in for evaluation today. 12/31: Patient alert and oriented x 1 to 2 knows her name
--- NOTE | 2024-01-01 13:02 | PCSTNOTE ---
Please refer to the Bedside Swallow Evaluation in the EMR. Please note, silent aspiration cannot be ruled out at bedside.
--- NOTE | 2024-01-01 13:43 | PC.NURSE ---
patient refusing to let personnel take her to have CTA scan done; provider, Isabel Ramirez, notified.
--- NOTE | 2024-01-01 15:52 | PC.NURSE ---
Conversation with son, Sanjay, RE: Code Status. Group Home Orders state patient is a Full Code. ER Order per Physician: DNR. Called to clarify, son wanted to clarify that care was not being withdrawn, but that we will not perform CPR, Cardioversion, or Intubation. Sanjay confirms with Do Not Resuscitate Order.
--- NOTE | 2024-01-01 15:57 | PC.NURSE ---
Addendum entered by Bhavana Russo RN 01/01/24 16:04: Purple toes (great toe, third toe, & fifth toe) on the left foot, where left pedal pulse is absent. Right leg is mottled and pulses are positive in femoral, popliteal, & tibialis. No pulse in right foot per doppler at bedside. Nurse Practitioner notified. Original Note: Nurse noticed patient right leg mottled, in addition to her very dark purple colored great toe. Arterial doppler ordered to evaluate arterial flow indexes. Positive fermoral, popliteal, tibialis pulses doppled at bedside, dorsalis pedis no pulse. Ultrasound department notified that patient has no pulse to right foot and the left leg is mottled. She states she will address it as soon as she is able.
[2024-01-01 17:22] LABS: INR 1.1; Prothrombin Time 14.5 Seconds (11.1-14.7)
[2024-01-01 17:23] LABS: Partial Thromboplastin Time 40.4 SECONDS (22.3-36.8)
[2024-01-01] MEDS: SODIUM CHLORIDE 0.9% IV 1,000 ML 100 ML IV CONT (17:51)
[2024-01-01] MEDS: PREGABALIN (*CRX) 75 MG CAPSULE PO (17:53)
[2024-01-01] MEDS: HEPARIN SOD/D5W 100 UNITS/ML 25,000 UNITS/250 ML BAG 11 UNITS IV CONT (17:59)
[2024-01-01] MEDS: risperiDONE 0.25 MG TABLET PO (20:28)
[2024-01-01] MEDS: ALPRAZolam (*CRX) 0.5 MG TABLET 2 MG PO (20:28)
[2024-01-01] MEDS: MIRTAZAPINE 15 MG TABLET PO (20:28)
[2024-01-02] VITALS (13 sets, daily range): BP systolic 119–151; BP diastolic 51–61; PULSE 64–84; RESP 16–20; TEMP 36.9–37.2; O2SAT 96–100
[2024-01-02] MEDS: IPRATROPIUM 0.5 MG/ALBUTEROL SULFATE 2.5 MG AMPUL.NEB 3 ML INHALATION ×4 (01:30→19:50)
[2024-01-02 03:22] LABS: Partial Thromboplastin Time > 200.0 SECONDS (22.3-36.8)
[2024-01-02] MEDS: CENTRAL LINE FLUSH 10 ML IV PUSH ×3 (05:51→20:37)
[2024-01-02] MEDS: LEVOTHYROXINE SODIUM 100 MCG TABLET PO (05:51)
[2024-01-02] MEDS: cefTRIAXone 2 GM/NS 100 ML 2 GM/100 ML BAG IVPB (09:01)
[2024-01-02 09:39] LABS: Basophils Absolute Auto 0.1 K/mm3 (0.0-0.1); Basophils Percent Auto 0.6 % (0.2-1.2); Eosinophils Absolute Auto 0.2 K/mm3 (0-0.3); Hematocrit 36.2 % (37.0-47.0); Hemoglobin 11.6 g/dL (12.0-15.0); Immature Granulocyte Absolute 0.04 K/mm3 (0.00-0.031); Immature Granulocyte Percent A 0.4 % (0-0.5); Lymphocytes Absolute Auto 1.41 K/mm3 (0.9-3.2); Lymphocytes Percent Auto 15.6 % (18.3-44.2); Mean Corpuscular Hemoglobin 31.1 pg (26-34); Mean Corpuscular Volume 97.1 fl (80-100); Mean Platelet Volume 12.4 fl (7.4-10.4); Monocytes Absolute Auto 1.2 K/mm3 (0.1-0.6); Monocytes Percent Auto 13.5 % (2.6-8.5); Neutrophils Absolute Auto 6.1 K/mm3 (1.3-6.7); Neutrophils Percent Auto 67.9 % (45.5-73.1); Platelet Count Result 107 k/mm3 (150-375); Red Blood Count 3.73 M/mm3 (4.2-5.4); Red Cell Distribution Width 14.1 % (11.5-14.5)
--- NOTE | 2024-01-02 09:40 | PCRCNOTE ---
0800 neb tx not given due to patient having behavioral episodes this morning. Will offer at a later time. RN informed of decision.
[2024-01-02 09:52] LABS: Alanine Aminotransferase 14 U/L (6-35); Albumin Level 2.2 g/dL (3.5-5.1); Alkaline Phosphatase 113 U/L (38-126); Anion Gap 2 mmol/L (8-16); Aspartate Amino Transferase 23 U/L (14-36); Bilirubin,Total 0.6 mg/dL (0.2-1.3); Blood Urea Nitrogen 23 mg/dL (7-17); Calcium 7.8 mg/dL (8.4-10.2); Carbon Dioxide 26 mmol/L (22-30); Chloride 112 mmol/L (98-107); Cholesterol 83 mg/dL (0-200); Estimated CRCL calculation 34 ml/min; Estimated Glomerular Filt Rate 53; Glucose 94 mg/dL (65-110); HDL Direct 32 mg/dL; Potassium 3.5 mmol/L (3.4-5.0); Sodium 140 mmol/L (137-145); Triglycerides 71 mg/dL (<150)
[2024-01-02 10:02] LABS: LDL Cholesterol Direct 48 mg/dL
[2024-01-02 10:12] LABS: Partial Thromboplastin Time > 200.0 SECONDS (22.3-36.8)
[2024-01-02] MEDS: ALPRAZolam (*CRX) 0.5 MG TABLET 1 MG PO (10:45)
--- NOTE | 2024-01-02 10:45 | PCOTNOTE ---
Per RN, pt is not appropriate today for Occupational therapy treatment due to critical APTT results and being on heparin for less than 24hrs. Will continue when medically appropriate per POC duration/frequency.
[2024-01-02] MEDS: PREGABALIN (*CRX) 75 MG CAPSULE PO ×2 (10:46→17:48)
[2024-01-02 11:16] LABS: Partial Thromboplastin Time 131.2 SECONDS (22.3-36.8)
[2024-01-02] MEDS: HEPARIN SOD/D5W 100 UNITS/ML 25,000 UNITS/250 ML BAG 8 UNITS IV CONT (11:31)
--- NOTE | 2024-01-02 12:20 | PM.IMPN ---
Progress Note: A&P Assessment and Plan (1) Acute kidney injury: Code(s): N17.9 - Acute kidney failure, unspecified Status: Acute (2) Acute hypoxic respiratory failure: Code(s): J96.01 - Acute respiratory failure with hypoxia Status: Acute (3) Altered mental status: Code(s): R41.82 - Altered mental status, unspecified Status: Acute (4) Dehydration: Code(s): E86.0 - Dehydration Status: Acute (5) Abnormal urinalysis: Code(s): R82.90 - Unspecified abnormal findings in urine Status: Acute (6) HTN (hypertension): Code(s): I10 - Essential (primary) hypertension Status: Acute Plan ?acute respiratory failure with hypoxia -requiring 4LNC?POA supplemental oxygen to maintain oxygen saturation 92% - wean as tolerated down to 3L - be secondary to long COVID versus bacterial pneumonia will treat for gram +/- -elevated DDIMER -CTA to R/O PE Patient refusing -Hep gtt ?metabolic encephalopathy-RESOLVED -Secondary to UTI/Hypokia/ZAYDA/dehydration -Improving -IV fluids ?acute kidney injury prerenal-Improving -Secondary to? dehydration ?- aggressive IV hydration.? -nephrology consulted? if no improvement -Avoid nephrotoxic drugs. ? -Routine CMP monitoring GFR. currently 16? -Monitor electrolytes especially potassium.? -Antibiotic doses depending on creatinine clearance.? -Pharmacy does medications.? ?Pneumonia -Viral vs bacterial treat for possible gram +/- -Swallow evaluation ?-Bronchodilators.? -Chest x-ray shows improving? from COVID -incentive spirometry while awake.? -sputum culture -influenza/COVID negative -antibiotic therapy (if suspected staph cover with vancomycin until sputum culture negative) -supplemental oxygen therapy to maintain oxygen 92% -monitor for signs of in sepsis -blood cultures x2 -lactic acid -CMP/CBC daily PVD -LT great toe dusk and cool to touch no palpable pulse-Improved today warm to touch and color returning -Hep gtt started -MUNIR's ordered -dopplered threading pulse - Acute on chronic renal failure -Gentle IV hydration. -nephrology consulted -Avoid nephrotoxic drugs. -Monitor antihypertensive drug therapy. -Avoid NSAIDs. -Routine CMP monitoring GFR. -Monitor electrolytes especially potassium. -Antibiotic doses depending on creatinine clearance. -Pharmacy does medications. -Cr -Routine follow-up with Nephrology as an outpatient. Failure to thrive -patient refusing to eat or drink -protein shakes -monitor labs -replenish electrolytes -IV fluids ? UTI-RULED OUT ?-Urine cultures and blood cultures -Continue IV hydration.? -Monitor CBC, CMP watch for sepsis.? -Monitor vital signs.? - empiric antibiotics pending sensitivities.? ?Code status:? DNR DVT prophylaxis:? Heparin Stress ulcer prophylaxis:? Protonix 40 daily PT/OT notes:? PT/OT pending Disposition: ? Patient refusing most treatment at this time will reach out to the son about code status and interventions if need pending MUNIR's. -Patient's previous records reviewed on admission -ER notes reviewed in detail on admission -discussed all findings and current treatment plan with patient/Family/POA -Consultations reviewed for recommendations -Patient's disposition for safe discharge discussed with watch caser Dictation performed by [employer] direct speech recognition software, therefore covering and lining supervisor variants and typographical errors may occur. Time Spent With Patient Time with patient: 25 - 35 minutes Subjective Date/time seen: 01/02/24 12:20 Interval history: Chief Complaint: Altered mental status Narrative: This is an 83-year-old female with dementia presented to the emergency department via EMS from [facility] for evaluation of altered mental status. She is not the best historian majority of the following is obtained via a review of her EMR. Family members have not returned ph
[2024-01-02] MEDS: PANTOPRAZOLE 40 MG TABLET PO (17:44)
[2024-01-02] MEDS: DULoxetine HCL 30 MG CAPSULE.DR PO (17:44)
[2024-01-02] MEDS: AZITHROMYCIN 250 MG TABLET 500 MG PO (17:44)
[2024-01-02] MEDS: atenoloL 50 MG TABLET 100 MG PO (17:44)
[2024-01-02 18:11] LABS: Partial Thromboplastin Time > 200.0 SECONDS (22.3-36.8)
[2024-01-02 19:10] LABS: Partial Thromboplastin Time > 200.0 SECONDS (22.3-36.8)
[2024-01-02] MEDS: risperiDONE 0.25 MG TABLET PO (20:37)
[2024-01-02] MEDS: guaiFENesin 12 HR 600 MG TABCR PO (20:37)
[2024-01-02] MEDS: ALPRAZolam (*CRX) 0.5 MG TABLET 2 MG PO (20:37)
[2024-01-02] MEDS: MIRTAZAPINE 15 MG TABLET PO (20:37)
[2024-01-03] VITALS (13 sets, daily range): BP systolic 125–166; BP diastolic 57–99; PULSE 60–75; RESP 17–20; TEMP 36.4–36.8; O2SAT 92–97
[2024-01-03 01:25] LABS: Partial Thromboplastin Time 96.8 SECONDS (22.3-36.8)
[2024-01-03] MEDS: IPRATROPIUM 0.5 MG/ALBUTEROL SULFATE 2.5 MG AMPUL.NEB 3 ML INHALATION ×4 (03:04→21:03)
[2024-01-03] MEDS: CENTRAL LINE FLUSH 10 ML IV PUSH ×3 (06:14→19:47)
[2024-01-03] MEDS: LEVOTHYROXINE SODIUM 100 MCG TABLET PO (06:14)
[2024-01-03 06:55] LABS: Basophils Absolute Auto 0.1 K/mm3 (0.0-0.1); Basophils Percent Auto 0.9 % (0.2-1.2); Eosinophils Absolute Auto 0.2 K/mm3 (0-0.3); Eosinophils Percent Auto 3.8 % (0-4.4); Hemoglobin 12.2 g/dL (12.0-15.0); Immature Granulocyte Absolute 0.01 K/mm3 (0.00-0.031); Immature Granulocyte Percent A 0.2 % (0-0.5); Lymphocytes Absolute Auto 1.76 K/mm3 (0.9-3.2); Lymphocytes Percent Auto 27.5 % (18.3-44.2); Mean Corpuscular HGB Conc 32.1 g/dl (32-36); Mean Corpuscular Hemoglobin 31.8 pg (26-34); Mean Platelet Volume 12.6 fl (7.4-10.4); Monocytes Absolute Auto 0.9 K/mm3 (0.1-0.6); Monocytes Percent Auto 14.4 % (2.6-8.5); Neutrophils Absolute Auto 3.4 K/mm3 (1.3-6.7); Neutrophils Percent Auto 53.2 % (45.5-73.1); Platelet Count Result 106 k/mm3 (150-375); Red Blood Count 3.84 M/mm3 (4.2-5.4); Red Cell Distribution Width 14.3 % (11.5-14.5); White Blood Count 6.4 K/mm3 (4.5-10.0)
[2024-01-03 07:06] LABS: Alanine Aminotransferase 13 U/L (6-35); Albumin Level 2.3 g/dL (3.5-5.1); Alkaline Phosphatase 106 U/L (38-126); Anion Gap 2 mmol/L (8-16); Aspartate Amino Transferase 22 U/L (14-36); Bilirubin,Total 0.8 mg/dL (0.2-1.3); Blood Urea Nitrogen 16 mg/dL (7-17); Calcium 8.3 mg/dL (8.4-10.2); Carbon Dioxide 24 mmol/L (22-30); Chloride 111 mmol/L (98-107); Estimated CRCL calculation 38 ml/min; Estimated Glomerular Filt Rate 60; Glucose 83 mg/dL (65-110); Potassium 3.6 mmol/L (3.4-5.0); Sodium 137 mmol/L (137-145)
[2024-01-03 07:13] LABS: Partial Thromboplastin Time 99.1 SECONDS (22.3-36.8)
[2024-01-03] MEDS: AZITHROMYCIN 250 MG TABLET 500 MG PO (09:05)
[2024-01-03] MEDS: atenoloL 50 MG TABLET 100 MG PO (09:05)
[2024-01-03] MEDS: PANTOPRAZOLE 40 MG TABLET PO (09:05)
[2024-01-03] MEDS: DULoxetine HCL 30 MG CAPSULE.DR PO (09:05)
[2024-01-03] MEDS: guaiFENesin 12 HR 600 MG TABCR PO ×2 (09:06→19:45)
[2024-01-03] MEDS: PREGABALIN (*CRX) 75 MG CAPSULE PO ×2 (09:06→16:53)
[2024-01-03] MEDS: ALPRAZolam (*CRX) 0.5 MG TABLET 1 MG PO ×2 (09:08→12:23)
--- NOTE | 2024-01-03 12:12 | PM.IMPN ---
Progress Note: A&P Assessment and Plan (1) Acute kidney injury: Code(s): N17.9 - Acute kidney failure, unspecified Status: Acute (2) Acute hypoxic respiratory failure: Code(s): J96.01 - Acute respiratory failure with hypoxia Status: Acute (3) Altered mental status: Code(s): R41.82 - Altered mental status, unspecified Status: Acute (4) Dehydration: Code(s): E86.0 - Dehydration Status: Acute (5) Abnormal urinalysis: Code(s): R82.90 - Unspecified abnormal findings in urine Status: Acute (6) HTN (hypertension): Code(s): I10 - Essential (primary) hypertension Status: Acute (7) Pulmonary embolism: Code(s): I26.99 - Other pulmonary embolism without acute cor pulmonale Status: Acute (8) Dementia: Code(s): F03.90 - Unspecified dementia, unspecified severity, without behavioral disturbance, psychotic disturbance, mood disturbance, and anxiety Status: Acute (9) Elevated d-dimer: Code(s): R79.89 - Other specified abnormal findings of blood chemistry Status: Acute (10) Atherosclerotic PVD with intermittent claudication: Code(s): I70.219 - Atherosclerosis of [place] arteries of extremities with intermittent claudication, unspecified extremity Status: Acute Plan ?acute respiratory failure with hypoxia -requiring 4LNC?POA supplemental oxygen to maintain oxygen saturation 92% - wean as tolerated down to 3L - be secondary to long COVID versus bacterial pneumonia will treat for gram +/- -elevated DDIMER -CTA CARLTON, and RLL PE -Hep gttwill transition to PO eliquis prior to discharge Pulmonary emboli -Heparin gtt -will transition to Eliquis prior to discharge -continue to wean oxygen -no heart strain noted on CT ?metabolic encephalopathy-RESOLVED -Secondary to UTI/Hypokia/ZAYDA/dehydration -Improving -IV fluids ?acute kidney injury prerenal-Improving -Secondary to? dehydration ?- aggressive IV hydration.? -nephrology consulted? if no improvement -Avoid nephrotoxic drugs. ? -Routine CMP monitoring GFR. currently 16? -Monitor electrolytes especially potassium.? -Antibiotic doses depending on creatinine clearance.? -Pharmacy does medications.? ?Pneumonia -Viral vs bacterial treat for possible gram +/- -Swallow evaluation ?-Bronchodilators.? -Chest x-ray shows improving? from COVID -incentive spirometry while awake.? -sputum culture -influenza/COVID negative -supplemental oxygen therapy to maintain oxygen 92% PVD -LT great toe dusk and cool to touch no palpable pulse-Improved today warm to touch and color returning 01/01 -Hep gtt started -MUNIR's ordered -dopplered threading pulse 01/03: -LLE with cyanosis and pain but warm to touch -Still waiting on MUNIR's and venous dopplers patient had refused Acute on chronic renal failure -Gentle IV hydration. -nephrology consulted -Avoid nephrotoxic drugs. -Monitor antihypertensive drug therapy. -Avoid NSAIDs. -Routine CMP monitoring GFR. -Monitor electrolytes especially potassium. -Antibiotic doses depending on creatinine clearance. -Pharmacy does medications. -Cr -Routine follow-up with Nephrology as an outpatient. Failure to thrive -patient refusing to eat or drink -protein shakes -monitor labs -replenish electrolytes -IV fluids ? UTI-RULED OUT ?-Urine cultures and blood cultures -Continue IV hydration.? -Monitor CBC, CMP watch for sepsis.? -Monitor vital signs.? - empiric antibiotics pending sensitivities.? ?Code status:? DNR DVT prophylaxis:? Heparin transition to eliquis PO Stress ulcer prophylaxis:? Protonix 40 daily PT/OT notes:? PT/OT pending Disposition: ? Patient refusing most treatment at this time will reach out to the son about code status and interventions if need pending MUNIR's. Time Spent With Patient Time with patient: 25 - 35 minutes Subjective Date/time seen: 01/03/24 12:12 Int
--- NOTE | 2024-01-03 12:34 | PC.NURSE ---
Patient has single lumen picc with heparin continuously running through it at this time. Patient has no other IV access for IV antibiotic that is scheduled daily. Hospitalist Isabel acharya.
--- NOTE | 2024-01-03 18:18 | PC.NURSE ---
On 01/03/24, the graduate nurse Hafsa Perez, provided care and completed [facility] documentation on this patient. I have reviewed the graduate nurse's documentation and agree with the findings.
[2024-01-03] MEDS: ALPRAZolam (*CRX) 0.5 MG TABLET 2 MG PO (19:44)
[2024-01-03] MEDS: MIRTAZAPINE 15 MG TABLET PO (19:45)
[2024-01-03] MEDS: risperiDONE 0.25 MG TABLET PO (19:45)
[2024-01-04] VITALS (18 sets, daily range): BP systolic 116–158; BP diastolic 52–71; PULSE 60–99; RESP 16–20; TEMP 36–36.7; O2SAT 88–97
[2024-01-04] MEDS: IPRATROPIUM 0.5 MG/ALBUTEROL SULFATE 2.5 MG AMPUL.NEB 3 ML INHALATION ×4 (01:35→20:45)
[2024-01-04] MEDS: CENTRAL LINE FLUSH 10 ML IV PUSH ×3 (05:33→19:41)
[2024-01-04] MEDS: LEVOTHYROXINE SODIUM 100 MCG TABLET PO (05:33)
[2024-01-04 05:47] LABS: Basophils Percent Auto 0.4 % (0.2-1.2); Eosinophils Absolute Auto 0.2 K/mm3 (0-0.3); Eosinophils Percent Auto 3.6 % (0-4.4); Hematocrit 34.6 % (37.0-47.0); Hemoglobin 11.4 g/dL (12.0-15.0); Immature Granulocyte Absolute 0.02 K/mm3 (0.00-0.031); Immature Granulocyte Percent A 0.3 % (0-0.5); Lymphocytes Absolute Auto 1.37 K/mm3 (0.9-3.2); Lymphocytes Percent Auto 20.3 % (18.3-44.2); Mean Corpuscular HGB Conc 32.9 g/dl (32-36); Mean Corpuscular Hemoglobin 31.8 pg (26-34); Mean Corpuscular Volume 96.6 fl (80-100); Mean Platelet Volume 12.6 fl (7.4-10.4); Monocytes Absolute Auto 0.7 K/mm3 (0.1-0.6); Neutrophils Absolute Auto 4.3 K/mm3 (1.3-6.7); Neutrophils Percent Auto 64.4 % (45.5-73.1); Platelet Count Result 117 k/mm3 (150-375); Red Blood Count 3.58 M/mm3 (4.2-5.4); Red Cell Distribution Width 14.2 % (11.5-14.5); White Blood Count 6.7 K/mm3 (4.5-10.0)
[2024-01-04 05:58] LABS: Alanine Aminotransferase 13 U/L (6-35); Albumin Level 2.4 g/dL (3.5-5.1); Alkaline Phosphatase 116 U/L (38-126); Anion Gap 0 mmol/L (8-16); Aspartate Amino Transferase 22 U/L (14-36); Bilirubin,Total 0.4 mg/dL (0.2-1.3); Blood Urea Nitrogen 15 mg/dL (7-17); Calcium 8.3 mg/dL (8.4-10.2); Carbon Dioxide 30 mmol/L (22-30); Chloride 108 mmol/L (98-107); Estimated CRCL calculation 34 ml/min; Estimated Glomerular Filt Rate 53; Glucose 117 mg/dL (65-110); Potassium 3.4 mmol/L (3.4-5.0); Sodium 138 mmol/L (137-145)
[2024-01-04 05:59] LABS: Partial Thromboplastin Time 110.6 SECONDS (22.3-36.8)
[2024-01-04] MEDS: HEPARIN SOD/D5W 100 UNITS/ML 25,000 UNITS/250 ML BAG IV CONT (08:37)
[2024-01-04] MEDS: guaiFENesin 12 HR 600 MG TABCR PO ×2 (10:18→19:41)
[2024-01-04] MEDS: PANTOPRAZOLE 40 MG TABLET PO (10:18)
[2024-01-04] MEDS: atenoloL 50 MG TABLET 100 MG PO (10:18)
[2024-01-04] MEDS: PREGABALIN (*CRX) 75 MG CAPSULE PO ×2 (10:18→17:01)
[2024-01-04] MEDS: DULoxetine HCL 30 MG CAPSULE.DR PO (10:18)
[2024-01-04] MEDS: ALPRAZolam (*CRX) 0.5 MG TABLET 1 MG PO (10:19)
--- NOTE | 2024-01-04 10:58 | PM.IMPN ---
Progress Note: A&P Assessment and Plan (1) Acute kidney injury: Code(s): N17.9 - Acute kidney failure, unspecified Status: Acute (2) Acute hypoxic respiratory failure: Code(s): J96.01 - Acute respiratory failure with hypoxia Status: Acute (3) Altered mental status: Code(s): R41.82 - Altered mental status, unspecified Status: Acute (4) Dehydration: Code(s): E86.0 - Dehydration Status: Acute (5) Abnormal urinalysis: Code(s): R82.90 - Unspecified abnormal findings in urine Status: Acute (6) HTN (hypertension): Code(s): I10 - Essential (primary) hypertension Status: Acute (7) Pulmonary embolism: Code(s): I26.99 - Other pulmonary embolism without acute cor pulmonale Status: Acute (8) Dementia: Code(s): F03.90 - Unspecified dementia, unspecified severity, without behavioral disturbance, psychotic disturbance, mood disturbance, and anxiety Status: Acute (9) Elevated d-dimer: Code(s): R79.89 - Other specified abnormal findings of blood chemistry Status: Acute (10) Atherosclerotic PVD with intermittent claudication: Code(s): I70.219 - Atherosclerosis of [place] arteries of extremities with intermittent claudication, unspecified extremity Status: Acute Plan ?acute respiratory failure with hypoxia -requiring 4LNC?POA supplemental oxygen to maintain oxygen saturation 92% - wean as tolerated down to 3L - be secondary to long COVID versus bacterial pneumonia will treat for gram +/- -elevated DDIMER -CTA CARLTON, and RLL PE -Hep gttwill transition to PO eliquis prior to discharge Pulmonary emboli -Heparin gtt -will transition to Eliquis prior to discharge will need 7 day loading dose -continue to wean oxygen -no heart strain noted on CT ?metabolic encephalopathy-RESOLVED -Secondary to UTI/Hypokia/ZAYDA/dehydration -Improving -IV fluids ?acute kidney injury prerenal-RESOLVED -Secondary to? dehydration ?- aggressive IV hydration.? -nephrology consulted? if no improvement -Avoid nephrotoxic drugs. ? -Routine CMP monitoring GFR. currently 16? -Monitor electrolytes especially potassium.? -Antibiotic doses depending on creatinine clearance.? -Pharmacy does medications.? ?Pneumonia -Viral vs bacterial treat for possible gram +/- -Swallow evaluation ?-Bronchodilators.? -Chest x-ray shows improving? from COVID -incentive spirometry while awake.? -sputum culture -influenza/COVID negative -supplemental oxygen therapy to maintain oxygen 92% PVD -LT great toe dusk and cool to touch no palpable pulse-Improved today warm to touch and color returning 01/01 -Hep gtt started -MUNIR's ordered -dopplered threading pulse 01/03: -LLE with cyanosis and pain but warm to touch -Still waiting on MUNIR's -Venous dopplers negative for DVT's Acute on chronic renal failure -Gentle IV hydration. -nephrology consulted -Avoid nephrotoxic drugs. -Monitor antihypertensive drug therapy. -Avoid NSAIDs. -Routine CMP monitoring GFR. -Monitor electrolytes especially potassium. -Antibiotic doses depending on creatinine clearance. -Pharmacy does medications. -Cr -Routine follow-up with Nephrology as an outpatient. Failure to thrive -patient refusing to eat or drink -protein shakes -monitor labs -replenish electrolytes -IV fluids ? UTI-RULED OUT ?-Urine cultures and blood cultures -Continue IV hydration.? -Monitor CBC, CMP watch for sepsis.? -Monitor vital signs.? - empiric antibiotics pending sensitivities.? ?Code status:? DNR DVT prophylaxis:? Heparin transition to eliquis PO Stress ulcer prophylaxis:? Protonix 40 daily PT/OT notes:? PT/OT pending Disposition: ? Patient refusing most treatment waiting on MUNIR's might need vascular intervention however the patient son may refuse any further interventions. Likely patient will discharge back to SNF on PO AC. Still requiring O2 PRN
[2024-01-04 12:29] LABS: Partial Thromboplastin Time 47.8 SECONDS (22.3-36.8)
[2024-01-04] MEDS: HEPARIN SODIUM 5,000 UNITS/ML VIAL 5000 UNITS IV PUSH (13:03)
[2024-01-04] MEDS: MIRTAZAPINE 15 MG TABLET PO (19:41)
[2024-01-04] MEDS: ALPRAZolam (*CRX) 0.5 MG TABLET 2 MG PO (19:41)
[2024-01-04] MEDS: risperiDONE 0.25 MG TABLET PO (19:41)
[2024-01-04 20:23] LABS: Partial Thromboplastin Time > 200.0 SECONDS (22.3-36.8)
[2024-01-05] VITALS (15 sets, daily range): BP systolic 139–159; BP diastolic 60–82; PULSE 52–61; RESP 16–18; TEMP 36.3–37; O2SAT 94–99
[2024-01-05] MEDS: IPRATROPIUM 0.5 MG/ALBUTEROL SULFATE 2.5 MG AMPUL.NEB 3 ML INHALATION ×4 (01:51→20:08)
[2024-01-05 03:57] LABS: Partial Thromboplastin Time 87.7 SECONDS (22.3-36.8)
[2024-01-05] MEDS: CENTRAL LINE FLUSH 10 ML IV PUSH ×3 (05:30→20:13)
[2024-01-05 05:39] LABS: Basophils Percent Auto 0.4 % (0.2-1.2); Eosinophils Absolute Auto 0.3 K/mm3 (0-0.3); Eosinophils Percent Auto 4.8 % (0-4.4); Hematocrit 35.9 % (37.0-47.0); Hemoglobin 11.4 g/dL (12.0-15.0); Immature Granulocyte Absolute 0.02 K/mm3 (0.00-0.031); Immature Granulocyte Percent A 0.4 % (0-0.5); Lymphocytes Absolute Auto 1.42 K/mm3 (0.9-3.2); Lymphocytes Percent Auto 25.3 % (18.3-44.2); Mean Corpuscular HGB Conc 31.8 g/dl (32-36); Mean Corpuscular Hemoglobin 31.5 pg (26-34); Mean Corpuscular Volume 99.2 fl (80-100); Mean Platelet Volume 12.5 fl (7.4-10.4); Monocytes Absolute Auto 0.6 K/mm3 (0.1-0.6); Monocytes Percent Auto 10.7 % (2.6-8.5); Neutrophils Absolute Auto 3.3 K/mm3 (1.3-6.7); Neutrophils Percent Auto 58.4 % (45.5-73.1); Platelet Count Result 110 k/mm3 (150-375); Red Blood Count 3.62 M/mm3 (4.2-5.4); Red Cell Distribution Width 14.4 % (11.5-14.5); White Blood Count 5.6 K/mm3 (4.5-10.0)
[2024-01-05 06:02] LABS: Alanine Aminotransferase 13 U/L (6-35); Albumin Level 2.3 g/dL (3.5-5.1); Alkaline Phosphatase 100 U/L (38-126); Anion Gap -2 mmol/L (8-16); Aspartate Amino Transferase 25 U/L (14-36); Bilirubin,Total 0.4 mg/dL (0.2-1.3); Blood Urea Nitrogen 11 mg/dL (7-17); Calcium 8.3 mg/dL (8.4-10.2); Carbon Dioxide 33 mmol/L (22-30); Chloride 107 mmol/L (98-107); Estimated CRCL calculation 42 ml/min; Estimated Glomerular Filt Rate > 60; Glucose 89 mg/dL (65-110); Potassium 3.4 mmol/L (3.4-5.0); Sodium 138 mmol/L (137-145)
[2024-01-05] MEDS: APIXABAN 5 MG TABLET 10 MG PO ×2 (10:42→20:12)
[2024-01-05] MEDS: atenoloL 50 MG TABLET 100 MG PO (10:42)
[2024-01-05] MEDS: DULoxetine HCL 30 MG CAPSULE.DR PO (10:42)
[2024-01-05] MEDS: PANTOPRAZOLE 40 MG TABLET PO (10:42)
[2024-01-05] MEDS: guaiFENesin 12 HR 600 MG TABCR PO ×2 (10:43→20:12)
[2024-01-05] MEDS: PREGABALIN (*CRX) 75 MG CAPSULE PO ×2 (10:43→18:26)
--- NOTE | 2024-01-05 11:19 | PM.IMPN ---
Progress Note: A&P Assessment and Plan (1) Acute hypoxic respiratory failure: Code(s): J96.01 - Acute respiratory failure with hypoxia Status: Acute Assessment and Plan: Related to PE, continue to titrate oxygen, will still need oxygen on discharge (2) Failure to thrive: Status: Acute Assessment and Plan: Failure to thrive -patient refusing to eat or drink -protein shakes -monitor labs -replenish electrolytes Spoke with patient's son today and informed him that she is not doing the best, not eating/drinking well and not cooperative with care. He states she has been slowly declining over the last 6 months. Son is in [place] for 2 more days. I discussed that Hospice Consult at the correction may be the best solution given her current and chronic health concerns. He would prefer she stay in hospital until he arrives but he understands that she may need to go back tomorrow. (3) Pulmonary embolism: Code(s): I26.99 - Other pulmonary embolism without acute cor pulmonale Status: Acute Assessment and Plan: Stop heparin drip and start Eliquis 10 mg Q12 for 7 days then 5 mg Q12 (4) Altered mental status: Code(s): R41.82 - Altered mental status, unspecified Status: Acute Assessment and Plan: Agitated with dementia (5) HTN (hypertension): Code(s): I10 - Essential (primary) hypertension Status: Chronic Assessment and Plan: Continue atenolol and losartan (6) Dementia: Code(s): F03.90 - Unspecified dementia, unspecified severity, without behavioral disturbance, psychotic disturbance, mood disturbance, and anxiety Status: Chronic Assessment and Plan: Agitation with changing brief or other care provided (7) Atherosclerotic PVD with intermittent claudication: Code(s): I70.219 - Atherosclerosis of [place] arteries of extremities with intermittent claudication, unspecified extremity Status: Acute Assessment and Plan: LLE color change though much improved. Patient will not tolerate MUNIR. Heparin gtt stopped and Eliquis started today (8) Acute kidney injury: Code(s): N17.9 - Acute kidney failure, unspecified Status: Resolved Assessment and Plan: resolved (9) Dehydration: Code(s): E86.0 - Dehydration Status: Resolved Assessment and Plan: Resolved but not great oral intake Plan Code status:? DNR DVT prophylaxis:?Eliquis Stress ulcer prophylaxis:? Protonix 40 daily Disposition: Return to [facility], failure to thrive Time Spent With Patient Time with patient: Greater than 35 minutes Subjective Date/time seen: 01/05/24 10:00 Interval history: Chief Complaint: Altered mental status Narrative: This is an 83-year-old female with dementia presented to the emergency department via EMS from [facility] for evaluation of altered mental status. She is not the best historian majority of the following is obtained via a review of her EMR. Family members have not returned phone calls. She is known to the hospitalist service from a recent admission nearly 2 weeks ago at which time she was treated for acute respiratory failure with hypoxia due to COVID-19. She had no oxygen requirement on discharge however she has required oxygen since she has been back at her nursing facility. At baseline she is reportedly alert and oriented x1 however staff feel that she is more confused than usual and sent her in for evaluation today. 12/31: Patient alert and oriented x 1 to 2 knows her name and date of . Poor historian but does remember she was recently hospitalized with COVID. patient still remains on 4 L supplemental oxygen to maintain oxygen saturation 92%. labs had difficulty getting patient has a follow-up CMP with renal function due to hemolyzed blood placed a PICC. D-dimer elevated some concern for possible PE, if ZAYDA has not resolved with IV fluids will get V/Q
[2024-01-05] MEDS: ALPRAZolam (*CRX) 0.5 MG TABLET 1 MG PO (12:09)
[2024-01-05] MEDS: LOSARTAN POTASSIUM 100 MG TABLET BY MOUTH (12:09)
[2024-01-05] MEDS: TOLNAFTATE 1% POWDER 45 GM BTL 1 APPLIC TOPICAL ×2 (15:04→20:13)
[2024-01-05] MEDS: risperiDONE 0.25 MG TABLET PO (20:12)
[2024-01-05] MEDS: MIRTAZAPINE 15 MG TABLET PO (20:12)
[2024-01-05] MEDS: ALPRAZolam (*CRX) 0.5 MG TABLET 2 MG PO (20:12)
[2024-01-06] VITALS (8 sets, daily range): BP systolic 141–142; BP diastolic 86–87; PULSE 48–63; RESP 16–17; TEMP 36.4–36.6; O2SAT 93–100
[2024-01-06] MEDS: LEVOTHYROXINE SODIUM 100 MCG TABLET PO (05:58)
[2024-01-06] MEDS: CENTRAL LINE FLUSH 10 ML IV PUSH (05:58)
[2024-01-06 06:14] LABS: Basophils Percent Auto 0.5 % (0.2-1.2); Eosinophils Absolute Auto 0.2 K/mm3 (0-0.3); Hematocrit 39.2 % (37.0-47.0); Hemoglobin 12.3 g/dL (12.0-15.0); Immature Granulocyte Absolute 0.02 K/mm3 (0.00-0.031); Immature Granulocyte Percent A 0.3 % (0-0.5); Lymphocytes Absolute Auto 1.04 K/mm3 (0.9-3.2); Lymphocytes Percent Auto 17.4 % (18.3-44.2); Mean Corpuscular HGB Conc 31.4 g/dl (32-36); Mean Corpuscular Hemoglobin 31.2 pg (26-34); Mean Corpuscular Volume 99.5 fl (80-100); Mean Platelet Volume 12.2 fl (7.4-10.4); Monocytes Absolute Auto 0.7 K/mm3 (0.1-0.6); Neutrophils Percent Auto 66.8 % (45.5-73.1); Platelet Count Result 110 k/mm3 (150-375); Red Blood Count 3.94 M/mm3 (4.2-5.4); Red Cell Distribution Width 14.1 % (11.5-14.5)
[2024-01-06 06:30] LABS: Alanine Aminotransferase 13 U/L (6-35); Albumin Level 2.5 g/dL (3.5-5.1); Alkaline Phosphatase 105 U/L (38-126); Anion Gap 0 mmol/L (8-16); Aspartate Amino Transferase 26 U/L (14-36); Bilirubin,Total 0.4 mg/dL (0.2-1.3); Blood Urea Nitrogen 9 mg/dL (7-17); Calcium 8.7 mg/dL (8.4-10.2); Carbon Dioxide 34 mmol/L (22-30); Chloride 105 mmol/L (98-107); Estimated CRCL calculation 38 ml/min; Estimated Glomerular Filt Rate 60; Glucose 90 mg/dL (65-110); Potassium 3.3 mmol/L (3.4-5.0); Sodium 139 mmol/L (137-145)
[2024-01-06] MEDS: IPRATROPIUM 0.5 MG/ALBUTEROL SULFATE 2.5 MG AMPUL.NEB 3 ML INHALATION ×2 (08:00→14:02)
--- NOTE | 2024-01-06 08:46 | PM.DS ---
DS: Admitting Diagnosis Discharge Date 01/06/2024 Admitting Diagnosis zayda, acute hypoxemic respiratory failure, altered mental status, dehydration, abnormal UA, HTN DS: Discharge Diagnosis Discharge Diagnosis (1) Failure to thrive: Status: Acute (2) Pulmonary embolism: Code(s): I26.99 - Other pulmonary embolism without acute cor pulmonale Status: Acute (3) Acute hypoxic respiratory failure: Code(s): J96.01 - Acute respiratory failure with hypoxia Status: Acute (4) Altered mental status: Code(s): R41.82 - Altered mental status, unspecified Status: Acute (5) HTN (hypertension): Code(s): I10 - Essential (primary) hypertension Status: Chronic (6) Dementia: Code(s): F03.90 - Unspecified dementia, unspecified severity, without behavioral disturbance, psychotic disturbance, mood disturbance, and anxiety Status: Chronic (7) Atherosclerotic PVD with intermittent claudication: Code(s): I70.219 - Atherosclerosis of [place] arteries of extremities with intermittent claudication, unspecified extremity Status: Acute (8) Acute kidney injury: Code(s): N17.9 - Acute kidney failure, unspecified Status: Resolved (9) Dehydration: Code(s): E86.0 - Dehydration Status: Resolved DS: Summary Hospital Course Hospital Course: This is an 83-year-old female with dementia presented to the emergency department via EMS from [facility] for evaluation of altered mental status. She is not the best historian majority of the following is obtained via a review of her EMR. Family members have not returned phone calls. She is known to the hospitalist service from a recent admission nearly 2 weeks ago at which time she was treated for acute respiratory failure with hypoxia due to COVID-19. She had no oxygen requirement on discharge however she has required oxygen since she has been back at her nursing facility. At baseline she is reportedly alert and oriented x1 however staff feel that she is more confused than usual and sent her in for evaluation today. 12/31: Patient alert and oriented x 1 to 2 knows her name and date of .? Poor historian but does remember she was recently hospitalized? with COVID. ? patient still remains on 4 L supplemental oxygen to maintain oxygen saturation 92%. ? labs had difficulty getting patient has a follow-up CMP with renal function due to hemolyzed blood placed a PICC. ? D-dimer elevated some concern for possible PE, if ZAYDA? has not resolved with IV fluids will get V/Q scan instead of CTA. ? patient reports she has not been very ambulatory at the SNF as well as not eating or drinking.? Patient is discharged GFR was greater than 60 on arrival it was 16.? 01/01: Patient alert and states she feels better today, remains on 3LNC continue to wean.? ZAYDA resolving CTA and dopplers pending to R/O PE/DVT.? WBC back to normal may have been reactive vs infectious no UTI and blood cultures NGTD.? Some concern with eating and swallowing, swallow eval pending. 01/02:? Patient agitated today wants to be left alone, pulled her PICC out.? Patient LT great toe with improving color with hep gtt.? MUNIR's pending warm to touch BLE.? Will need to speak with sone regarding code status and further interventions patient refusing most.? 01/03: Patient was calm during assessment but continued to have complaints of moderate pain to her LLE venous dopplers and MUNIR's pending continue hep gtt.? LLE warm to touch with discoloration faint pulse heard with doppler. 01/04: Patient resting in bed reports pain to LLE has improved, color looks better today, warm to touch, and threading pulse felt.? MUNIR's pending.? Patient can likely transition to PO Xarelto or Eliquis following the results unsure if family would want any further vascular interventions.? She will need Bridge per PE protocol for 7 days then regular dosing. ? 01/05: Patient resting comfortably, confused wh
[2024-01-06] MEDS: PREGABALIN (*CRX) 75 MG CAPSULE PO (10:49)
[2024-01-06] MEDS: APIXABAN 5 MG TABLET 10 MG PO (10:49)
[2024-01-06] MEDS: atenoloL 50 MG TABLET 100 MG PO (10:49)
[2024-01-06] MEDS: LOSARTAN POTASSIUM 100 MG TABLET BY MOUTH (10:51)
[2024-01-06] MEDS: PANTOPRAZOLE 40 MG TABLET PO (10:51)
[2024-01-06] MEDS: DULoxetine HCL 30 MG CAPSULE.DR PO (10:51)
[2024-01-06] MEDS: guaiFENesin 12 HR 600 MG TABCR PO (10:52)
[2024-01-06] MEDS: POTASSIUM CHLORIDE 20 MEQ PACKET (FOR LIQUID) 40 MEQ PO (10:52)
[2024-01-06] MEDS: TOLNAFTATE 1% POWDER 45 GM BTL 1 APPLIC TOPICAL (10:52)
== END 2024-01-06 15:18 | DRG 175 ==
LOC: ANHED 15:58 → ANH2MED 16:24
PROVIDERS: Emergency Medicine; Internal Medicine; Nurse Practitioner Family; Physician Assistant; Student in an Organized Health Care Education/Training Program; Admitting Provider Internal Medicine; Emergency Provider Physician Assistant; PCP Physician Assistant; Visit Provider Nurse Practitioner
DX: I26.99 Other pulmonary embolism without acute cor pulmonale (principal); G93.41 Metabolic encephalopathy; J96.01 Acute respiratory failure with hypoxia; J18.9 Pneumonia, unspecified organism; J15.9 Unspecified bacterial pneumonia; N17.9 Acute kidney failure, unspecified; U09.9 Post COVID-19 condition, unspecified; I10 Essential (primary) hypertension; I12.9 Hypertensive chronic kidney disease with stage 1 through stage 4 chronic kidney disease, or unspecified chronic kidney disease; N18.9 Chronic kidney disease, unspecified; F03.90 Unspecified dementia, unspecified severity, without behavioral disturbance, psychotic disturbance, mood disturbance, and anxiety; E86.0 Dehydration; E87.6 Hypokalemia; R62.7 Adult failure to thrive; I70.219 Atherosclerosis of native arteries of extremities with intermittent claudication, unspecified extremity; E03.9 Hypothyroidism, unspecified; I48.0 Paroxysmal atrial fibrillation; Z66 Do not resuscitate; I70.212 Atherosclerosis of native arteries of extremities with intermittent claudication, left leg; Z86.73 Personal history of transient ischemic attack (TIA), and cerebral infarction without residual deficits; Z68.22 Body mass index [BMI] 22.0-22.9, adult; Z99.3 Dependence on wheelchair
CPT/HCPCS: 36415; 36569; 71045; 71250; 71275; 80048; 80053; 80061; 81001; 83605; 83735; 85025; 85027; 85380; 85610; 85730; 87040; 87086; 87502; 87634; 92610; 93005; 93970; 94640; 96361; 96365; 96367; 97161; 97165; 97530; 99285; A9270; G0378; J0456; J0692; J0696; J1644; J3480; J7030; J7120; Q9967

== ENCOUNTER 2024-01-13 10:32 | Emergency (ER) | payer MEDICARE, SELFPAY ==
--- NOTE | ~2024-01-13 | CT_ITS ---
EXAMINATION: CT brain wo con INDICATION: Head injury COMPARISON: None TECHNIQUE: Standard unenhanced head CT. The dose-length product (DLP) was 605.33 mGy-cm. The mA was a djusted according to patient size. Iterative reconstruction technique was employed. FINDINGS: No acute intraparenchymal hemorrhage. No evidence of mass lesion. No evidence of acute infa rction. There are areas of prior infarction in the bilateral occipital and parietal lobes. There is m oderate periventricular and subcortical hypodensity probably related to small vessel ischemic disease . There is moderate prominence of the sulci and ventricles related to cerebral atrophy. Intracranial calcified cerebral atherosclerosis is noted. No extra-axial collections. No mass effect or midline sh ift. Changes in the globes are likely from ocular lens surgery. There is mild mucosal thickening of t he paranasal sinuses. IMPRESSION: 1. Areas of prior infarction without acute intracranial abnormality. 2. Age related findings. Reviewed, dictated and finalized at location L. CLERK
[2024-01-13 10:33] VITALS: BP 123/56; PULSE 58; RESP 16; TEMP 36.3; O2SAT 97
--- NOTE | 2024-01-13 12:24 | ED.GENADULT ---
HPI - General Adult General Chief complaint: Fall Stated complaint: slid out of wheelchair at [place], no complaints Time Seen by Provider: 01/13/24 10:38 History of Present Illness HPI narrative: Patient is an 83-year-old female with history of dementia who presents ER after sliding out of her wheelchair at the [facility]. Per their protocol he is on blood thinner needs a CT scan of her head. No obvious trauma. Patient has no reports of pain. Related Data Home Medications Medication Instructions Recorded Confirmed atenolol 100 mg tablet 100 mg PO DAILY 09/12/21 12/30/23 levothyroxine 100 mcg tablet 100 mcg PO DAILY 09/12/21 12/30/23 duloxetine 30 mg capsule,delayed 30 mg PO DAILY 12/17/23 12/30/23 release losartan 100 mg tablet 100 mg DAILY 12/17/23 12/30/23 mirtazapine 15 mg tablet 15 mg PO HS 12/17/23 12/30/23 risperidone 0.25 mg tablet 0.25 mg PO HS 12/17/23 12/30/23 albuterol sulfate 90 mcg/actuation 1 puff inhalation QID PRN 12/30/23 12/30/23 aerosol inhaler Shortness Of Breath Allergies Allergy/AdvReac Type Severity Reaction Status Date / Time acetaminophen Allergy Unknown Verified 12/30/23 13:51 amlodipine [From Norvasc] Allergy Unknown Verified 12/30/23 13:51 ciprofloxacin Allergy Unknown Verified 12/30/23 13:51 ibuprofen Allergy Unknown Verified 12/30/23 13:51 lisinopril Allergy Unknown Verified 12/30/23 13:51 oxymorphone Allergy Unknown Verified 12/30/23 13:51 Penicillins Allergy Unknown Verified 01/04/24 09:26 Sulfa (Sulfonamide Allergy Unknown Verified 12/30/23 13:51 Antibiotics) sulfamethoxazole Allergy Unknown Verified 12/30/23 13:51 [From Sulfamethoxazole-Trimethoprim] trimethoprim Allergy Unknown Verified 12/30/23 13:51 [From Sulfamethoxazole-Trimethoprim] codeine sulfate Allergy Unknown Uncoded 12/17/23 10:38 hydrocodone compound Allergy Unknown Uncoded 12/17/23 10:38 hydrocodone-acetaminophen Allergy Unknown Uncoded 12/17/23 10:38 Review of Systems Review of Systems: ROS unobtainable: Yes unobtainable due to mental status PMFSH Past Medical History Medical History (Updated 01/13/24 @ 12:32 by Emerson Zarate MD) Anxiety Cerebrovascular accident Chronic obstructive pulmonary disease Dementia Hypothyroidism Paroxysmal atrial fibrillation Surgical History Surgical History (Updated 12/31/23 @ 13:25 by Deborah Garvin PA-C) Surgical history unknown Family History Family History (Updated 12/31/23 @ 13:25 by Deborah Garvin PA-C) Other Family history unknown Social History Social History (Updated 12/31/23 @ 13:25 by Deborah Garvin PA-C) Social History: Surrogate medical decision maker: Sanjay Mary, jesús. Code status: Do not resuscitate. Smoking status: Unknown if ever smoked Second hand tobacco smoke exposure: No Alcohol intake: never Substance use: never Substance use type: does not use Spiritual care concerns: No Exam Narrative: GENERAL: Well-appearing, well-nourished, and in no acute distress. HEAD: Normocephalic, atraumatic. EYES: PERRL and EOMI. ENT: Mucous membranes moist. CHEST: Clear to auscultation. No respiratory distress. HEART: Regular rate and rhythm. Normal peripheral pulses. ABDOMEN: Soft, nontender, nondistended. EXTREMITIES: Normal range of motion. No edema. SKIN: Warm, dry, no rash. NEURO: Alert and oriented x1. PSYCH: Normal mood and affect. Course Course Emergency Course: No evidence of trauma. CT scan without bleed. Discharge back to facility. Vital Signs Vital signs: Vital Signs Temperature 97.4 F L 01/13/24 10:33 Pulse Rate 58 L 01/13/24 10:33 Respiratory Rate 16 01/13/24 10:33 Blood Pressure 123/56 L 01/13/24 10:33 Pulse Oximetry 97 01/13/24 10:33 Oxygen Delivery Nasal Cannula 01/13/24 10:33 Oxygen Flow Rate 2 01/13/24 10:33 Temperature 97.4 F L 01/13/24 10:33 Pulse Rate 58 L 01/13/24 10:33 Respiratory Rate 16 01/13/24 1
[2024-01-13 12:35] VITALS: BP 127/76; PULSE 64; RESP 17; O2SAT 98
[2024-01-13 14:50] VITALS: BP 131/83; PULSE 69; RESP 16; TEMP 36.7; O2SAT 97
--- NOTE | 2024-01-13 14:52 | PC.NURSE ---
called [facility] @[phone] to give LON Chan report. all questions answered.
== END 2024-01-13 14:53 ==
PROVIDERS: Emergency Provider Emergency Medicine; PCP Physician Assistant
DX: Z04.3 Encounter for examination and observation following other accident (principal); F03.90 Unspecified dementia, unspecified severity, without behavioral disturbance, psychotic disturbance, mood disturbance, and anxiety; J44.9 Chronic obstructive pulmonary disease, unspecified; I48.0 Paroxysmal atrial fibrillation; E03.9 Hypothyroidism, unspecified; F41.9 Anxiety disorder, unspecified; Z66 Do not resuscitate; Z86.73 Personal history of transient ischemic attack (TIA), and cerebral infarction without residual deficits; Z79.01 Long term (current) use of anticoagulants; W05.0XXA Fall from non-moving wheelchair, initial encounter
CPT/HCPCS: 70450; 99284

== ENCOUNTER 2024-02-23 16:13 | Emergency (ER) | payer MEDICARE, MEDICAID, SELFPAY ==
[2024-02-23] VITALS (12 sets, daily range): BP systolic 144–163; BP diastolic 55–86; PULSE 60–66; RESP 13–28; TEMP 36.1; O2SAT 96–98
--- NOTE | ~2024-02-23 | CT_ITS ---
EXAMINATION: CT brain wo con DATE: 02/23/2024 16:40 INDICATION: Fall with right-sided head injury TECHNIQUE: Computed tomography (CT) of the head was performed without intravenous contrast. Sagittal and coronal reconstructions were performed. The mA was adjusted according to patient size. Iterative reconstruction technique was employed. The dose-length product was 681.00 mGy-cm. COMPARISON: head CT dated 01/13/2024 FINDINGS: No fracture. No acute intracranial hemorrhage, acute infarction or abnormal extra axial fluid collect ion. There are few small to moderate-sized regions of encephalomalacia consistent with chronic infarc ts in the medial left parieto-occipital region and in the bilateral temporal occipital regions. Small old lacunar infarct at the left thalamus. There is additional moderate scattered white matter hypoat tenuation consistent with chronic small vessel ischemic disease. Unchanged symmetric prominence of th e sulci and ventricles consistent with mild to moderate age-appropriate diffuse cerebral volume loss. No mass/mass effect. Changes of bilateral intraocular lens replacement. The orbits and mastoid air c ells are normal. Persistent prominent mucosal thickening in the right maxillary sinus with additional mild mucosal thickening the right sphenoid sinus. IMPRESSION: 1. No fracture or acute intracranial process. 2. Several scattered old infarcts including at the bilateral temporal occipital regions, the left par ieto-occipital region and small old lacunar infarct at the left thalamus. 3. Age-related changes including mild to moderate diffuse volume loss and moderate scattered white ma tter hypoattenuation consistent with chronic small vessel ischemic disease. Reviewed, dictated and finalized at location A. IMPRESSION: 1. No fracture or acute intracranial process. 2. Several scattered old infarcts including at the bilateral temporal occipital regions, the left parieto-occipital region and small old lacunar infarct at th e left thalamus. 3. Age-related changes including mild to moderate diffuse volume loss and moder ate scattered white matter hypoattenuation consistent with chronic small vessel ischemic disease.
--- NOTE | 2024-02-23 16:42 | ED.FALL ---
HPI - Fall General Chief Complaint: Fall Stated Complaint: fall Time Seen by Provider: 02/23/24 16:17 History of Present Illness HPI Narrative: Patient is an 83-year-old female who presents ER after a fall. Patient was lying in her bed that is foot off the ground. She rolled out and struck her right head on the ground. Patient has dementia. No reports of loss of consciousness. Patient has no complaints at this time. Patient was sent for CT scan by the facility. Patient does take Eliquis. Related Data Home Medications Medication Instructions Recorded Confirmed atenolol 100 mg tablet 100 mg PO DAILY 09/12/21 12/30/23 levothyroxine 100 mcg tablet 100 mcg PO DAILY 09/12/21 12/30/23 duloxetine 30 mg capsule,delayed 30 mg PO DAILY 12/17/23 12/30/23 release losartan 100 mg tablet 100 mg DAILY 12/17/23 12/30/23 mirtazapine 15 mg tablet 15 mg PO HS 12/17/23 12/30/23 risperidone 0.25 mg tablet 0.25 mg PO HS 12/17/23 12/30/23 albuterol sulfate 90 mcg/actuation 1 puff inhalation QID PRN 12/30/23 12/30/23 aerosol inhaler Shortness Of Breath Allergies Allergy/AdvReac Type Severity Reaction Status Date / Time acetaminophen Allergy Unknown Verified 12/30/23 13:51 amlodipine [From Norvasc] Allergy Unknown Verified 12/30/23 13:51 ciprofloxacin Allergy Unknown Verified 12/30/23 13:51 ibuprofen Allergy Unknown Verified 12/30/23 13:51 lisinopril Allergy Unknown Verified 12/30/23 13:51 oxymorphone Allergy Unknown Verified 12/30/23 13:51 Penicillins Allergy Unknown Verified 01/04/24 09:26 Sulfa (Sulfonamide Allergy Unknown Verified 12/30/23 13:51 Antibiotics) sulfamethoxazole Allergy Unknown Verified 12/30/23 13:51 [From Sulfamethoxazole-Trimethoprim] trimethoprim Allergy Unknown Verified 12/30/23 13:51 [From Sulfamethoxazole-Trimethoprim] codeine sulfate Allergy Unknown Uncoded 12/17/23 10:38 hydrocodone compound Allergy Unknown Uncoded 12/17/23 10:38 hydrocodone-acetaminophen Allergy Unknown Uncoded 12/17/23 10:38 Review of Systems Review of Systems: ROS unobtainable: Yes unobtainable due to mental status PMFSH Past Medical History Medical History (Updated 02/23/24 @ 16:59 by Emerson Zarate MD) Anxiety Cerebrovascular accident Chronic obstructive pulmonary disease Dementia Hypothyroidism Paroxysmal atrial fibrillation Surgical History Surgical History (Updated 12/31/23 @ 13:25 by Deborah Garvin PA-C) Surgical history unknown Family History Family History (Updated 12/31/23 @ 13:25 by Deborah Garvin PA-C) Other Family history unknown Social History Social History (Updated 12/31/23 @ 13:25 by Deborah Garvin PA-C) Social History: Surrogate medical decision maker: Sanjay Mary, jesús. Code status: Do not resuscitate. Smoking status: Unknown if ever smoked Second hand tobacco smoke exposure: No Alcohol intake: never Substance use: never Substance use type: does not use Spiritual care concerns: No Exam Narrative: GENERAL: Chronically ill-appearing, well-nourished, and in no acute distress. HEAD: Normocephalic, atraumatic. ENT: Mucous membranes moist. NECK: Supple. CHEST: Clear to auscultation. No respiratory distress. HEART: Regular rate and rhythm. Normal peripheral pulses. EXTREMITIES: Normal range of motion. No edema. no deformity. SKIN: Warm, dry, no rash. NEURO: Alert and oriented x1 PSYCH: Normal mood and affect. Course Course Emergency Course: Patient resting comfortably. No evidence of intracranial injury. No evidence of bony injury. discharge back to facility. Vital Signs Vital signs: Vital Signs Temperature 97.0 F L 02/23/24 16:12 Pulse Rate 65 02/23/24 16:12 Respiratory Rate 16 02/23/24 16:12 Blood Pressure 152/55 H 02/23/24 16:12 Pulse Oximetry 96 02/23/24 16:12 Oxygen Delivery Room Air 02/23/24 16:12 Temperature 97.0 F L 02/23/24 16:12 Pulse Rate 65 02/23/24 16:12 Resp
--- NOTE | 2024-02-23 19:17 | PC.NURSE ---
Assumed care of pt from LON Calderon at this time. Pt resting in bed awaitng transport back to facility.
--- NOTE | 2024-02-23 21:09 | PC.NURSE ---
Pt calling out for nurse. Pt wanted to get dressed and to know when she was going to go home. This RN and Francy RN assisted pt in getting dressed and readjusting pt in bed. Pt updated that we are still awaiting on EMS arrival and unaware of when they will be here.
== END 2024-02-23 21:34 ==
PROVIDERS: Emergency Provider Emergency Medicine; PCP Physician Assistant
DX: S09.90XA Unspecified injury of head, initial encounter (principal); W06.XXXA Fall from bed, initial encounter; F03.90 Unspecified dementia, unspecified severity, without behavioral disturbance, psychotic disturbance, mood disturbance, and anxiety; E03.9 Hypothyroidism, unspecified; I48.0 Paroxysmal atrial fibrillation
CPT/HCPCS: 70450; 99284

== ENCOUNTER 2024-07-11 01:44 | Emergency (ER) | payer MEDICARE, MEDICAID, SELFPAY ==
[2024-07-11] VITALS (9 sets, daily range): BP systolic 177–199; BP diastolic 88–101; PULSE 67–99; RESP 18–23; TEMP 36.6; O2SAT 95–100
--- NOTE | ~2024-07-11 | CT_ITS ---
EXAMINATION: CT cervical spine wo con DATE: 07/11/2024 02:24 INDICATION: Agitation. TECHNIQUE: Computed tomography (CT) of the cervical spine was performed without intravenous contrast. Automated exposure control and iterative reconstruction technique were employed. The dose-length pro duct was 140.00 mGy-cm. COMPARISON: None FINDINGS: There is a 12 x 14 mm mass in right parotid gland. There is mild emphysema. There is mild s carring at the lung apices. There is mild kyphosis of cervical spine. There is 4 degrees levocurvatur e of cervical spine. There is 2 mm anterolisthesis of C7 on T1. Vertebral body heights are normal. Th ere is mildly decreased disc height at C3-C4 and severely decreased disc height at C4-C5, C5-C6, and C6-C7. The following disc levels are specifically discussed: C2-C3: There is moderate right and mild left uncovertebral joint osteoarthritis. There is moderate ri ght and severe left facet joint osteoarthritis. There is mild right neural foraminal stenosis. There is no central canal stenosis. C3-C4: There is moderate bilateral uncovertebral joint osteoarthritis. There is severe bilateral face t joint osteoarthritis. There is mild bilateral neural foraminal stenosis. There is mild central salvador l stenosis. C4-C5: There is severe right and mild left uncovertebral joint osteoarthritis. There is severe bilate ral facet joint osteoarthritis. There is moderate bilateral neural foraminal stenosis. There is mild central canal stenosis. C5-C6: There is severe bilateral uncovertebral joint osteoarthritis. There is moderate bilateral face t joint osteoarthritis. There is moderate bilateral neural foraminal stenosis. There is mild central canal stenosis. C6-C7: There is severe bilateral uncovertebral joint osteoarthritis. There is severe bilateral facet joint osteoarthritis. There is mild right and moderate left neural foraminal stenosis. There is mild central canal stenosis. C7-T1: There is no uncovertebral joint osteoarthritis. There is severe bilateral facet joint osteoart hritis. There is mild bilateral neural foraminal stenosis. There is no central canal stenosis. IMPRESSION: 1. No fracture. 2. Severe cervical spondylosis. 3. Mild emphysema. 4. 12 x 14 mm right parotid mass. The differential diagnosis includes benign mixed tumor, Warthin henry or, reactive lymph node, and less likely primary malignancy or carlito metastatic disease. Reviewed, dictated and finalized at location A. IMPRESSION: 1. No fracture. 2. Severe cervical spondylosis. 3. Mild emphysema. 4. 12 x 14 mm right parotid mass. The differential diagnosis includes benign mi xed tumor, Warthin tumor, reactive lymph node, and less likely primary malignan cy or carlito metastatic disease.
--- NOTE | ~2024-07-11 | XR_ITS ---
EXAMINATION: XR chest 1V portable DATE: 07/11/2024 02:45 INDICATION: Chest pain. TECHNIQUE: A single frontal view of the chest was obtained on 2 radiographs. COMPARISON: Chest single view 12/31/2023 FINDINGS: There is mild atelectasis at the lung bases. No pleural effusion or pneumothorax. The heart size is normal. Surgical clips in the right upper quadrant are likely from cholecystectomy. IMPRESSION: 1. Mild atelectasis at the lung bases. Reviewed, dictated and finalized at location A.
--- NOTE | ~2024-07-11 | XR_ITS ---
EXAMINATION: XR pelvis 1-2V DATE: 07/11/2024 02:45 INDICATION: Left hip pain. TECHNIQUE: An anteroposterior view of the pelvis was obtained. COMPARISON: None. FINDINGS: There is lumbar levocurvature and severe spondylosis. No fracture. There is mild osteoarthr itis of the hips. IMPRESSION: 1. Mild osteoarthritis of the hips. Reviewed, dictated and finalized at location A.
--- NOTE | ~2024-07-11 | CT_ITS ---
EXAMINATION: CT brain wo con DATE: 07/11/2024 02:24 INDICATION: Agitation. TECHNIQUE: Computed tomography (CT) of the head was performed without intravenous contrast. The mA wa s adjusted according to patient size. Iterative reconstruction technique was employed. The dose-lengt h product was 605.33 mGy-cm. COMPARISON: Head CT 02/23/2024 FINDINGS: There are old infarcts in the temporal parietal occipital regions. Old infarcts in the thal ami. There are scattered areas of low attenuation in the cerebral white matter. There is no intracran ial hemorrhage, acute infarction, or abnormal intracranial mass lesion. There is ex vacuo dilatation of occipital horn of left lateral ventricle. There is mucosal thickening in the paranasal sinuses. Th ere are likely changes of ocular lens replacement surgeries. The mastoid air cells are normal. IMPRESSION: 1. Old infarcts in the bilateral temporal parietal occipital regions and thalami. 2. Moderate nonspecific cerebral white matter disease, which likely represents chronic small vessel i schemic disease. Reviewed, dictated and finalized at location A. IMPRESSION: 1. Old infarcts in the bilateral temporal parietal occipital regions and thalam i. 2. Moderate nonspecific cerebral white matter disease, which likely represents chronic small vessel ischemic disease.
--- NOTE | 2024-07-11 01:57 | ECG_ITS ---
Test Date: 2024-07-11 02:07:03 Measurements Intervals [place] Rate: 62 P: 70 [place]: 191 QRS: 20 QRSD: 92 T: 91 QT: 400 QTc: 409 Interpretive Statements SINUS RHYTHM NONSPECIFIC ST AND T-WAVE ABNORMALITY No previous ECG available for comparison Electronically Signed On 07-11-2024 10:23:10 CDT by Radha Nicholson M.D.
[2024-07-11] MEDS: HALOPERIDOL LACTATE 5 MG/ML VIAL IM (02:04)
[2024-07-11 02:11] LABS: Glucose Point of Care 131 mg/dl (65-105)
--- NOTE | 2024-07-11 02:34 | ED.GENADULT ---
HPI - General Adult General Chief complaint: Anxiety Stated complaint: AGITATED/ANXIOUS Time Seen by Provider: 07/11/24 01:49 History of Present Illness HPI narrative: This is an 83-year-old female with dementia presenting from skilled nursing for agitation. Per the skilled nursing she was playing in her own feces. She has been arguing with staff. She has been talking incessantly. She is given Ativan with no improvement in her symptoms. Patient has dementia at baseline is A&O x1. She has no fevers chills headache chest pain difficulty breathing abdominal pain nausea vomiting or diarrhea. She is complaining of left leg pain. Related Data Home Medications Medication Instructions Recorded Confirmed atenolol 100 mg tablet 100 mg PO DAILY 09/12/21 07/11/24 levothyroxine 100 mcg tablet 100 mcg PO DAILY 09/12/21 07/11/24 duloxetine 30 mg capsule,delayed 30 mg PO DAILY 12/17/23 07/11/24 release losartan 100 mg tablet 100 mg PO DAILY 12/17/23 07/11/24 mirtazapine 15 mg tablet 15 mg PO HS 12/17/23 07/11/24 risperidone 0.25 mg tablet 0.25 mg PO HS 12/17/23 07/11/24 albuterol sulfate 90 mcg/actuation 1 puff inhalation QID PRN 12/30/23 07/11/24 aerosol inhaler Shortness Of Breath alprazolam 0.5 mg tablet 0.5 mg PO DAILY 07/11/24 07/11/24 alprazolam 1 mg tablet 1 mg PO HS 07/11/24 07/11/24 apixaban 5 mg tablet (Eliquis) 5 mg PO BID 07/11/24 07/11/24 gabapentin 100 mg capsule 100 mg PO BID 07/11/24 07/11/24 omeprazole 20 mg capsule,delayed 20 mg PO DAILY 07/11/24 07/11/24 release Allergies Allergy/AdvReac Type Severity Reaction Status Date / Time acetaminophen Allergy Unknown Verified 07/11/24 05:28 amlodipine [From [facility]] Allergy Unknown Verified 07/11/24 05:28 ciprofloxacin Allergy Unknown Verified 07/11/24 05:28 ibuprofen Allergy Unknown Verified 07/11/24 05:28 lisinopril Allergy Unknown Verified 07/11/24 05:28 oxymorphone Allergy Unknown Verified 07/11/24 05:28 Penicillins Allergy Unknown Verified 07/11/24 05:28 Sulfa (Sulfonamide Allergy Unknown Verified 07/11/24 05:28 Antibiotics) sulfamethoxazole Allergy Unknown Verified 07/11/24 05:28 [From Sulfamethoxazole-Trimethoprim] trimethoprim Allergy Unknown Verified 07/11/24 05:28 [From Sulfamethoxazole-Trimethoprim] codeine sulfate Allergy Unknown Uncoded 07/11/24 05:28 hydrocodone compound Allergy Unknown Uncoded 07/11/24 05:28 hydrocodone-acetaminophen Allergy Unknown Uncoded 07/11/24 05:28 [facility] Past Medical History Medical History Anxiety Cerebrovascular accident Chronic obstructive pulmonary disease Dementia Hypothyroidism Paroxysmal atrial fibrillation Surgical History Surgical History Surgical history unknown Family History Family History Other Family history unknown Social History Social History Social History: Surrogate medical decision maker: Sanjay Mary, son. Code status: Do not resuscitate. Smoking status: Unknown if ever smoked Second hand tobacco smoke exposure: No Alcohol intake: never Substance use: never Substance use type: does not use Spiritual care concerns: No Exam Narrative: APPEARANCE: Patient is speaking almost nonstop. A&O x1 Head: atraumatic. EYES: EOMI, NOSE: Atraumatic NECK: Trachea midline RESPIRATORY: No increased rate of breathing CTAB CARDIOVASCULAR: RRR, no peripheral edema ABDOMINAL: Non-distended soft nontender no CVA tenderness MUSCULOSKELETAl: No obvious deformities NEURO: Alert. Cranial nerves 2-12 grossly intact. Sensation light touch, motor function cerebellar function intact for 4 extremities. No lateralizing signs to indicate CVA. SKIN:: Warm, dry. Normal color PSYCHIATRIC: Normal affect Course Vital Signs Vital signs: Vital Signs
--- NOTE | 2024-07-11 03:37 | PCRCNOTE ---
VBG has not been obtained yet due to nursing staff having issues with patients IV. RT will run the VBG when it is obtained by patients nurse.
[2024-07-11] MEDS: SODIUM CHLORIDE 0.9% IV 1,000 ML 999 ML IV CONT ×2 (04:18→05:57)
[2024-07-11 04:24] LABS: Device ROOM AIR; Fractional Inspired Oxygen 21 %; HCO3 VBG 27.9 mEq/l (24.0-30.0); PCO2 VBG 54.8 mmHg (42.0-48.0); pH VBG 7.325 (7.300-7.400)
[2024-07-11 04:26] LABS: Basophils Absolute Auto 0.1 K/mm3 (0.0-0.1); Eosinophils Absolute Auto 0.5 K/mm3 (0-0.3); Eosinophils Percent Auto 5.2 % (0-4.4); Hematocrit 40.7 % (37.0-47.0); Hemoglobin 12.5 g/dL (12.0-15.0); Immature Granulocyte Absolute 0.04 K/mm3 (0.00-0.031); Immature Granulocyte Percent A 0.4 % (0-0.5); Lymphocytes Absolute Auto 2.27 K/mm3 (0.9-3.2); Lymphocytes Percent Auto 22.3 % (18.3-44.2); Mean Corpuscular HGB Conc 30.7 g/dl (32-36); Mean Corpuscular Hemoglobin 28.9 pg (26-34); Mean Corpuscular Volume 94.2 fl (80-100); Mean Platelet Volume 11.9 fl (7.4-10.4); Monocytes Absolute Auto 0.9 K/mm3 (0.1-0.6); Monocytes Percent Auto 9.1 % (2.6-8.5); Neutrophils Absolute Auto 6.3 K/mm3 (1.3-6.7); Platelet Count Result 226 k/mm3 (150-375); Red Blood Count 4.32 M/mm3 (4.2-5.4); Red Cell Distribution Width 17.3 % (11.5-14.5); White Blood Count 10.2 K/mm3 (4.5-10.0)
[2024-07-11 04:40] LABS: Alanine Aminotransferase 11 U/L (6-35); Albumin Level 3.8 g/dL (3.5-5.1); Alkaline Phosphatase 103 U/L (38-126); Anion Gap 8 mmol/L (4-12); Aspartate Amino Transferase 19 U/L (14-36); Bilirubin,Total 0.3 mg/dL (0.2-1.3); Blood Urea Nitrogen 14 mg/dL (7-17); Calcium 8.9 mg/dL (8.4-10.2); Carbon Dioxide 30 mmol/L (22-30); Chloride 103 mmol/L (98-107); Estimated Glomerular Filt Rate 60; Glucose 102 mg/dL (65-110); Lactic Acid Reflex 2.6 mmol/L (0.7-2.0); Lipase 178 U/L (23-300); Magnesium 2.2 mg/dL (1.6-2.3); Phosphorus 3.4 mg/dL (2.5-4.5); Potassium 3.5 mmol/L (3.4-5.0); Sodium 141 mmol/L (137-145)
[2024-07-11 04:51] LABS: Troponin I < 0.012 ng/mL (0.000-0.034)
[2024-07-11 04:58] LABS: INR 0.9; Prothrombin Time 12.8 Seconds (11.1-14.7)
[2024-07-11 04:59] LABS: Partial Thromboplastin Time 28.9 Seconds (22.3-36.8)
[2024-07-11 05:08] LABS: Influenza A QL RT-PCR Negative (Negative); Influenza B QL RT-PCR Negative (Negative); RSV RNA, RT-PCR Negative (Negative); SARS-CoV-2 RNA PCR Negative (Negative)
[2024-07-11 05:26] LABS: Add Urine Microscopic? YES; Appearance Urine Cloudy (Clear); Bacteria Urine 4+ /hpf; Bilirubin Urine Negative (Negative); Blood Urine Negative (Negative); Color Urine Yellow (Yellow); Glucose Urine UA Negative (Negative); Ketones Urine Negative (Negative); Leukocyte Esterase Ur 3+ LEU/UL (Negative); Mucus Urine Present /lpf; Need Manual Microscopic Reviewed; Nitrate Urine Positive (Negative); Non Pathogenic Casts 0-2; Protein Urine Negative (Negative); RBC Urine 0-2 /hpf (0-2); Specific Grav Ur 1.009 (1.001-1.035); Squamous Epithelial Cell Urine None Seen /hpf (Few); Urobilinogen Urine 0.2 mg/dL (<2.0); WBC Urine >100 /hpf (0-3)
[2024-07-11 05:33] LABS: Ethanol < 10 mg/dL (<10)
[2024-07-11 05:42] LABS: Amphetamine Screen Urine Negative (Negative); Barbiturate Screen Urine Negative (Negative); Benzodiazepines Screen Urine Positive (Negative); Cannabinoid Screen Urine Negative (Negative); Cocaine Screen Urine Negative (Negative); Methadone Screen Urine Negative (Negative); Opiate Screen Urine Negative (Negative); Phencyclidine Screen Urine Negative (Negative)
[2024-07-11 05:44] LABS: Free T4 Free Thyroxine Reflex 1.11 ng/dL (0.78-2.19)
[2024-07-11 06:40] LABS: Total Triiodothyronine (T3) 1.09 NG/ML (0.97-1.69)
[2024-07-11 07:23] LABS: Reflex Lactic Acid Yes or No Add Lactic
--- NOTE | 2024-07-11 08:53 | PC.NURSE ---
RN called [facility] spoke with Lakeisha informing pt on her way back. No change in condition
== END 2024-07-11 08:55 ==
PROVIDERS: Emergency Provider Emergency Medicine; PCP Physician Assistant
DX: N39.0 Urinary tract infection, site not specified (principal); F03.911 Unspecified dementia, unspecified severity, with agitation; Z20.822 Contact with and (suspected) exposure to COVID-19; I48.0 Paroxysmal atrial fibrillation; J44.9 Chronic obstructive pulmonary disease, unspecified; E03.9 Hypothyroidism, unspecified; Z66 Do not resuscitate; Z86.73 Personal history of transient ischemic attack (TIA), and cerebral infarction without residual deficits; Z79.01 Long term (current) use of anticoagulants; Z79.899 Other long term (current) drug therapy
CPT/HCPCS: 36415; 70450; 71045; 72125; 72170; 80053; 80307; 81001; 82803; 82948; 83605; 83690; 83735; 84100; 84439; 84443; 84480; 84484; 85025; 85610; 85730; 87040; 87077; 87086; 87088; 87147; 87181; 87186; 87637; 93005; 96361; 96365; 96372; 99284; J0696; J1630; J7030

== ENCOUNTER 2024-07-28 09:04 | Observation (INO) | payer OTHER, MEDICARE, SELFPAY ==
[2024-07-28] VITALS (15 sets, daily range): BP systolic 85–133; BP diastolic 51–68; PULSE 48–66; RESP 11–18; TEMP 35–36.6; O2SAT 97–99; BMI 23.5
--- NOTE | ~2024-07-28 | US_ITS ---
EXAMINATION: US arterial duplex [facility] DATE: 07/29/2024 12:58 INDICATION: Peripheral arterial disease. TECHNIQUE: Multiple grayscale and Doppler ultrasound images of the left lower limb were obtained. COMPARISON: None FINDINGS: There are parvus tardus waveforms in left lower limb. The systolic velocity is 31 cm/s in l eft common femoral artery, 26 cm/s in profunda femoral artery, 30 cm/s in proximal superficial femora l artery, 15 cm/s in mid superficial femoral artery, 47 cm/s in distal superficial femoral artery, 12 cm/s in proximal popliteal artery, 18 cm/s in distal popliteal artery, 7 cm/s in posterior tibial ar maria alejandra, 10 cm/s in peroneal artery, 12 cm/s in anterior tibial artery, and 6 cm/s in dorsal pedis. IMPRESSION: 1. Low velocity and abnormal waveform in left common femoral artery, likely secondary to moderate to severe pelvic artery stenosis. 2. Multifocal velocity gradient abnormality in left lower limb, consistent with multifocal moderate t o severe arterial stenosis. Reviewed, dictated and finalized at location A. IMPRESSION: 1. Low velocity and abnormal waveform in left common femoral artery, likely sec ondary to moderate to severe pelvic artery stenosis. 2. Multifocal velocity gradient abnormality in left lower limb, consistent with multifocal moderate to severe arterial stenosis.
--- NOTE | ~2024-07-28 | CT_ITS ---
EXAMINATION: CT abdomen pelvis wo con DATE: 07/28/2024 12:09 INDICATION: Acute renal failure. Diarrhea. Gastrointestinal bleed. TECHNIQUE: Computed tomography (CT) of the abdomen and pelvis was performed without intravenous contr ast. Automated exposure control and iterative reconstruction technique were employed. The dose-length product was 545.91 mGy-cm. COMPARISON: Chest CT dated 01/02/2024 FINDINGS: There is bandlike discoid atelectasis in the lingula and bilateral lower lobes. Heart size is normal. Atherosclerotic coronary artery calcific lesion. No pericardial or pleural effusion. Small sliding-t ype hiatal hernia. Chronic dilation of the common bile duct which measures up to 13 mm in diameter li linsey related to prior cholecystectomy with surgical clips at the gallbladder fossa liver, spleen, kim creas and bilateral adrenal glands are normal. There are bilateral low-attenuation renal cysts the la rgest on the right measuring 1.7 cm. No hydronephrosis. There is fluid throughout the colon consisten t with reported history of diarrhea. Bowels are otherwise unremarkable with no obstruction. The appen dariusz is not visualized. No pericecal inflammatory change to suggest acute appendicitis. Bladder is nor mal. The uterus is not identified and has likely been surgically resected. No free intraperitoneal ga s or fluid. No pathologically enlarged abdominal or pelvic lymphadenopathy. There is calcified athero sclerosis of the aorta and many of the other arteries. This appears likely hemodynamically significan t at the left common iliac artery. Chronic mild T11 and T12 compression fractures. Severe lumbar spon dylosis. IMPRESSION: 1. Fluid throughout the colon consistent with nonspecific diarrhea. No other acute intra-abdominal/pe lvic process. 2. Small sliding-type hiatal hernia. 2. Likely hemodynamically significant stenosis at the left common iliac artery. Reviewed, dictated and finalized at location A. IMPRESSION: 1. Fluid throughout the colon consistent with nonspecific diarrhea. No other ac patricia intra-abdominal/pelvic process. 2. Small sliding-type hiatal hernia. 2. Likely hemodynamically significant stenosis at the left common iliac artery.
--- NOTE | 2024-07-28 09:23 | ECG_ITS ---
Test Date: 2024-07-28 09:17:25 Measurements Intervals [place] Rate: 49 P: 76 [place]: 234 QRS: 4 QRSD: 106 T: 81 QT: 470 QTc: 425 Interpretive Statements SINUS BRADYCARDIA WITH FIRST DEGREE AV BLOCK POSSIBLE LEFT ATRIAL ENLARGEMENT VOLTAGE CRITERIA FOR LVH ST-T WAVE ABNORMALITY IN LATERAL LEADS- CONSIDER ISCHEMIA BASELINE ARTIFACT- I, II, III, AVR, AVL, AVF, V2 ABNORMAL ECG Compared to ECG 07/11/2024 02:07:03 HEART RATE HAS DECREASED Electronically Signed On 07-28-2024 09:37:40 CDT by Corye Mcnamara D.O.
--- NOTE | 2024-07-28 09:36 | ED.GIBLEED ---
HPI - GI Bleed General Chief complaint: GI Bleed <Amber Rapp PA-C - Last Filed: 07/28/24 18:51> Stated complaint: lethargic, coffee ground emesis <FAISAL Moreau Last Filed: 07/28/24 18:51> Time Seen by Provider: 07/28/24 09:16 <Amber Rapp PA-C - Last Filed: 07/28/24 18:51> Source: patient <FAISAL Moreau Last Filed: 07/28/24 18:51> Mode of arrival: EMS <FAISAL Moreau Last Filed: 07/28/24 18:51> Limitations: dementia <FAISAL Mroeau Last Filed: 07/28/24 18:51> History of Present Illness HPI Narrative: This is a 83 year old female that presents to the ER via EMS from facility for lethargy. Staff reports she has been lethargic today. Noted to have coffee ground emesis. Unable to obtain much further history due to dementia. She does endorse some abdominal discomfort. <Amber Rapp PA-C - Last Filed: 07/28/24 18:51> Related Data Home medications: Home Medications Medication Instructions Recorded Confirmed atenolol 100 mg tablet 100 mg PO DAILY 09/12/21 07/28/24 levothyroxine 100 mcg tablet 100 mcg PO DAILY 09/12/21 07/28/24 duloxetine 30 mg capsule,delayed 30 mg PO DAILY 12/17/23 07/28/24 release losartan 100 mg tablet 100 mg PO DAILY 12/17/23 07/28/24 mirtazapine 15 mg tablet 15 mg PO HS 12/17/23 07/28/24 risperidone 0.25 mg tablet 0.25 mg PO HS 12/17/23 07/28/24 albuterol sulfate 90 mcg/actuation 1 puff inhalation QID PRN 12/30/23 07/28/24 aerosol inhaler Shortness Of Breath alprazolam 0.5 mg tablet 0.5 mg PO DAILY 07/11/24 07/28/24 alprazolam 1 mg tablet 1 mg PO HS 07/11/24 07/28/24 apixaban 5 mg tablet (Eliquis) 5 mg PO BID 07/11/24 07/28/24 gabapentin 100 mg capsule 100 mg PO BID 07/11/24 07/28/24 omeprazole 20 mg capsule,delayed 20 mg PO DAILY 07/11/24 07/28/24 release <FAISAL Moreau Last Filed: 07/28/24 18:51> Allergies/Adverse reactions: Allergies Allergy/AdvReac Type Severity Reaction Status Date / Time acetaminophen Allergy Unknown Verified 07/28/24 09:25 amlodipine [From Norvasc] Allergy Unknown Verified 07/28/24 09:25 ciprofloxacin Allergy Unknown Verified 07/28/24 09:25 ibuprofen Allergy Unknown Verified 07/28/24 09:25 lisinopril Allergy Unknown Verified 07/28/24 09:25 oxymorphone Allergy Unknown Verified 07/28/24 09:25 Penicillins Allergy Unknown Verified 07/28/24 09:25 Sulfa (Sulfonamide Allergy Unknown Verified 07/28/24 09:25 Antibiotics) sulfamethoxazole Allergy Unknown Verified 07/28/24 09:25 [From Sulfamethoxazole-Trimethoprim] trimethoprim Allergy Unknown Verified 07/28/24 09:25 [From Sulfamethoxazole-Trimethoprim] codeine sulfate Allergy Unknown Uncoded 07/28/24 09:25 hydrocodone compound Allergy Unknown Uncoded 07/28/24 09:25 hydrocodone-acetaminophen Allergy Unknown Uncoded 07/28/24 09:25 <FAISAL Moreau Last Filed: 07/28/24 18:51> Review of Systems Review of Systems: ROS unobtainable: Yes unobtainable due to mental status <FAISAL Moreau Last Filed: 07/28/24 18:51> [facility] Past Medical History Medical History: Medical History (Updated 07/28/24 @ 16:57 by Jenae Green, HARRY) Anxiety and depression Atherosclerotic PVD with intermittent claudication Atrial fibrillation Cerebrovascular accident CKD (chronic kidney disease) COPD (chronic obstructive pulmonary disease) Dementia Fibromyalgia HTN (hypertension) Hypothyroidism Macular degeneration Paroxysmal atrial fibrillation Pulmonary embolism <FAISAL Moreau Last Filed: 07/28/24 18:51> Surgical History Surgical History: Surgical History Surgical history unknown <Amber Rapp PA-C - Last Filed: 07/28/24 18:51> Family History Family History: Family History Other Family history unknown <Amber Rapp PA-C -
[2024-07-28 09:52] LABS: Basophils Absolute Auto 0.1 K/mm3 (0.0-0.1); Basophils Percent Auto 0.5 % (0.2-1.2); Eosinophils Absolute Auto 0.1 K/mm3 (0-0.3); Eosinophils Percent Auto 0.5 % (0-4.4); Hematocrit 49.9 % (37.0-47.0); Hemoglobin 15.4 g/dL (12.0-15.0); Immature Granulocyte Absolute 0.07 K/mm3 (0.00-0.031); Immature Granulocyte Percent A 0.4 % (0-0.5); Lymphocytes Absolute Auto 1.84 K/mm3 (0.9-3.2); Mean Corpuscular HGB Conc 30.9 g/dl (32-36); Mean Corpuscular Hemoglobin 29.1 pg (26-34); Mean Corpuscular Volume 94.3 fl (80-100); Mean Platelet Volume 12.2 fl (7.4-10.4); Monocytes Percent Auto 6.2 % (2.6-8.5); Neutrophils Absolute Auto 13.6 K/mm3 (1.3-6.7); Neutrophils Percent Auto 81.4 % (45.5-73.1); Platelet Count Result 386 k/mm3 (150-375); Red Blood Count 5.29 M/mm3 (4.2-5.4); Red Cell Distribution Width 19.1 % (11.5-14.5); White Blood Count 16.7 K/mm3 (4.5-10.0)
[2024-07-28 10:40] LABS: INR 1.1; Prothrombin Time 14.5 Seconds (11.1-14.7)
[2024-07-28] MEDS: PANTOPRAZOLE SODIUM IV 40 MG VIAL 80 MG IV PUSH (10:40)
[2024-07-28 10:41] LABS: Partial Thromboplastin Time 37.5 Seconds (22.3-36.8)
[2024-07-28 10:53] LABS: CRP 1.5 mg/dL (<1.0)
[2024-07-28 11:14] LABS: Alanine Aminotransferase 9 U/L (6-35); Albumin Level 4.6 g/dL (3.5-5.1); Alkaline Phosphatase 98 U/L (38-126); Anion Gap 22 mmol/L (4-12); Aspartate Amino Transferase 16 U/L (14-36); Bilirubin,Total 0.5 mg/dL (0.2-1.3); Blood Urea Nitrogen 60 mg/dL (7-17); Calcium 9.4 mg/dL (8.4-10.2); Carbon Dioxide 10 mmol/L (22-30); Chloride 105 mmol/L (98-107); Estimated CRCL calculation 5 ml/min; Estimated Glomerular Filt Rate 5; Glucose 118 mg/dL (65-110); Potassium 3.8 mmol/L (3.4-5.0); Sodium 137 mmol/L (137-145)
--- NOTE | 2024-07-28 11:18 | PC.NURSE ---
Lab notified RN that they did not have enough stool to run the culture along with the C-Diff.
--- NOTE | 2024-07-28 11:31 | PC.NURSE ---
1131 [facility] med called best they can do is 1600 on 07-29-24
--- NOTE | 2024-07-28 11:45 | PC.NURSE ---
Performed bladder scan, scanner showed 4ML
[2024-07-28 12:02] LABS: Toxigenic C. Diff NEGATIVE (NEGATIVE)
--- NOTE | 2024-07-28 13:17 | PM.IMHP ---
H&P: HPI History of Present Illness Date/Time: 07/28/24 13:17 Chief Complaint: Lethargy, Coffee Ground Emesis Narrative: 83 y/o F presents here with lethargy and coffee ground emesis with PMH of dementia, COPD, fibromyalgia, and CKD. The patient presents here from [facility] via EMS for further evaluation of lethargy, coffee-ground emesis, and abdominal discomfort. Patient unable to contribute meaningfully to HPI due to advanced dementia. History obtained through chart review, family interview, and patient exam. Staff noted today that patient appeared more lethargic. This was accompanied by nausea and vomiting with coffee-ground appearance to emesis. Family reports no complaints that senior care has reported to them. Patient has told family lately that she has not been as hungry/has had poor appetite. Initial VS at presentation: 96.5? F, HR 52, RR 16, 112/51, and 97% on RA ED workup showed: WBC 16.7, hemoglobin 15.4, platelet count 386, creatinine 7.1 and GFR 5 (previously 0.9 and GFR 60 on 07/11/2024), CRP 1.5, C diff negative. CT of the abdomen/pelvis showed fluid throughout the colon consistent with nonspecific diarrhea, no other acute intra-abdominal/pelvic process, small sliding type hiatal hernia, and likely hemodynamically significant stenosis at the left common iliac artery. Review of Systems Review of Systems: ROS unobtainable: Yes unobtainable due to mental status (Dementia, limited) [facility] Past Medical History Medical History (Updated 07/28/24 @ 16:57 by Jenae Green APRN) Anxiety and depression Atherosclerotic PVD with intermittent claudication Atrial fibrillation Cerebrovascular accident CKD (chronic kidney disease) COPD (chronic obstructive pulmonary disease) Dementia Fibromyalgia HTN (hypertension) Hypothyroidism Macular degeneration Paroxysmal atrial fibrillation Pulmonary embolism Surgical History Surgical History Surgical history unknown Family History Family History Other Family history unknown Social History Social History Social History: Surrogate medical decision maker: Sanjay Mary, son. Code status: Do not resuscitate. Smoking packs per day: 0.5 Smoking cigarettes per day: 10.0 Smoking status: Former smoker Second hand tobacco smoke exposure: No Alcohol intake: never Substance use: never Substance use type: does not use Spiritual care concerns: No Meds Home Medications and Allergies Home Medications Medication Instructions Recorded Confirmed Type atenolol 100 mg tablet 100 mg PO DAILY 09/12/21 07/28/24 History levothyroxine 100 mcg tablet 100 mcg PO DAILY 09/12/21 07/28/24 History duloxetine 30 mg capsule,delayed 30 mg PO DAILY 12/17/23 07/28/24 History release losartan 100 mg tablet 100 mg PO DAILY 12/17/23 07/28/24 History mirtazapine 15 mg tablet 15 mg PO HS 12/17/23 07/28/24 History risperidone 0.25 mg tablet 0.25 mg PO HS 12/17/23 07/28/24 History albuterol sulfate 90 mcg/actuation 1 puff inhalation QID PRN 12/30/23 07/28/24 History aerosol inhaler Shortness Of Breath guaifenesin 600 mg tablet, 600 mg PO Q12HR #0 tabs 01/06/24 07/28/24 Rx extended release 12 hr (Mucus Relief ER) tolnaftate 1 % topical powder 1 applic topical Q12HR #0 grams 01/06/24 07/28/24 Rx alprazolam 0.5 mg tablet 0.5 mg PO DAILY 07/11/24 07/28/24 History alprazolam 1 mg tablet 1 mg PO HS 07/11/24 07/28/24 History apixaban 5 mg tablet (Eliquis) 5 mg PO BID 07/11/24 07/28/24 History gabapentin 100 mg capsule 100 mg PO BID 07/11/24 07/28/24 History omeprazole 20 mg capsule,delayed 20 mg PO DAILY 07/11/24 07/28/24 History release Allergies Allergy/AdvReac Type Severity Reaction Status Date / Time acetaminophen Allergy Unknown Verified 07/28/24 09:25 amlodipine [From Jarett
[2024-07-28 14:13] LABS: Add Urine Microscopic? YES; Appearance Urine Cloudy (Clear); Bacteria Urine None Seen /hpf; Bilirubin Urine Negative (Negative); Blood Urine Negative (Negative); Color Urine Dark Yellow (Yellow); Glucose Urine UA Negative (Negative); Hyaline Casts Urine Present /lpf; Ketones Urine Trace mg/dL (Negative); Leukocyte Esterase Ur 1+ LEU/UL (Negative); Nitrate Urine Negative (Negative); Non Pathogenic Casts >20; Protein Urine 2+ mg/dL (Negative); Specific Grav Ur 1.019 (1.001-1.035); Squamous Epithelial Cell Urine Occasional /hpf (Few); Urobilinogen Urine 0.2 mg/dL (<2.0); WBC Urine 21-50 /hpf (0-3)
[2024-07-28] MEDS: LACTATED RINGERS 1,000 ML 100 ML IV CONT (15:58)
[2024-07-28] MEDS: GABAPENTIN 100 MG CAPSULE PO (17:39)
[2024-07-28] MEDS: MIRTAZAPINE 15 MG TABLET PO (20:07)
[2024-07-28] MEDS: risperiDONE 0.25 MG TABLET PO (20:07)
[2024-07-28] MEDS: guaiFENesin 12 HR 600 MG TABCR PO (20:07)
[2024-07-28] MEDS: TOLNAFTATE 1% POWDER 45 GM BTL 1 APPLIC TOPICAL (20:07)
[2024-07-28] MEDS: ALPRAZolam (*CRX) 0.5 MG TABLET 1 MG PO (20:07)
[2024-07-29] VITALS (7 sets, daily range): BP systolic 82–116; BP diastolic 40–72; PULSE 52–60; RESP 16–18; TEMP 36.6; O2SAT 93–98
[2024-07-29] MEDS: LACTATED RINGERS 1,000 ML 100 ML IV CONT (03:32)
[2024-07-29 05:02] LABS: Basophils Absolute Auto 0.1 K/mm3 (0.0-0.1); Basophils Percent Auto 0.8 % (0.2-1.2); Eosinophils Absolute Auto 0.3 K/mm3 (0-0.3); Eosinophils Percent Auto 2.2 % (0-4.4); Hematocrit 39.2 % (37.0-47.0); Hemoglobin 12.3 g/dL (12.0-15.0); Immature Granulocyte Absolute 0.06 K/mm3 (0.00-0.031); Immature Granulocyte Percent A 0.4 % (0-0.5); Lymphocytes Absolute Auto 2.98 K/mm3 (0.9-3.2); Lymphocytes Percent Auto 21.6 % (18.3-44.2); Mean Corpuscular HGB Conc 31.4 g/dl (32-36); Mean Corpuscular Hemoglobin 29.1 pg (26-34); Mean Corpuscular Volume 92.7 fl (80-100); Mean Platelet Volume 12.3 fl (7.4-10.4); Monocytes Absolute Auto 1.2 K/mm3 (0.1-0.6); Monocytes Percent Auto 8.6 % (2.6-8.5); Neutrophils Absolute Auto 9.2 K/mm3 (1.3-6.7); Neutrophils Percent Auto 66.4 % (45.5-73.1); Platelet Count Result 269 k/mm3 (150-375); Red Blood Count 4.23 M/mm3 (4.2-5.4); Red Cell Distribution Width 18.5 % (11.5-14.5); White Blood Count 13.8 K/mm3 (4.5-10.0)
[2024-07-29 05:06] LABS: Alanine Aminotransferase 10 U/L (6-35); Albumin Level 3.4 g/dL (3.5-5.1); Alkaline Phosphatase 75 U/L (38-126); Anion Gap 14 mmol/L (4-12); Aspartate Amino Transferase 17 U/L (14-36); Bilirubin,Total 0.3 mg/dL (0.2-1.3); Blood Urea Nitrogen 56 mg/dL (7-17); Calcium 8.6 mg/dL (8.4-10.2); Carbon Dioxide 11 mmol/L (22-30); Chloride 112 mmol/L (98-107); Estimated CRCL calculation 6 ml/min; Estimated Glomerular Filt Rate 8; Glucose 79 mg/dL (65-110); Potassium 4.2 mmol/L (3.4-5.0); Sodium 137 mmol/L (137-145)
--- NOTE | 2024-07-29 06:51 | PM.IMPN ---
Progress Note: A&P Assessment and Plan (1) Coffee ground emesis: Code(s): K92.0 - Hematemesis Status: Acute Assessment and Plan: - CT abd/pelvis 1. Fluid throughout the colon consistent with nonspecific diarrhea. No other acute intra-abdominal/pelvic process. 2. Small sliding-type hiatal hernia. 2. Likely hemodynamically significant stenosis at the left common iliac artery. - Hgb 15.4 - pantoprazole 80 mg, then 40 daily IVP - patient is comfort measures per family, okay with abx, fluids, and PPI. No blood transfusions. - monitor cbc - IV fluids (2) Acute renal failure: Qualifiers: Acute renal failure type: unspecified Qualified Code(s): N17.9 - Acute kidney failure, unspecified Code(s): N17.9 - Acute kidney failure, unspecified Status: Acute Assessment and Plan: - creatinine 7.1 and GFR 5, previously 0.9 and GFR 60 on 07/11/2024 - Creatinine 5.4 after IVF - hx of CKD - IV fluids: 1.9L bolus, then 100 mL/hr - suspect prerenal related to hypovolemia given cbc heme concentrated and evidence of N/V and diarrhea. - UA equivocal for UTI, may be contaminated (occasional epithelial cells), follow UC. adding ceftriaxone due to leukocytosis. - trend renal function and monitor I&Os - trend electrolytes, correct as needed (3) Diarrhea: Qualifiers: Diarrhea type: presumed infectious Qualified Code(s): R19.7 - Diarrhea, unspecified Code(s): R19.7 - Diarrhea, unspecified Status: Acute Assessment and Plan: - CT showing diarrhea without evidence of colitis - c. diff negative, will add stool culture - IV fluids - consider Imodium if patient exceeds 5+ stools in 12 hours (4) HTN (hypertension): Qualifiers: Hypertension type: primary hypertension Qualified Code(s): I10 - Essential (primary) hypertension Code(s): I10 - Essential (primary) hypertension Status: Chronic Assessment and Plan: - chronic, currently 109/63. Soft since arrival ranging from 85/56 to 118/53. - home medications: Hold losartan. Continue atenolol. - monitor (5) Arterial disease: Code(s): I77.9 - Disorder of arteries and arterioles, unspecified Status: Acute Assessment and Plan: Left common iliac with likely hemodynamically significant stenosis On Eliquis. Will add statin after discussion with family Lipid panel ordered Plan Care coordination consulted for assistance with discussing palliative care versus hospice care. Diet: Heart healthy GI Prophylaxis: Pantoprazole DVT Prophylaxis: SCDs if tolerated, hold Eliquis Lines: Peripheral Code Status: DNR/comfort measures. Okay with fluids, antibiotics, and PPI. No blood transfusions. Subjective Date/time seen: 07/29/24 06:51 Interval history: 83 y/o F presents here with lethargy and coffee ground emesis with PMH of dementia, COPD, fibromyalgia, and CKD. The patient presents here from [facility] via EMS for further evaluation of lethargy, coffee-ground emesis, and abdominal discomfort. 07/29: Review of Systems Review of Systems: ROS unobtainable: Yes unobtainable due to mental status (Dementia, limited) Exam Narrative: General: well appearing, appears stated age. HEENT: normocephalic, atraumatic. Mucous membranes moist. EOMI, PERRLA, bilateral sclera anicteric, no conjunctival injection. Neck supple without JVD, lymphadenopathy, or bruit. Respiratory: clear to ascultation bilaterally. No rales/rhonic/wheezes. Cardiovascular: Regular rate and rhythm, normal S1-S2 upon ascultation. No murmurs, rubs, or clicks. PMI is nondisplaced, capillary refill less than 3 second. Abdomen: Soft, round, no pulsatile masses, nondistended and nontender. No rebound, no guarding. No CVA tenderness, no hepatosplenomegaly. Bowel sounds present to all four quadrants. No high pitch or tinkling sounds, resonant to percussion. Extremities: No cyanos
[2024-07-29] MEDS: LEVOTHYROXINE SODIUM 100 MCG TABLET PO (07:08)
[2024-07-29 08:10] LABS: Cholesterol 135 mg/dL (0-200); HDL Direct 37 mg/dL; Triglycerides 204 mg/dL (<150)
[2024-07-29 08:21] LABS: LDL Cholesterol Direct 67 mg/dL
[2024-07-29] MEDS: GABAPENTIN 100 MG CAPSULE PO (09:00)
[2024-07-29] MEDS: DULoxetine HCL 30 MG CAPSULE.DR PO (09:00)
[2024-07-29] MEDS: atenoloL 50 MG TABLET 100 MG PO (09:00)
[2024-07-29] MEDS: guaiFENesin 12 HR 600 MG TABCR PO (09:07)
[2024-07-29] MEDS: ALPRAZolam (*CRX) 0.5 MG TABLET PO (09:07)
[2024-07-29] MEDS: PANTOPRAZOLE SODIUM IV 40 MG VIAL IV PUSH (09:10)
[2024-07-29] MEDS: TOLNAFTATE 1% POWDER 45 GM BTL 1 APPLIC TOPICAL (09:10)
--- NOTE | 2024-07-29 10:53 | PM.TDS ---
Transfer Discharge Sum: Prov Provider Date of admission: 07/28/24 13:45 Primary care physician: Ayaz Castro, PA Admitting clinician: Von Alcaraz MD Consults: 07/28/24 Care Coordination Consult Routine Reason for Consult:: Hospice Referral Additional Comments: hospice vs palliative care Receiving physician/facility: [facility]. Accepting Dr. Patel DS: Admitting Diagnosis Discharge Date 07/29/24 Admitting Diagnosis Concerns of coffee-ground emesis DS: Discharge Diagnosis Discharge Diagnosis (1) Arterial occlusion, lower extremity: Code(s): I70.209 - Unspecified atherosclerosis of [place] arteries of extremities, unspecified extremity Status: Acute Assessment and Plan: CT abd/pelvis shows likely hemodynamically significant stenosis at left common iliac. On exam I cannot palpate nor doppler posterior pulses to her left foot. Left foot is dusky, cold, and painful to light touch. Pulse ox reading on left foot is 66% versus right foot 85%. Bilateral upper extremities have pulse ox reading of 95%. Started on heparin gtt Arterial duplex ordered Discussed care with vascular surgery at [facility] [address] Valentino Patient to transfer for further intervention (2) Coffee ground emesis: Code(s): K92.0 - Hematemesis Status: Acute Assessment and Plan: - CT abd/pelvis 1. Fluid throughout the colon consistent with nonspecific diarrhea. No other acute intra-abdominal/pelvic process. 2. Small sliding-type hiatal hernia. 2. Likely hemodynamically significant stenosis at the left common iliac artery. - Hgb 15.4 - pantoprazole 80 mg, then 40 daily IVP - patient is comfort measures per family, okay with abx, fluids, and PPI. No blood transfusions. - monitor cbc - IV fluids (3) Acute renal failure: Qualifiers: Acute renal failure type: unspecified Qualified Code(s): N17.9 - Acute kidney failure, unspecified Code(s): N17.9 - Acute kidney failure, unspecified Status: Acute Assessment and Plan: - creatinine 7.1 and GFR 5, previously 0.9 and GFR 60 on 07/11/2024 - hx of CKD - IV fluids: 1.9L bolus, then 100 mL/hr - suspect prerenal related to hypovolemia given cbc heme concentrated and evidence of N/V and diarrhea. - UA equivocal for UTI, may be contaminated (occasional epithelial cells), follow UC. adding ceftriaxone due to leukocytosis. - trend renal function and monitor I&Os - trend electrolytes, correct as needed (4) Diarrhea: Qualifiers: Diarrhea type: presumed infectious Qualified Code(s): R19.7 - Diarrhea, unspecified Code(s): R19.7 - Diarrhea, unspecified Status: Acute Assessment and Plan: - CT showing diarrhea without evidence of colitis - c. diff negative, will add stool culture - IV fluids - consider Imodium if patient exceeds 5+ stools in 12 hours (5) HTN (hypertension): Qualifiers: Hypertension type: primary hypertension Qualified Code(s): I10 - Essential (primary) hypertension Code(s): I10 - Essential (primary) hypertension Status: Chronic Assessment and Plan: - chronic, currently 109/63. Soft since arrival ranging from 85/56 to 118/53. - home medications: Hold losartan. Continue atenolol. - monitor Transfer Discharge Sum: Med Medications Active and Home Medications: Home Medications atenolol 100 mg tablet 100 mg PO DAILY 09/12/21 [History Confirmed 07/28/24] levothyroxine 100 mcg tablet 100 mcg PO DAILY 09/12/21 [History Confirmed 07/28/24] duloxetine 30 mg capsule,delayed release 30 mg PO DAILY 12/17/23 [History Confirmed 07/28/24] losartan 100 mg tablet 100 mg PO DAILY 12/17/23 [History Confirmed 07/28/24] mirtazapine 15 mg tablet 15 mg PO HS 12/17/23 [History Confirmed 07/28/24] risperidone 0.25 mg tablet 0.25 mg PO HS 12/17/23 [History Confirmed 07/28/24] albuterol sulfate 90 mcg/actuation aerosol inhaler 1 puff inhalation QID PRN Shortness Of Breath 02/
[2024-07-29] MEDS: MORPHINE SULFATE (*CRX) 2 MG/ML INJ IV PUSH (10:54)
[2024-07-29 11:11] LABS: Partial Thromboplastin Time 36.3 Seconds (22.3-36.8)
[2024-07-29] MEDS: HEPARIN SOD/D5W 100 UNITS/ML 25,000 UNITS/250 ML BAG 11 UNITS IV CONT (11:37)
[2024-07-29] MEDS: SODIUM BICARBONATE TAB 650 MG TABLET PO (11:38)
[2024-07-29] MEDS: HEPARIN SODIUM 5,000 UNITS/ML VIAL 5000 UNITS IV PUSH (11:38)
--- NOTE | 2024-07-29 14:45 | PC.NURSE ---
[facility] transfer center request for transfer by ACLS & vik. The patient was on a Heparin drip. [facility] called, they gave an ETA of half hour. 1230 called. Dispatcher apologized & said the new ETA 1430. I called [facility] to request an ACLS transfer with vik. [address] [facility] beading machine operator called back, saying he was currently arriving to our ER & would ask the ER charge if they could delay their transfer & take this one first. He called back within 5 minutes to let me know they were on their way up to get he patient. EMS arrived to the floor, after taking report from nurse Marla, they went to the room to get her onto the stretcher. They obtained a set of v/s. Pt blood pressure was 80s/40s. Provider notified & ordered IVF with the heparin drip. EMS waited in the room while these orders were obtained and implemented. [facility]10 EMS left for [place]. While en route, [facility] doc called to enquire what was the reason for the delay in transfer. Patient was taken directly to [facility] ER because she was unstable.
--- NOTE | 2024-07-29 14:53 | PC.NURSE ---
07/29/24 13:30PM EMS came to transport patient to [facility]. Reported to me by EMS of patient blood pressure of 82/50. Called [facility] to come see patient. Started bolus of Normal Saline. Rechecked patient's blood pressure, and blood pressure was within normal limits and patient was stable. EMS was given the OK to transport to [facility]. Updated Bhavana FORREST from [facility].
--- NOTE | 2024-07-29 15:30 | PC.NURSE ---
07/29/24 13:30pm EMS arrives to waste picker patient. Notified me of low blood pressure of 80/50. Called the provider. Provider at bedside gave orders to start normal saline and place heparin set as piggy back. EMS Attempted to place IV in Right arm with no success. Rechecked blood pressure and patient was stable to transport to [facility]. Called Bhavana from [facility] and gave update on patient.
[2024-07-29] MEDS: SODIUM CHLORIDE 0.9% IV 1,000 ML 999 ML IV CONT (15:51)
== END 2024-07-29 14:10 | disposition short-term general hospital (02) ==
LOC: ANHED 09:32 → ANH2MED 14:21
PROVIDERS: Student in an Organized Health Care Education/Training Program; Admitting Provider Internal Medicine; Emergency Provider Physician Assistant; PCP Physician Assistant; Visit Provider Nurse Practitioner Acute Care
DX: N17.9 Acute kidney failure, unspecified (principal); I70.202 Unspecified atherosclerosis of native arteries of extremities, left leg; I95.9 Hypotension, unspecified; K92.0 Hematemesis; R19.7 Diarrhea, unspecified; R53.83 Other fatigue; F03.90 Unspecified dementia, unspecified severity, without behavioral disturbance, psychotic disturbance, mood disturbance, and anxiety; I12.9 Hypertensive chronic kidney disease with stage 1 through stage 4 chronic kidney disease, or unspecified chronic kidney disease; N18.9 Chronic kidney disease, unspecified; J44.9 Chronic obstructive pulmonary disease, unspecified; I48.0 Paroxysmal atrial fibrillation; F41.8 Other specified anxiety disorders; M79.7 Fibromyalgia; E03.9 Hypothyroidism, unspecified; Z86.711 Personal history of pulmonary embolism; Z79.51 Long term (current) use of inhaled steroids; Z79.01 Long term (current) use of anticoagulants; Z86.73 Personal history of transient ischemic attack (TIA), and cerebral infarction without residual deficits; Z87.891 Personal history of nicotine dependence
CPT/HCPCS: 36415; 74176; 80053; 80061; 81001; 83605; 85025; 85610; 85730; 86140; 86850; 86900; 86901; 87040; 87045; 87086; 87427; 87449; 87493; 93005; 93926; 96361; 96365; 96374; 96375; 99285; A9270; G0378; J0696; J1644; J2270; J2470; J7030; J7120